=== PATIENT | male | born 1970 | race Caucasian/White ===

== ENCOUNTER → 2016-10-27 | Outpatient (REF) | payer OTHER ==
[2016-10-27 14:06] LABS: ALBUMIN 4.4 GM/DL (3.2-5.2); ALBUMIN/GLOBULIN RATIO 1.63 (1.00-1.93); ALKALINE PHOSPHATASE 53 U/L (45-117); ALT/SGPT 32 U/L (12-78); ANION GAP 8 MEQ/L (8-16); AST/SGOT 15 U/L (15-37); BILIRUBIN,TOTAL 0.6 MG/DL (0.2-1.0); BLOOD UREA NITROGEN 12 MG/DL (7-18); CALCIUM LEVEL 9.5 MG/DL (8.5-10.1); CARBON DIOXIDE LEVEL 27 MEQ/L (21-32); CHLORIDE LEVEL 107 MEQ/L (98-107); CHOLESTEROL LEVEL 207 MG/DL (<200); CREATININE FOR GFR 0.95 MG/DL (0.70-1.30); GLOMERULAR FILTRATION RATE > 60.0 (>60); GLUCOSE, FASTING 97 MG/DL (70-105); POTASSIUM SERUM 4.1 MEQ/L (3.5-5.1); SODIUM LEVEL 142 MEQ/L (136-145); TOTAL PROTEIN 7.1 GM/DL (6.4-8.2); TRIGLYCERIDES LEVEL 172 MG/DL (<150)
== END ==
LOC: M LAB REF 12:40
PROVIDERS: ATTEND Family Medicine Addiction Medicine
DX: E78.5 Hyperlipidemia, unspecified (principal)

== ENCOUNTER 2019-12-27 04:14 | Emergency (ER) | payer OTHER ==
[~2019-12-27] VITALS: Ht 167.6 cm; Wt 72.4 kg
[2019-12-27] MEDS ORDERED: CLAR10CA3 PO (04:26)
[2019-12-27] MEDS ORDERED: GI COCKTAIL 50ML BTL(HYOSCYAMINE/MAALOX/LIDOCAINE VISCOUS)(1:3:1) PO ONE (06:30)
[2019-12-27 06:56] LABS: BASO % 0.5 % (0.0-1.0); EOS % 0.2 % (0.0-3.0); HEMATOCRIT 43.2 % (42.0-52.0); HEMOGLOBIN 15.4 g/dl (13.5-17.5); LYMPH % 12.6 % (24.0-44.0); MEAN CORPUSCULAR HEMOGLOBIN 33.6 pg (27.0-33.0); MEAN CORPUSCULAR HGB CONC 35.6 g/dl (32.0-36.5); MEAN CORPUSCULAR VOLUME 94.1 fl (80.0-96.0); MONO # 1.3 10^3/uL (0.0-0.8); MONO % 16.3 % (0.0-5.0); NEUTROPHILS # 5.7 10^3/uL (1.5-8.5); NEUTROPHILS % 69.9 % (36.0-66.0); PLATELET COUNT, AUTOMATED 195 10^3/uL (150-450); RED BLOOD COUNT 4.59 10^6/uL (4.30-6.10); WHITE BLOOD COUNT 8.2 10^3/uL (4.0-10.0)
[2019-12-27 07:29] LABS: ALBUMIN 3.8 GM/DL (3.2-5.2); BILIRUBIN,DIRECT 0.3 MG/DL (0.0-0.2); BILIRUBIN,TOTAL 1.1 MG/DL (0.2-1.0); C REACTIVE PROTEIN QUANTITATIV 8.18 MG/DL (0.00-0.30); CALCIUM LEVEL 9.5 MG/DL (8.5-10.1); CREATININE FOR GFR 1.48 MG/DL (0.70-1.30); GLOMERULAR FILTRATION RATE 53.3 (>56); POTASSIUM SERUM 2.7 MEQ/L (3.5-5.1); TOTAL PROTEIN 7.6 GM/DL (6.4-8.2)
[2019-12-27] MEDS ORDERED: CARA1TAB6 PO (07:30)
[2019-12-27] MEDS ORDERED: ONDA4TAB6 PO (07:30)
[2019-12-27] MEDS ORDERED: PROT1TAB2 PO (07:30)
[2019-12-27 07:31] LABS: ERYTHROCYTE SEDIMENTATION RATE 51 mm/hr (0-20)
[2019-12-27] MEDS ORDERED: PANTOPRAZOLE 40MG VIAL (C9113 PER 1) IV ONE (07:45)
[2019-12-27] MEDS ORDERED: POTASSIUM CHLORIDE 10 MEQ SR TABLET PO ONE (07:45)
[2019-12-27] MEDS ORDERED: KCL 10MEQ/100ML SWI (KRUN) 10 MEQ in IV 1 EA IV ONE (07:45)
[2019-12-27] MEDS ORDERED: NS 1,000 ML IV ONE (07:45)
[2019-12-27 09:30] VITALS: BP 160/93
[2019-12-27] MEDS ORDERED: POTA1TAB14 PO (09:31)
--- NOTE | 2019-12-27 19:00 | ECGEPIP ---
[facility] - ED Test Date: 2019-12-27 Pat Name: DAWSON ROGERS Department: Room: - Gender: Male Care Services Manager: SAMANTAMANPREET : 1970 Requested By: ACE CRUZ PA-C. Order Number: [id number] Reading MD: Sissy Beverly Measurements Intervals [place] Rate: 88 P: 43 [place]: 151 QRS: 57 QRSD: 102 T: 43 QT: 388 QTc: 471 Interpretive Statements SINUS RHYTHM NONSPECIFIC T-WAVE ABNORMALITY PROLONGED QTC NO PRIOR Electronically Signed on 12-27-2019 18:59:51 EST by Sissy Beverly
== END 2019-12-27 10:19 | disposition home or self-care (01) ==
LOC: M ED 04:14
DX: K27.9 Peptic ulcer, site unspecified, unspecified as acute or chronic, without hemorrhage or perforation (principal); E86.0 Dehydration; E87.6 Hypokalemia; J45.909 Unspecified asthma, uncomplicated
CPT/HCPCS: 80048; 80076; 83690; 85025; 85652; 86140; 87880; 93005; 93041; 96361; 96365; 96375; 99285; C9113

== ENCOUNTER → 2020-01-31 | Outpatient (REF) | payer OTHER ==
[~2020-01-31] MED LIST: CARA1TAB6 PO; CLAR10CA3 PO; ONDA4TAB6 PO; POTA1TAB14 PO; PROT1TAB2 PO
[2020-01-31 17:47] LABS: BASO % 0.7 % (0.0-1.0); EOS # 0.1 10^3/uL (0.0-0.5); EOS % 1.8 % (0.0-3.0); HEMATOCRIT 37.3 % (42.0-52.0); LYMPH # 1.2 10^3/uL (1.5-5.0); LYMPH % 21.4 % (24.0-44.0); MEAN CORPUSCULAR HEMOGLOBIN 33.2 pg (27.0-33.0); MEAN CORPUSCULAR HGB CONC 34.9 g/dl (32.0-36.5); MEAN CORPUSCULAR VOLUME 95.2 fl (80.0-96.0); MONO # 0.6 10^3/uL (0.0-0.8); MONO % 11.5 % (0.0-5.0); NEUTROPHILS # 3.5 10^3/uL (1.5-8.5); NEUTROPHILS % 64.2 % (36.0-66.0); PLATELET COUNT, AUTOMATED 135 10^3/uL (150-450); RED BLOOD COUNT 3.92 10^6/uL (4.30-6.10); WHITE BLOOD COUNT 5.5 10^3/uL (4.0-10.0)
[2020-01-31 18:06] LABS: ALBUMIN 4.4 GM/DL (3.2-5.2); ALT/SGPT 38 U/L (12-78); BILIRUBIN,TOTAL 0.9 MG/DL (0.2-1.0); BLOOD UREA NITROGEN 12 MG/DL (7-18); CALCIUM LEVEL 8.7 MG/DL (8.5-10.1); CARBON DIOXIDE LEVEL 26 MEQ/L (21-32); CHLORIDE LEVEL 101 MEQ/L (98-107); CHOLESTEROL LEVEL 243 MG/DL (<200); CHOLESTEROL RISK RATIO 6.394 (<5); CREATININE FOR GFR 0.87 MG/DL (0.70-1.30); GLOMERULAR FILTRATION RATE > 60.0 (>56); GLUCOSE, FASTING 107 MG/DL (70-100); HDL CHOLESTEROL 38 MG/DL (>40); LDL CHOLESTEROL 174 MG/DL (<100); NON-HDL-C 205 MG/DL; POTASSIUM SERUM 3.1 MEQ/L (3.5-5.1); SODIUM LEVEL 137 MEQ/L (136-145); TOTAL PROTEIN 7.3 GM/DL (6.4-8.2); TRIGLYCERIDES LEVEL 157 MG/DL (<150)
== END ==
LOC: M LAB REF 16:27
PROVIDERS: ATTEND Physician Assistant
DX: F51.04 Psychophysiologic insomnia (principal); Z13.228 Encounter for screening for other metabolic disorders; Z13.220 Encounter for screening for lipoid disorders

== ENCOUNTER 2020-03-04 12:25 | Inpatient (IN) | payer OTHER ==
[~2020-03-04] VITALS: Ht 167.6 cm; Wt 76.8 kg
--- OUTSIDE RECORDS SUMMARY | 2020-03-04 12:31 | CCD ---
Author Author [facility] Organization [facility] Address Unknown Phone Unavailable Care Team Providers Care Microstrategy Developer Name Role Phone [facility], JLAM Unavailable Unavailable Scordo, M Rain PA Unavailable Unavailable Scordo, M Rain PA Unavailable Unavailable Scordo, M Rain PA Unavailable Unavailable Scordo, M Rain PA Unavailable Unavailable Scordo, M Rain PA Unavailable Unavailable Scordo, M Rain PA Unavailable Unavailable Scordo, M Rain PA Unavailable Unavailable Scordo, M Rain PA Unavailable Unavailable Scordo, M Rain PA Unavailable Unavailable Scordo, M Rain PA Unavailable Unavailable Scordo, M Rain PA Unavailable Unavailable Scordo, M Rain PA Unavailable Unavailable Scordo, M Rain PA Unavailable Unavailable Scordo, M Rain PA Unavailable Unavailable Scordo, M Rain PA Unavailable Unavailable Scordo, M Rain PA Unavailable Unavailable Scordo, M Rain PA Unavailable Unavailable Scordo, M Rain PA Unavailable Unavailable Scordo, M Rain PA Unavailable Unavailable Scordo, M Rain PA Unavailable Unavailable Scordo, M Rain PA Unavailable Unavailable Scordo, M Rain PA Unavailable Unavailable Scordo, M Rain PA Unavailable Unavailable Scordo, M Rain PA Unavailable Unavailable Scordo, M Rain PA Unavailable Unavailable Scordo, M Rain PA Unavailable Unavailable Scordo, M Rain PA Unavailable Unavailable Scordo, M Rian PA Unavailable Unavailable Scordo, M Rain PA Unavailable Unavailable Scordo, M Rain PA Unavailable Unavailable Scordo, M Rain PA Unavailable Unavailable Scordo, M Rain PA Unavailable Unavailable Scordo, M Rain PA Unavailable Unavailable Scordo, M Rain PA Unavailable Unavailable Scordo, M Rain PA Unavailable Unavailable Scordo, M Rain PA Unavailable Unavailable Scordo, M Rain PA Unavailable Unavailable Scordo, M Rain PA Unavailable Unavailable Scordo, M Rain PA Unavailable Unavailable Scordo, M Rain PA Unavailable Unavailable Dille, E Rema DDS Unavailable Unavailable Dille, E Rema DDS Unavailable Unavailable Dille, E Rema DDS Unavailable Unavailable Dille, E Rema DDS Unavailable Unavailable Re-disclosure Warning The records that you are about to access may contain information from federally-assisted alcohol or drug abuse programs. If such information is present, then the following federally mandated warning applies: This information has been disclosed to you from records protected by federal confidentiality rules (42 CFR part 2). The federal rules prohibit you from making any further disclosure of this information unless further disclosure is expressly permitted by the written consent of the person to whom it pertains or as otherwise permitted by 42 CFR part 2. A general authorization for the release of medical or other information is NOT sufficient for this purpose. The Federal rules restrict any use of the information to criminally investigate or prosecute any alcohol or drug abuse patient.The records that you are about to access may contain highly sensitive health information, the redisclosure of which is protected by Article 27-F of the [facility] Public Health law. If you continue you may have access to information: Regarding HIV / AIDS; Provided by facilities licensed or operated by the [facility] Office of Mental Health; or Provided by the [facility] Office for People With Developmental Disabilities. If such information is present, then the following [facility] mandated warning applies: This information has been disclosed to you from confidential records which are protected by state law. State law prohibits you from making any further disclosure of this information without the specific written consent of the person to whom it pertains, or as otherwise permitted by law. Any unauthorized further disclosure in violation of state law may result in a fine or penitentiary sentence or both. A general authorization for the release of medical or other information is NOT sufficient authorization for further disc losure. Family History Family Member Name Family Member Gender Family Member Status Date o f Status Description Data Source(s) Unknown Unknown Problem MED[facility] ([facility]) Encounters Encounter Providers Location Date Indications Data Source(s ) Rain Calero PA-C: [address] [place] [phone], Ph. Attender: Rain [facility] - [facility] 01[facility]30/2020 12:00:00 AM EST ANA ([facility]) [facility]/07/2019 12:02:20 AM EDT [facility] 11/06/2019 03:05:00 PM EDT [facility] 11/06/2019 02:55:01 PM EDT [facility] 11/06/2019 02:06:01 PM EDT [facility] 11/06/2019 02:05:00 PM EDT [facility] 10/15/2019 01:46:00 PM EDT [facility] 10/15/2019 01:33:00 PM EDT [facility] 10/15/2019 01:28:01 PM EDT [facility] Out[facility] 10/15/2019 10:55:01 AM EDT [facility] Out[facility] 10/15/2019 09:20:00 AM EDT [facility] Outpatient Att[facility] 10/15/2019 08:41:00 AM EDT [facility] Outpatient [facility] 10/15/2019 08:01:01 AM EDT [facility] Outpatient [facility]: [facility] 10/15/2019 07:43:00 AM EDT [facility] Outpatient Attender: TRESSA HOBBS FP 10/10/2019 10:45:01 AM EDT [facility] 08/16/2019 12:02:07 AM EDT [facility] Outpatient Attender: TRESSA HOBBS [facility] 08/15/2019 12:40:00 PM EDT [facility] Outpatient Attender: TRESSA HOBBS FP 08/15/2019 12:39:00 PM EDT [facility] Outpatient Attender: Rema Haywood DDS [facility] 07/31/2019 10:01:01 A M EDT [facility] Outpatient Attender: Rema Haywood DDS [facility] 07/30/2019 02:59:00 P M EDT [facility] Outpatient Attender: Rema Haywood DDS [facility] 07/24/2019 07:41:54 P M EDT [facility] Outpatient Attender: Rema Haywood DDS [facility] Prov[facility] Payer name Policy type / Coverage type Policy ID Covered republican ID Covered republican's relationship to nassar Policy Nassar Plan Information [facility] [id number] SP [id number] Sliding Fee Scale O [id number] S [id number] [facility] P [id number] S [id number] Medicaid S [id number] S [id number] [facility] P [id number] S [id number] [facility] UNAVAILABLE S UNAVAILA BLE [facility] P [id number] S [id number] [facility] Health Maintenance Organization (HMO) [id number] Self [id number] [facility] S [id number] S [id number] [facility] P [id number] S [id number] Medicaid Dental S [id number] S [id number] [facility] P [id number] S [id number] Medicaid S [id number] S [id number] [facility] P [id number] S [id number] MEDICAID [id number] SP [id number] [facility] I [id number] Self [id number] MEDICAID M [id number] Self [id number] Medicaid P UNAVAILABLE S UNAVAILA BLE Problems, Conditions, and Diagnoses Code Display Name Description Problem Type Effective Dates Data Source(s) 18986974 Crohn's disease Crohn's Disease Problem 11/29/2019 04:1 3:38 PM EDT ANA ([facility]) [id number] Depressive disorder Depressive Disorder Problem 1 04:13:38 PM EDT ANA ([facility]) [id number] Asthma Asthma Problem 11/29/2019 04:13:37 PM ED T ANA ([facility]) [id number] Tobacco use and exposure - finding Tobacco Use a nd Exposure - Finding Problem 10/26/2016 12:00:00 AM EDT - 01/30/2020 12:00:00 AM ES Didi PEREZ ([facility]) [id number] Procedure by method Procedure by Method Problem 0 10/26/2016 12:00:00 AM EDT - 01/30/2020 12:00:00 AM EST ANA ([facility]) Results ID Date Data Source [id number] 11/06/2019 02:09:07 PM EDT [facility] Current Problems: Chews tobacco (ICD10-Z 72.0)Encounter for general adult medical examination with abnormal findings (ICD-V70.0) (IAY80-Y02.01)DENTAL CARIES EXTENDING INTO PULP (ICD-521.03) (HTA85-Q31.63)Machias teeth impaction (ICD- 520.6) (TSE77-Y02.1)Hyperlipidemia (ICD-272.4) (OUO04-O55.5)Vitamin D deficiency (ICD-268.9) (SPY79-A31.9)Ventral hernia without mention of obstruction or gangrene (ICD-553.2)Allergic rhinitis (ICD-477.9) (QKU63-E98.9)INGUINAL HERNIA, LEFT (ICD-550.90) (AYM62-N71.90)HYPERTENSION (ICD-401.9) (IMR54-L27)FRACTURE, CLAVICLE, RIGHT (ICD-810.00) (NYW83-O73.001)ALCOHOL ABUSE (ICD-305.00) (ICD10- F10.10)CROHN'S DISEASE (ICD-555.9) (BJD74-Z00.90)FAMILY HISTORY OF SEVERE ALLERGIES (ICD-V19.6) HIGH CHOLESTEROL (ICD-V18.19) (TZJ62-V34.49)FAMILY HISTORY OF ASTHMA (ICD-V17.5) (TYR57-W91.5)FH OF ANESTHETIC COMPLICATIONS (ICD- V19.8)FAMILY HISTORY OF ALCOHOLISM (ICD-V61.41) (VTO18-S11.72)DEPRESSION (ICD- 311) (WXS90-F10.9)ASTHMA (ICD-493.90) (KPS97-J90.909)Current Medications: [facility] NI COTINE 2 MG MOUTH/THROAT LOZENGE (NICOTINE POLACRILEX) Use 1-2 every 3-4 hours as needed. MDD 15 lozenges.; Route: MOUTH/THROATEPIPEN 2-TAMEKA 0.3 MG/0.3ML INJECTION SOLUTION AUTO-INJECTOR (EPINEPHRINE) inj as directed for beestingsVENTOLIN HFA 108 (90 Base) MCG/ACT INHALATION AEROSOL SOLUTION (ALBUTEROL SULFATE) 2 puffs qid prn for short of breathCurrent Allergies: * ANESTHESIA (Critical)* BEE STINGS (Critical)* LATEX (Severe)LISINOPRIL (LISINOPRIL) (Mild) Dental Chart: Procedures:Type - CDT Code - Description B - (D2150) Amalgam, 2 surfaces, primary or permanent on Tooth # 12 on Tooth Surface OB (Performed by Rema Haywood DDS) Chart Alert:No hx per [facility] online records. 09/21/2016 RR Chart Notes:molly (Nov 06 2019 3:01PM): [facility] (-)per pt states that tested positive for COVID-19 back June of 2019. [email or web address] Additional PPE requirements due to COVID-19 in the dental setting, N95, surgical mask, hair covering, gown CC: none. Hurricaine Watermelon Topical, UL infiltration 1 carp Lidocaine HCL 2% with 1:100,000 epi. Operative: #12-OB final step AmalgaBond and Amalgam. Excavated with High Speed, Slow Speed and Spoon. Occlusion checked and polished. No complications. Advised pt. if adventism fails again, composite can be attempted or as previously stated, a crown to be done on #12. POI given and discussed with pt. Assisted by:AMPt was cooperative. NV: p/e.Per pt. requests adventism on #32 and #17. Advised pt. that would discuss with provider who tx planned originally first.Rema Haywood DDS by molly (11/06/2019 3:01 PM): Tooth Notes and Watches:- Tooth 12 Note: Rema Haywood DDS by tiffany (10/15/2019 9:14 AM): Lidocaine is to be used. - Tooth 21 Watch: MesialBria Bueno by anne marie (06/02/2018 11:10 AM): - Tooth 31 Watch: BuccalBria Bueno by anne marie (06/02/2018 11:10 AM): Assessment & Plan Medications:[facility]S NICOTINE 2 MG MOUTH/THROAT LOZENGEEPIPEN 2-TAMEKA 0.3 MG/0.3ML INJECTION SOLUTION AUTO-INJECTORVENTOLIN HFA 108 (90 Base) MCG/ACT INHALATION AEROSOL SOLUTIONAllergies:* ANESTHESIA (Critical)* BEE STINGS (Critical)* LATEX (Severe)LISINOPRIL (LISINOPRIL) (Mild) Name Value Range Interpretation Code Description Data Jenn rce(s) Supporting Document(s) ID Date Data Source [id number] 10/15/2019 08:45:32 AM EDT [facility] Current Problems: Chews tobacco (ICD10-Z 72.0)Encounter for general adult medical examination with abnormal findings (ICD-V70.0) (HQH92-Q04.01)DENTAL CARIES EXTENDING INTO PULP (ICD-521.03) (QUV04-G31.63)Machias teeth impaction (ICD- 520.6) (EKZ89-N91.1)Hyperlipidemia (ICD-272.4) (OCN08-H21.5)Vitamin D deficiency (ICD-268.9) (GRX78-F13.9)Ventral hernia without mention of obstruction or gangrene (ICD-553.2)Allergic rhinitis (ICD-477.9) (CUR30-P52.9)INGUINAL HERNIA, LEFT (ICD-550.90) (EEK99-O44.90)HYPERTENSION (ICD-401.9) (WLS84-C58)FRACTURE, CLAVICLE, RIGHT (ICD-810.00) (OMS82-M35.001)ALCOHOL ABUSE (ICD-305.00) (ICD10- F10.10)CROHN'S DISEASE (ICD-555.9) (VEQ39-H89.90)FAMILY HISTORY OF SEVERE ALLERGIES (ICD-V19.6)FH HIGH CHOLESTEROL (ICD-V18.19) (ZLK38-F20.49)FAMILY HISTORY OF ASTHMA (ICD-V17.5) (GMF46-B83.5)FH OF ANESTHETIC COMPLICATIONS (ICD- V19.8)FAMILY HISTORY OF ALCOHOLISM (ICD-V61.41) (YHQ38-W32.72)DEPRESSION (ICD- 311) (JSF93-D84.9)ASTHMA (ICD-493.90) (MEE74-U06.909)Problem list reviewed nelda shaffer this update.Current Medications: CVS NICOTINE 2 MG MOUTH/THROAT LOZENGE (NICOTINE POLACRILEX) Use 1-2 every 3-4 hours as needed. MDD 15 lozenges.; Route: MOUTH/THROATEPIPEN 2-TAMEKA 0.3 MG/0.3ML INJECTION SOLUTION AUTO-INJECTOR (EPINEPHRINE) inj as directed for beestingsVENTOLIN HFA 108 (90 Base) MCG/ACT INHALATION AEROSOL SOLUTION (ALBUTEROL SULFATE) 2 puffs qid prn for short of breathMedication list reviewed during this update.Current Allergies: * ANESTHESIA (Critical)* BEE STINGS (Critical)* LATEX (Severe)LISINOPRIL (LISINOPRIL) (Mild)Allergy list reviewed during this update. Dental Chart: Procedures:Type - CDT Code - Description B - (D0250) Extraoral, 2D projection radiographic images created using a stationary radiation source, and detector (Performed by Rema Haywood DDS) B - (D0140) Limited oral evaluation - problem focused on Tooth # 12 (Performed by Rema Haywood DDS) Treatments:Type - CDT Code - Description T - (D2150) Amalgam, 2 surfaces, primary or permanent on Tooth # 12 on Tooth Surface OB (Performed by Rema Haywood DDS) Chart Alert:No hx per [facility] online records. 09/21/2016 RR Chart Notes:molly (Oct 15 2019 10:54AM): Additional PPE requirements due to COVID-19 in the dental setting, N95, surgical mask, hair covering, gown and shield. .S: CC:"I had a really weird cavity on the inside of my tooth and all the sudden my tooth fell apart, rubs on the inside of my cheek"O: RMHx Latex and anesthesia allergies. HPI: couple weeks PL: 2 BP: 166/111. To visit his primary provider and have BP checked again. PA taken. # 12 has huge amlgam and chipped OB. A: DDS recommends [facility] for the best option. , DX:. chipped amalgam. P: Filling DDS informed pt filling may not stay. Pt. wants to try filling since he said his insurance will not pay for crown. Informed Pt about new pain management policy of the clinic regarding about narcotic,told pt to alternate Ibuprophen 600- 800mg and tylenol 500mg every 4 to 6 hrs for pain when needed. Assisted By: KYRA NV: Cece email for pt Rema Morales DDS by molly (10/15/2019 10:54 AM): Tooth Notes and Watches:- Tooth 12 Note: Rema Haywood DDS by tiffany (10/15/2019 9:14 AM): Lidocaine is to be used. - Tooth 21 Watch: MesialBria Bueno by anne marie (06/02/2018 11:10 AM): - Tooth 31 Watch: BuccalBria Bueno by anne marie (06/02/2018 11:10 AM): Assessment & Plan Medications:CVS NICOTINE 2 MG MOUTH/THROAT LOZENGEEPIPEN 2-TAMEKA 0.3 MG/0.3ML INJECTION SOLUTION AUTO- INJECTORVENTOLIN HFA 108 (90 Base) MCG/ACT INHALATION AEROSOL SOLUTIONAllergies:* ANESTHESIA (Critical)* BEE STINGS (Critical)* LATEX (Severe )LISINOPRIL (LISINOPRIL) (Mild) Name Value Range Interpretation Code Description Data Jenn rce(s) Supporting Document(s) Procedure Vital Signs ID Date Data Source UNK Name Value Range Interpretation Code Description Data Source(s) Body weight 2742.4 [oz_av] 2742.4 [oz_av] ATHJAY A ([facility]) Systolic blood pressure 166 mm[Hg] 166 mm[Hg] A THENA ([facility]) Body mass index (BMI) [Ratio] 27.2 kg/m2 27.2 k g/m2 ANA ([facility]) Body height 66.5 [in_i] 66.5 [in_i] ANA ([facility]) Diastolic blood pressure 115 mm[Hg] 115 mm[Hg] ANA ([facility])
--- OUTSIDE RECORDS SUMMARY | 2020-03-04 12:31 | CCD ---
Author Organization Unknown Address [address] [place] [address] Phone [phone] Care Team Providers Care Civil Geotechnical Engineer Name Role Phone Rain Calero Unavailable Unavailable Allergies Code Code System Name Reaction Severity Status Onset [id number] RxNorm Latex Active 08/16/2013 81147 RxNorm Lisinopril Active 10/26/2016 Bee Venom Protein (Honey Bee) Other Severe Active Notes: ANESTHESIA - Reaction: malignant hyperthermia Medications Name Status Start Date Stop Date Claritin 10 mg tablet Take 1 tablet every day by oral route. Active Not available hydroxyzine HCl 50 mg tablet 1 tablet once daily 30 mins before bedtime for sleep Active Not available ondansetron 4 mg disintegrating tablet DISSOLVE 1 TABLET IN MOUTH EVERY 6 TO 8 HOURS NEEDED FOR NAUSEA AND VOMITING Active Not available pantoprazole 40 mg tablet,delayed releas e TAKE 1 TABLET BY MOUTH ONCE DAILY Active Not a vailable potassium chloride ER 20 mEq tablet,extended release(part/cryst) Active Not available sucralfate 1 gram tablet TAKE 1 TABLET BY MOUTH 4 TIMES DAILY 1 HOUR BEFORE MEALS AND AT BEDTIME ON AN EMPTY STOMACH MAY DISSOLVE TABLET IN 5 10ML WATER. Active Not available Problems Name Status Onset Date Source Alcohol Abuse Active 08/16/2013 History Fracture of Clavicle Active 08/16/2013 History Hypertensive Disorder Active 11/14/2013 History Inguinal Hernia Active 11/14/2013 History Allergic Rhinitis Active 12/17/2013 History Vitamin D Deficiency Active 12/09/2014 History Hyperlipidemia Active 01/20/2015 History Impacted Tooth Active 09/27/2016 History Dental Caries on Smooth Surface Penetrating into Pulp Active 10/06/2016 History Procedure by Method Unknown 10/26/2016 History Tobacco Use and Exposure - Finding Unknown 10/26/2016 History Depressive Disorder Active History Asthma Active History Crohn's Disease Active History Procedures Notes: Fx Clavicle 04/2013, Hernia both s ides in s, Hernia-2013 Results Lab Results None recorded. Past Encounters 01/30/2020 Chronic Insomnia; Endocrine/metabolic Screening; Hyperlipidemia Screening; Gastric Ulcer; Mental Health Screening Assessment Rain Calero PA-C: [address] [place] [phone], Ph. Social History Tobacco Smoking Status Never Smoker Vaccine List Vaccine Type Tdap 10/26/20160.5 mL Plan of Care Reminders Provider Appointments None recorded. Lab None recorded. Referral None recorded. Procedures None recorded. Surgeries None recorded. Imaging None recorded. Vitals Height Weight BMI Blood Pressure 66.5 in 171 lbs 6.4 oz 27.2 kg/m2 166/115 mm[H g]
[2020-03-04] MEDS ORDERED: NS 2,320 ML in IV 1 EA IV ONE (13:00)
[2020-03-04 13:03] LABS: BASO # 0.1 10^3/uL (0.0-0.2); BASO % 0.7 % (0.0-1.0); EOS % 0.3 % (0.0-3.0); HEMATOCRIT 39.7 % (42.0-52.0); HEMOGLOBIN 13.6 g/dl (13.5-17.5); LYMPH # 2.4 10^3/uL (1.5-5.0); LYMPH % 25.4 % (24.0-44.0); MEAN CORPUSCULAR HEMOGLOBIN 32.8 pg (27.0-33.0); MEAN CORPUSCULAR HGB CONC 34.3 g/dl (32.0-36.5); MEAN CORPUSCULAR VOLUME 95.7 fl (80.0-96.0); MONO # 0.8 10^3/uL (0.0-0.8); MONO % 8.9 % (0.0-5.0); NEUTROPHILS % 62.9 % (36.0-66.0); RED BLOOD COUNT 4.15 10^6/uL (4.30-6.10); WHITE BLOOD COUNT 9.5 10^3/uL (4.0-10.0)
[2020-03-04 13:29] LABS: CK-MB VALUE MASS 1.8 NG/ML (<3.6); CPK CREATINE PHOSPHOKINASE 604 U/L (39-308); TROPONIN I < 0.02 NG/ML (< 0.10)
[2020-03-04 13:39] LABS: PLATELET COUNT, AUTOMATED 79 10^3/uL (150-450)
[2020-03-04 13:48] LABS: ALBUMIN 4.4 GM/DL (3.2-5.2); BILIRUBIN,TOTAL 1.8 MG/DL (0.2-1.0); CALCIUM LEVEL 9.2 MG/DL (8.5-10.1); CREATININE FOR GFR 1.89 MG/DL (0.70-1.30); GLOMERULAR FILTRATION RATE 40.2 (>56); POTASSIUM SERUM 2.4 MEQ/L (3.5-5.1); THYROID STIMULATING HORMONE 2.71 uIU/ML (0.358-3.740); TOTAL PROTEIN 7.6 GM/DL (6.4-8.2)
--- NOTE | 2020-03-04 13:51 | REP ---
INDICATION: cough, sob. COMPARISON: None. TECHNIQUE: SINGLE PORTABLE AP VIEW OF THE CHEST WAS PERFORMED. FINDINGS: THERE IS NO ACUTE INFILTRATE OR PULMONARY EDEMA. LUNGS ARE CLEAR. HEART IS NOT SIGNIFICANTLY ENLARGED. MEDIASTINAL SILHOUETTE IS UNREMARKABLE. THE VISUALIZED OSSEOUS STRUCTURES ARE INTACT.Two small screws are seen in the distal right clavicle. There is mild elevation of the right hemidiaphragm. IMPRESSION: NO ACUTE PULMONARY DISEASE. <Electronically signed by Deven Peters > 03/04/20 1039
[2020-03-04] MEDS ORDERED: KCL 10MEQ/100ML SWI (KRUN) 10 MEQ in IV 1 EA IV ONE (14:15)
[2020-03-04] MEDS ORDERED: cefTRIAXone SOD 2 GM in D5W MINI-BAG PLUS 50 ML IV ONE (14:15)
--- NOTE | 2020-03-04 15:09 | REP ---
INDICATION: fever, lactic acidosis. COMPARISON: Radiograph today. TECHNIQUE: CT chest performed without the use of intravenous contrast. Sagittal and coronal reconstruction images are performed. FINDINGS: Lungs: Clear, no infiltrate or nodule. Mediastinum: No gross adenopathy. Betina: No gross adenopathy. Axilla: No gross adenopathy. Pleura: No effusion. Heart: Not enlarged. Thoracic aorta: No aneurysm. Upper abdominal structures: Grossly unremarkable. IMPRESSION: Unremarkable noncontrast CT chest. <Electronically signed by Deven Peters > 03/04/20 [id number]
--- NOTE | 2020-03-04 15:17 | REP ---
INDICATION: fever, lactic acidosis COMPARISON: None. TECHNIQUE: CT Scan of the abdomen and pelvis was performed without intravenous contrast. Sagittal and coronal reconstruction images performed. FINDINGS: Lung bases: Unremarkable. Liver: There is diffuse low attenuation throughout the liver. The findings may represent significant fatty infiltration or hepatitis. The liver does not appear to be enlarged. Gallbladder: Dense bile is seen in the gallbladder. Spleen: Grossly unremarkable.. Adrenals: Normal. Pancreas: Grossly unremarkable.. Kidneys: No hydronephrosis or nephrolithiasis. Ureters demonstrate no dilatation or calculus. Small and large bowel: Grossly unremarkable.. Free fluid: None. Abdominal aorta: No aneurysm. Adenopathy: None. Appendix: Not inflamed. Osseous structures: Unremarkable. Pelvis: No mass. No bladder calculus seen. There is a small left inguinal hernia containing fat. IMPRESSION: Diffuse low attenuation throughout the liver. This may indicate significant fatty infiltration or hepatitis. Dense bile is seen in the gallbladder. Small left inguinal hernia contains fat. <Electronically signed by Deven Peters > 03/04/20 [id number]
[2020-03-04] MEDS ORDERED: GLUCAGON INJ 1MG VIAL SC PRN (16:00)
[2020-03-04] MEDS ORDERED: GLUCOSE 4GM CHEW TABLET PO PRN (16:00)
[2020-03-04] MEDS ORDERED: DEXTROSE 50% 50 ML SYRINGE IV PRN (16:00)
[2020-03-04] MEDS: KCL 40MEQ in NS 1000ML 1,000 ML IV SCH ×2 (16:07→23:23)
[2020-03-04] MEDS ORDERED: CLAR10TA7 PO (16:14)
[2020-03-04] MEDS ORDERED: PANT40TA29 PO (16:14)
[2020-03-04] MEDS ORDERED: VITMTA PO (16:14)
[2020-03-04] MEDS ORDERED: CALC600T61 PO (16:14)
[2020-03-04] MEDS ORDERED: ONDA4TAB6 PO (16:14)
[2020-03-04] MEDS ORDERED: HYDR50TA70 PO (16:14)
[2020-03-04] MEDS ORDERED: HM P99TA PO (16:14)
[2020-03-04] MEDS ORDERED: SUCR1TAB56 PO (16:14)
--- NOTE | 2020-03-04 16:27 | REP ---
INDICATION: pain. COMPARISON: 12/19/2013. TECHNIQUE: Real-time sonographic evaluation of right upper quadrant performed. FINDINGS: The gallbladder demonstrates intraluminal sludge, but no calculi, wall thickening or pericholecystic fluid. There is no intrahepatic or extrahepatic biliary dilatation, common bile duct measures 4 mm in maximum diameter. The liver demonstrates diffuse increased heterogeneous echotexture compatible with diffuse fibrofatty infiltration. No gross mass is seen. Pancreas cannot be seen due to overlying bowel gas. The right kidney demonstrates no hydronephrosis, with a normal size of 11.6 cm in length. No free fluid is seen. IMPRESSION: Gallbladder sludge but no stones, wall thickening, pericholecystic fluid or evidence of biliary dilatation. Diffuse fibrofatty infiltration of the liver. <Electronically signed by Deven Peters > 03/04/20 1342
[2020-03-04 17:20] LABS: D-DIMER QUANT 2554.01 ng/ml (<500)
[2020-03-04 17:43] LABS: BLOOD UREA NITROGEN 13 MG/DL (7-18); CALCIUM LEVEL 8.4 MG/DL (8.5-10.1); CARBON DIOXIDE LEVEL 26 MEQ/L (21-32); CHLORIDE LEVEL 98 MEQ/L (98-107); CREATININE FOR GFR 1.46 MG/DL (0.70-1.30); FERRITIN 3350 NG/ML (26-388); GLOMERULAR FILTRATION RATE 54.2 (>56); GLUCOSE, FASTING 124 MG/DL (70-100); LDH LACTATE DEHYDROGENASE 418 U/L (87-241); POTASSIUM SERUM 2.4 MEQ/L (3.5-5.1); SODIUM LEVEL 132 MEQ/L (136-145); TROPONIN I < 0.02 NG/ML (< 0.10)
[2020-03-04] MEDS ORDERED: ONDANSETRON 4MG/2ML VIAL IV PRN (18:00)
[2020-03-04] MEDS ORDERED: ACETAMINOPHEN 500 MG TAB PO ONE (18:00)
[2020-03-04] MEDS ORDERED: FIORICET TAB PO ONE (19:15)
--- NOTE | 2020-03-04 19:34 | HPEPDOC ---
[facility] Medical History & Physical Date of Admission Mar 04, 2020 Date of Service: Mar 04, 2020 History and Physical CHIEF COMPLAINT: intractable nausea, vomiting, diarrhea HISTORY OF PRESENT ILLNESS: 49 y/o male w pmh significant for peptic ulcer disease on chronic protonix and carafate, asthma, htn, hernia repair x 3, malignant hyperthermia postop presents to the ED with generalized weakness, dizziness, crawling into the bathroom with his roommate assisitng him, due to severe dehydration from 3-5 nonprojectile nonbilious vomiting for the past few days, diarrhea 5x/day loose watery voluminous nonbloody nonmucusy with epigastric abdominal discomfort and fever 103 today. Pt says his symptoms nausea and vomiting has been going on since April last year 2-3days/week but abates w/o intervention, w/o weight loss, dy sphagia, hematemesis, or chest pain. He denies drinking well water, any recent travel, recent antibiotic use, exposure to covid or anyone with cdiff, or sorbitol use. He was referred to GI Dr. Vicente this month. He c/o having hallucinations thinking that his sister that he doesn't want to talk to was at the door knocking. He tried to stand up 2-3 times, but collapsed on the couch due to weakness and tremors. He c/o palpitations and started having sob with wheezing with generalized headache today.COVID -19 was negative in the ER. CT abd/pelvis: gallbladder sludge w/o biliary dilatation despite elevated bilirubin and lipase. He was found to have severe hypokalemia and acute renal failure. Hospitalist was asked to admit for acute kidney injury, hypokalemia, intractable n/v/diarrhea. PAST MEDICAL /SURGICAL HISTORY: peptic ulcer disease on chronic protonix and carafate, asthma, htn, hernia repair x 3, malignant hyperthermia postop SOCIAL HISTORY: lives with a roommate, denies ETOH /drug abuse, unemployed. 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 drank ETOH heavily when and daughter were killed by a drunk logging truck driver. FAMILY HISTORY: Father: ETOH liver cirrhosis Mother: crohns sister: breast cancer ALLERGIES: Please see below. REVIEW OF SYSTEMS: 12pt ROS negative aside from +findings on HPI HOME MEDICATIONS: Please see below. PHYSICAL EXAMINATION: VITAL SIGNS: see below GENERAL APPEARANCE: aaox 3 answering questions appropriately no distress no pallor or icterus HEENT: dry mm no cervical LAD, thyromegaly or JVD CARDIOVASCULAR: S1S2 sinus tachycardia LUNGS: diminished no rales ABDOMEN: +slight epigastric tenderness no rebound guarding soft +bs x 4quadrants tympanitic no fluid wave EXTREMITIES:-c/c/e LABORATORY DATA: See below. IMAGING: see below 03/04/20 CTABD/PELVIS CT Scan of the abdomen and pelvis was performed without intravenous contrast. Sagittal and coronal reconstruction images performed. FINDINGS: Lung bases: Unremarkable. Liver: There is diffuse low attenuation throughout the liver. The findings may represent significant fatty infiltration or hepatitis. The liver does not appear to be enlarged. Gallbladder: Dense bile is seen in the gallbladder. Spleen: Grossly unremarkable.. Adrenals: Normal. Pancreas: Grossly unremarkable.. Kidneys: No hydronephrosis or nephrolithiasis. Ureters demonstrate no dilatation or calculus. Small and large bowel: Grossly unremarkable.. Free fluid: None. Abdominal aorta: No aneurysm. Adenopathy: None. Appendix: Not inflamed. Osseous structures: Unremarkable. Pelvis: No mass. No bladder calculus seen. There is a small left inguinal hernia containing fat IMPRESSION: Diffuse low attenuation throughout the liver. This may indicate significant fatty infiltration or hepatitis. Dense bile is seen in the gallbladder. Small left inguinal hernia contains fat. <Electronically signed by Deven Peters > 03/04/20 1513 03/04/20 GALLBLADDER ULTRASOUND Real-time sonographic evaluation of right upper quadrant performed. FINDINGS: The gallbladder demonstrates intraluminal sludge, but no calculi, wall t hickening or pericholecystic fluid. There is no intrahepatic or extrahepatic biliary dilatation, common bile duct measures 4 mm in maximum diameter. The liver demonstrates diffuse increased heterogeneous echotexture compatible with diffuse fibrofatty infiltration. No gross mass is seen. Pancreas cannot be seen due to overlying bowel gas. The right kidney demonstrates no hydronephrosis, with a normal size of 11.6 cm in length. No free fluid is seen. IMPRESSION: Gallbladder sludge but no stones, wall thickening, pericholecystic fluid or evidence of biliary dilatation. Diffuse fibrofatty infiltration of the liver. <Electronically signed by Deven Peters > 03/04/20 1624 03/04/[address] chest performed without the use of intravenous contrast. Sagittal and coronal reconstruction images are performed. FINDINGS: Lungs: Clear, no infiltrate or nodule. Mediastinum: No gross adenopathy. Betina: No gross adenopathy. Axilla: No gross adenopathy. Pleura: No effusion. Heart: Not enlarged. Thoracic aorta: No aneurysm. Upper abdominal structures: Grossly unremarkable. IMPRESSION: Unremarkable noncontrast CT chest. <Electronically signed by Deven Peters > 03/04/20 4715 MICROBIOLOGY: Please see below. ASSESSMENT/PLAN: 49 y/o male w pmh significant for peptic ulcer disease on chronic protonix and carafate, asthma, htn, hernia repair x 3, malignant hyperthermia postop presents to the ED with generalized weakness, dizziness, crawling into the bathroom with his roommate assisting him, due to severe dehydration from 3-5 nonprojectile nonbilious vomiting for the past few days, diarrhea 5x/day loose watery voluminous nonbloody nonmucusy with epigastric abdominal discomfort and fever 103 today. Pt says his symptoms nausea and vomiting has been going on since April last year 2-3days/week but abates w/o intervention, w/o weight loss, dysphagia, hematemesis, or chest pain. He denies drinking well water, any recent travel, or sorbitol use. He was referred to GI Dr. Vicente this month. He c/o having hallucinations thinking that his sister that he doesn't want to talk to was at the door knocking. He tried to stand up 2-3 times, but collapsed on the couch due to weakness and tremors. He c/o palpitations and started having sob with wheezing with generalized headache today.COVID -19 was negative in the ER. CT abd/pelvis: gallbladder sludge w/o biliary dilatation despite elevated bilirubin and lipase. He was found to have severe hypokalemia and acute renal failure. Hospitalist was asked to admit for acute kidney injury, hypokalemia, intractable n/v/diarrhea. Fever of unknown origin -most likely viral infection due to c/o headache, diarrhea, n/v. -blood and urine cx ordered -ct chest/abd/pelvis unremarkable aside from gallbladder sludging -given empiric iv ceftriaxone in er. -on empiric iv cipro and flagyl which will be discontinued if negative ua and gi panel. -negative COVID-19 -check serial inflammatory markers and recheck covid-19 in 2 days Acute kidney injury -due to gi loss from vomiting and diarrhea -dizziness most likely from orthostasis. -on ivfluids -serial bmp -renally dosed meds -avoided nephrotoxins -strict i/o -if decreased urine output, bladderscan q6hrs to check pvr. Diarrhea -gi panel -covid 19 negative -if negative gi panel for ciff, lomotil prn Intractable n/v/diarrhea/epigatric pain/PUD -r/o gastrinoma, vipoma -check GI panel and tsh -ct abd: unremarkable aside from gall bladder sludging -liquid diet fo rnow -npo for ugiseries in am -ppi and carafate Abnormal LFT's -no biliary dilation to suspect obstruction from gall bladder sludging -check hepatitis serology, jade, antimitochondrial ab, ceruloplasmin, ferritin -denies etoh abuse now -covid -19 negative but will continue w serial inflammatory markers -if worsening bilirubin, may need mrcp Hypokalemia -due to diarrhea and vomiting -supplemented with serial mg and k monitoring asthma -prn proventil Vital Signs Vital Signs Date Time Temp Pulse Resp B/P (MAP) Pulse Ox O2 Delivery O2 Flow Rate FiO2 03/04/20 18:45 92 18 126/82 (97) 96 03/04/20 12:43 Room Air 03/04/20 12:36 97.6 Laboratory Data Labs 24H Laboratory Tests 2 03/04/20 12:47: Total Creatine Kinase 604H, Creatine Kinase MB 1.8, Creatine Kinase MB Relative Index 0.30, Troponin I < 0.02 03/04/20 12:48: Immature Granulocyte % (Auto) 1.8, Neutrophils (%) (Auto) 62.9, Lymphocytes (%) (Auto) 25.4, Monocytes (%) (Auto) 8.9H, Eosinophils (%) (Auto) 0.3, Basophils (%) (Auto) 0.7, Neutrophils # (Auto) 6.0, Lymphocytes # (Auto) 2.4, Monocytes # (Auto) 0.8, Eosinophils # (Auto) 0.0, Basophils # (Auto) 0.1, Nucleated Red Blood Cells % (auto) 0.3H, Immature Platelet Fraction 12.0H, Anion Gap 28H, Glomerular Filtration Rate 40.2L, Lactic Acid Level 22.4*H, Calcium Level 9.2, Total Bilirubin 1.8H, Direct Bilirubin 1.0H, Aspartate Amino Transf (AST/SGOT) 190H, Alanine Aminotransferase (ALT/SGPT) 65, Alkaline Phosphatase 70, Total Protein 7.6, Albumin 4.4, Albumin/Globulin Ratio 1.4, Lipase 869H, Thyroid Stimulating Hormone (TSH) 2.710 03/04/20 14:29: Lactic Acid Level 4.8*H 03/04/20 16:38: Troponin I < 0.02, Anion Gap 8, Glomerular Filtration Rate 54.2L, Calcium Level 8.4L, Erythrocyte Sedimentation Rate 6, Fibrinogen 287, D-Dimer, Quantitative 2554.01H, Magnesium Level 2.5H, Ferritin 3350H, Lactate Dehydrogenase 418H, C- Reactive Protein, Quantitative 0.30, Procalcitonin 3.94 03/04/20 17:49: Lactic Acid Followup at 4 Hours 3.6*H CBC/BMP Laboratory Tests 03/04/20 12:48 03/04/20 16:38 Microbiology Microbiology 03/04/20 Gastrointestinal Tract Panel (PCR), Received Pending 03/04/20 Gram Stain - Final, Resulted 03/04/20 Sputum Culture, Resulted Pending 03/04/20 Respiratory Virus Panel (PCR) (STAN) - Final, Complete 03/04/20 Blood Culture, Received Pending 03/04/20 Blood Culture, Received Pending Home Medications Scheduled Calcium Carbonate (Calcium) 600 Mg Tablet, 600 MG PO BID Loratadine (Claritin) 10 Mg Tablet, 10 MG PO DAILY Multivitamins (Thera M Plus Tablet) 1 Each Tablet, 1 TAB PO DAILY Pantoprazole Sodium (Pantoprazole Sodium) 40 Mg Tablet.dr, 40 MG PO DAILY Potassium Gluconate (Potassium) 99 Mg Tablet, 595 MG PO BID Sucralfate (Sucralfate) 1 Gm Tablet, 1 GM PO ACHS Scheduled PRN Hydroxyzine HCl (Hydroxyzine HCl) 50 Mg Tablet, 50 MG PO QHS PRN for SLEEP Ondansetron (Ondansetron Odt) 4 Mg Tab.rapdis, 4 MG PO QID PRN for NAUSEA OR VOMITING Allergies Coded Allergies: latex (Verified Allergy, Mild, 03/04/20) desflurane (Verified Adverse Reaction, Severe, GENERAL ANESTHESIA- MALIGNANT HYPERTHERMIA, 03/04/20) A-FIB/CHADSVASC A-FIB History Current/History of A-Fib/PAF?: No Current PO Anticoag Therapy: No Age/Risk Factor Scoring CHADSVASC: CHADSVASC Response (Comments) Value Age Risk Factor Age < 65 years old 0 Gender Risk Factor Male 0 Hx of CHF No 0 Hx of HTN No 0 Hx of Stroke/TIA/or VTE No 0 Hx of Diabetes No 0 Hx of Vascular Disease No 0 Total 0 Treatment Treatment ordered: NONE EVELYN ZAVALETA MD Mar 04, 2020 19:34
[2020-03-04] MEDS ORDERED: ALBUTEROL 90 MCG/ACT 8GM HFA INHALER INH PRN (19:45)
[2020-03-04] MEDS ORDERED: ENOXAPARIN 30MG/0.3ML SYRINGE (J1650 PER 10MG) SC ONE (19:45)
[2020-03-04 20:50] VITALS: BP 133/86
[2020-03-04] MEDS ORDERED: CIPROFLOXACIN 200 MG in IV 1 EA IV SCH (21:00)
[2020-03-04] MEDS ORDERED: POTASSIUM CHLORIDE 10 MEQ SR TABLET PO SCH (21:00)
[2020-03-04] MEDS: metroNIDAZOLE 500 MG in IV 1 EA IV SCH (22:40)
[2020-03-04] MEDS: SUCRALFATE 1 GM TAB PO SCH (22:41)
[2020-03-04 22:57] LABS: CALCIUM LEVEL 8.2 MG/DL (8.5-10.1); CREATININE FOR GFR 1.53 MG/DL (0.70-1.30); GLOMERULAR FILTRATION RATE 51.3 (>56); POTASSIUM SERUM 2.4 MEQ/L (3.5-5.1)
[2020-03-05] MEDS: CIPROFLOXACIN 200 MG in IV 1 EA IV SCH ×2 (00:30→15:35)
[2020-03-05] MEDS: ALBUTEROL 90 MCG/ACT 8GM HFA INHALER INH SCH ×5 (02:00→20:16)
[2020-03-05] MEDS: metroNIDAZOLE 500 MG in IV 1 EA IV SCH ×3 (04:46→20:08)
[2020-03-05 05:37] LABS: HEMATOCRIT 33.2 % (42.0-52.0); HEMOGLOBIN 11.8 g/dl (13.5-17.5); MEAN CORPUSCULAR HEMOGLOBIN 33.5 pg (27.0-33.0); MEAN CORPUSCULAR HGB CONC 35.5 g/dl (32.0-36.5); MEAN CORPUSCULAR VOLUME 94.3 fl (80.0-96.0); RED BLOOD COUNT 3.52 10^6/uL (4.30-6.10); WHITE BLOOD COUNT 8.4 10^3/uL (4.0-10.0)
[2020-03-05 05:41] LABS: PLATELET COUNT, AUTOMATED 53 10^3/uL (150-450)
--- NOTE | 2020-03-05 05:48 | ECGEPIP ---
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
[2020-03-05 06:00] VITALS: BP 138/77
[2020-03-05 06:10] LABS: D-DIMER QUANT 2035.07 ng/ml (<500)
[2020-03-05 06:21] LABS: ALBUMIN 4.1 GM/DL (3.2-5.2); ALT/SGPT 76 U/L (12-78); BILIRUBIN,TOTAL 1.1 MG/DL (0.2-1.0); BLOOD UREA NITROGEN 11 MG/DL (7-18); C REACTIVE PROTEIN QUANTITATIV 1.88 MG/DL (0.00-0.30); CALCIUM LEVEL 8.3 MG/DL (8.5-10.1); CARBON DIOXIDE LEVEL 22 MEQ/L (21-32); CHLORIDE LEVEL 107 MEQ/L (98-107); CK-MB VALUE MASS 11.5 NG/ML (<3.6); CPK CREATINE PHOSPHOKINASE 3084 U/L (39-308); CREATININE FOR GFR 1.36 MG/DL (0.70-1.30); FREE THYROXINE INDEX 3.5 % (1.4-3.8); GLOMERULAR FILTRATION RATE 58.8 (>56); GLUCOSE, FASTING 90 MG/DL (70-100); LDH LACTATE DEHYDROGENASE 445 U/L (87-241); LIPASE 862 U/L (73-393); MAGNESIUM LEVEL 2.1 MG/DL (1.8-2.4); MB/CK RELATIVE INDEX 0.37 (< OR =4); SODIUM LEVEL 141 MEQ/L (136-145); T UPTAKE 34 % (33-40); THYROXINE (T4) 10.3 UG/DL (4.5-12.0); TOTAL PROTEIN 6.9 GM/DL (6.4-8.2); TROPONIN I < 0.02 NG/ML (< 0.10)
--- NOTE | 2020-03-05 07:10 | REPVR ---
PROCEDURE INFORMATION: Exam: US Retroperitoneal Limited, Kidneys Exam date and time: 03/05/2020 6:20 AM Age: 49 years old Clinical indication: Abnormal findings; Abnormal lab test; Abnormal kidney function lab tests; Additional info: Renal failure TECHNIQUE: Imaging protocol: Real-time ultrasound of the retroperitoneum with image documentation. Examination was focused on the kidneys. COMPARISON: GALLBLADDER US 03/04/2020 4:07 PM FINDINGS: Right kidney: No stones. No hydronephrosis. Left kidney: No stones. No hydronephrosis. IMPRESSION: No acute findings. Electronically signed by: Clifford Beatty On 03/05/2020 07:09:58 AM
[2020-03-05] MEDS: SUCRALFATE 1 GM TAB PO SCH ×4 (07:30→20:08)
[2020-03-05] MEDS: KCL 10MEQ IN D5/0.45NS 1000ML 1,000 ML IV SCH ×3 (07:47→17:03)
[2020-03-05] MEDS ORDERED: ENOXAPARIN 30MG/0.3ML SYRINGE (J1650 PER 10MG) SC SCH (09:00)
[2020-03-05] MEDS ORDERED: POTASSIUM CHLORIDE 10 MEQ SR TABLET PO SCH (09:00)
[2020-03-05 09:02] LABS: FERRITIN 2842 NG/ML (26-388)
[2020-03-05] MEDS ORDERED: E-Z-HD 98% w/w 340GM SUSP BTL As Ordered ONE (09:39)
[2020-03-05] MEDS ORDERED: E-Z-PAQUE 96% w/w SUSP 176GM BTL As Ordered ONE (09:39)
[2020-03-05] MEDS ORDERED: E-Z-GAS II EFFERVESCENT PACKET (SODIUM BICARB./CITRIC ACID/SIMETHICONE) As Ordered ONE (09:39)
[2020-03-05] MEDS ORDERED: VITAMIN A & D OINTMENT 60GM TOP PRN (10:15)
[2020-03-05 10:30] LABS: ERYTHROCYTE SEDIMENTATION RATE 8 mm/hr (0-20)
--- NOTE | 2020-03-05 10:33 | REP ---
INDICATION: intractable vomiting COMPARISON: None. TECHNIQUE: Supine view of the abdomen and pelvis. FINDINGS: Bowel gas pattern is nonspecific and without obstruction or perforation. No organomegaly. No abnormal calcifications. Skeletal structures intact. IMPRESSION: Normal abdominal radiograph. <Electronically signed by Vasu Kaur > 03/05/20 1021
--- NOTE | 2020-03-05 11:55 | IPNPDOC ---
Date Seen The patient was seen on 03/05/20. Progress Note SUBJECTIVE: afebrile overnight. COVID-19 NEGATIVE 03/04/20, AND 03/05/20. c/o 3 episodes of loose diarrhea watery voluminous w/o dizziness, lightheadedness, n/v, but with epigastric discomfort unchanged from yesterday. "I feel better, but I'm still having diarrhea." denies loss of taste or smell. still on contact/droplet isolation due to elevated inflammatory markers suspicious for covid. on iv cipro flagyl empirically due to elevated procalcitonin and mostly abdominal complaints. GI panel negative. c/o rectal discomfort from skin irritation from persistent diarrhea. Cdiff NEGATIVE. OBJECTIVE PHYSICAL EXAMINATION: VITAL SIGNS: see below GENERAL APPEARANCE: Appears his stated age aaox 1 answering questions appropriately no distress no pallor or icterus HEENT: dry mm no cervical LAD, thyromegaly or JVD CARDIOVASCULAR: S1S2 sinus LUNGS: diminished no rales ABDOMEN: +slight epigastric tenderness no rebound guarding soft +bs x 4quadrants EXTREMITIES:-c/c/e LABORATORY DATA: See below. IMAGING: see below 03/04/20 CTABD/PELVIS CT Scan of the abdomen and pelvis was performed without intravenous contrast. Sagittal and coronal reconstruction images performed. FINDINGS: Lung bases: Unremarkable. Liver: There is diffuse low attenuation throughout the liver. The findings may represent significant fatty infiltration or hepatitis. The liver does not appear to be enlarged. Gallbladder: Dense bile is seen in the gallbladder. Spleen: Grossly unremarkable.. Adrenals: Normal. Pancreas: Grossly unremarkable.. Kidneys: No hydronephrosis or nephrolithiasis. Ureters demonstrate no dilatation or calculus. Small and large bowel: Grossly unremarkable.. Free fluid: None. Abdominal aorta: No aneurysm. Adenopathy: None. Appendix: Not inflamed. Osseous structures: Unremarkable. Pelvis: No mass. No bladder calculus seen. There is a small left inguinal hernia containing fat IMPRESSION: Diffuse low attenuation throughout the liver. This may indicate significant fatty infiltration or hepatitis. Dense bile is seen in the gallbladder. Small left inguinal hernia contains fat. <Electronically signed by Deven Peters > 03/04/20 1513 03/04/20 GALLBLADDER ULTRASOUND Real-time sonographic evaluation of right upper quadrant performed. FINDINGS: The gallbladder demonstrates intraluminal sludge, but no calculi, wall thickening or pericholecystic fluid. There is no intrahepatic or extrahepatic biliary dilatation, common bile duct measures 4 mm in maximum diameter. The liver demonstrates diffuse increased heterogeneous echotexture compatible with diffuse fibrofatty infiltration. No gross mass is seen. Pancreas cannot be seen due to overlying bowel gas. The right kidney demonstrates no hydronephrosis, with a normal size of 11.6 cm in length. No free fluid is seen. IMPRESSION: Gallbladder sludge but no stones, wall thickening, pericholecystic fluid or evidence of biliary dilatation. Diffuse fibrofatty infiltration of the liver. <Electronically signed by Deven Peters > 03/04/20 1624 03/04/[address] chest performed without the use of intravenous contrast. Sagittal and coronal reconstruction images are performed. FINDINGS: Lungs: Clear, no infiltrate or nodule. Mediastinum: No gross adenopathy. Betina: No gross adenopathy. Axilla: No gross adenopathy. Pleura: No effusion. Heart: Not enlarged. Thoracic aorta: No aneurysm. Upper abdominal structures: Grossly unremarkable. IMPRESSION: Unremarkable noncontrast CT chest. <Electronically signed by Deven Peters > 03/04/20 1505 MICROBIOLOGY: Please see below. ASSESSMENT/PLAN: 49 y/o male w pmh significant for peptic ulcer disease on chronic protonix and carafate, asthma, htn, hernia repair x 3, malignant hyperthermia postop presents to the ED with generalized weakness, dizziness, crawling into the bathroom with his roommate assisting him, due to severe dehydration from 3-5 nonprojectile nonbilious vomiting for the past few days, diarrhea 5x/day loose watery voluminous nonbloody nonmucusy with epigastric abdominal discomfort and fever 103 today. Pt says his symptoms nausea and vomiting has been going on since April last year 2-3days/week but abates w/o intervention, w/o weight loss, dysphagia, hematemesis, or chest pain. He denies drinking well water, any recent travel, or sorbitol use. He was referred to GI Dr. Vicente this month. He c/o having hallucinations thinking that his sister that he doesn't want to talk to was at the door knocking. He tried to stand up 2-3 times, but collapsed on the couch due to weakness and tremors. He c/o palpitations and started having sob with wheezing with generalized headache today.COVID -19 was negative in the ER. CT abd/pelvis: gallbladder sludge w/o biliary dilatation despite elevated bilirubin and lipase. He was found to have severe hypokalemia and acute renal failure. Hospitalist was asked to admit for acute kidney injury, hypokalemia, intractable n/v/diarrhea. Fever of unknown origin -most likely viral infection due to c/o headache, diarrhea, n/v. -blood cx neg pending final result -ua neg -ct chest/abd/pelvis unremarkable aside from gallbladder sludging -given empiric iv ceftriaxone in e 03/04/20 -on empiric iv cipro and flagyl started 03/04/20 due to elevated procalcitonin -negative COVID-19 x 2 (03/04/20 & 03/05/20) -serial inflammatory markers still elevated concerning for covid-19. Acute kidney injury -due to gi loss from vomiting and diarrhea -dizziness most likely from orthostasis. -s/p ivfluids -serial bmp show improved renal function -renally dosed meds -avoided nephrotoxins -strict i/o -if decreased urine output, bladderscan q6hrs to check pvr. Diarrhea -gi panel negative -covid 19 negative x 2 (03/04/20 and 03/05/20) -negative cdiff -lomotil qid -normal thyroid function tests -ct abd: unremarkable aside from gall bladder sludging Intractable n/v/diarrhea/epigatric pain/PUD -r/o gastrinoma, vipoma -GI panel negative -ct abd: unremarkable aside from gall bladder sludging -reglan qachs -ppi and carafate -unable to obtain ugiseries due to suspicion for covid-19 despite 2 negative testing -GI Dr. Vicente consulted if available 03/05/20. Abnormal LFT's -most likely due to h/o etoh abuse -admits recent acetaminophen use, but ast/alt not in the 1000's to suspect drug induced hepatitis -no biliary dilation to suspect obstruction from gall bladder sludging -awaiting hepatitis serology, jade, antimitochondrial ab, ceruloplasmin -elevated ferritin-inflammatory marker -denies etoh abuse now -covid -19 negative but will continue w serial inflammatory markers -decreasing bili to 1.1 03/05/20 from 1.8 on admission 03/14/20 Hypokalemia,resolved -due to diarrhea and vomiting -supplemented with serial mg and k monitoring hypocalcemia -due to gi loss -supplemented 03/05/20 w calcium gluconate 1amp iv. asthma -prn proventil disposition: awaiting downward trend of inflammatory markers, resolution of diarrhea, and stabilization of electrolyte abnormalities. 1-2 days. VS, I&O, 24H, Fishbone Vital Signs/I&O Vital Signs Date Time Temp Pulse Resp B/P (MAP) Pulse Ox O2 Delivery O2 Flow Rate FiO2 03/05/20 06:00 98.4 86 20 138/77 (97) 96 03/04/20 20:50 Room Air I&O- Last 24 Hours up to 6 AM 03/05/20 06:00 Intake Total 5570 ml Output Total 500 ml Balance 5070 ml Laboratory Data 24H LABS Laboratory Tests 2 03/04/20 12:47: Total Creatine Kinase 604H, Creatine Kinase MB 1.8, Creatine Kinase MB Relative Index 0.30, Troponin I < 0.02 03/04/20 12:48: Immature Granulocyte % (Auto) 1.8, Neutrophils (%) (Auto) 62.9, Lymphocytes (%) (Auto) 25.4, Monocytes (%) (Auto) 8.9H, Eosinophils (%) (Auto) 0.3, Basophils (%) (Auto) 0.7, Neutrophils # (Auto) 6.0, Lymphocytes # (Auto) 2.4, Monocytes # (Auto) 0.8, Eosinophils # (Auto) 0.0, Basophils # (Auto) 0.1, Nucleated Red Blood Cells % (auto) 0.3H, Immature Platelet Fraction 12.0H, Anion Gap 28H, Glomerular Filtration Rate 40.2L, Lactic Acid Level 22.4*H, Calcium Level 9.2, Total Bilirubin 1.8H, Direct Bilirubin 1.0H, Aspartate Amino Transf (AST/SGOT) 190H, Alanine Aminotransferase (ALT/SGPT) 65, Alkaline Phosphatase 70, Total Protein 7.6, Albumin 4.4, Albumin/Globulin Ratio 1.4, Lipase 869H, Thyroid Stimulating Hormone (TSH) 2.710 03/04/20 14:29: Lactic Acid Level 4.8*H 03/04/20 16:38: Troponin I < 0.02, Anion Gap 8, Glomerular Filtration Rate 54.2L, Calcium Level 8.4L, Erythrocyte Sedimentation Rate 6, Fibrinogen 287, D-Dimer, Quantitative 2554.01H, Magnesium Level 2.5H, Ferritin 3350H, Lactate Dehydrogenase 418H, C-Reactive Protein, Quantitative 0.30, Procalcitonin 3.94 03/04/20 17:49: Lactic Acid Followup at 4 Hours 3.6*H 03/04/20 22:16: Anion Gap 7L, Glomerular Filtration Rate 51.3L, Calcium Level 8.2L 03/05/20 04:53: Urine Color YELLOW, Urine Appearance CLEAR, Urine pH 6.0, Urine Specific [place] 1.004, Urine Protein NEGATIVE, Urine Glucose (UA) NEGATIVE, Urine Ketones NEGATIVE, Urine Blood NEGATIVE, Urine Nitrite NEGATIVE, Urine Bilirubin NEGATIVE , Urine Urobilinogen 0.2, Urine Leukocyte Esterase NEGATIVE, Urine WBC (Auto) 1, Urine RBC (Auto) 1, Urine Hyaline Casts (Auto) 0, Urine Bacteria (Auto) NEGATIVE, Urine Squamous Epithelial Cells 0, Urine Sperm (Auto) 03/05/20 05:26: Anion Gap 12, Glomerular Filtration Rate 58.8, Calcium Level 8.3L, Nucleated Red Blood Cells % (auto) 0.0, Differential Slide Review Report, Peripheral Blood Smear Path Consult PERIPHERAL SMEAR, Erythrocyte Sedimentation Rate 8, Fibrinogen 338, D-Dimer, Quantitative 2035.07H, Lactic Acid Level 1.5, Whole Blood Ionized Calcium 4.3L, Magnesium Level 2.1, Ferritin 2842H, Total Bilirubin 1.1H, Aspartate Amino Transf (AST/SGOT) 207H, Alanine Aminotransferase (ALT/SGPT) 76, Alkaline Phosphatase 62, Lactate Dehydrogenase 445H, Total Creatine Kinase 3084#H, Creatine Kinase MB 11.5H, Creatine Kinase MB Relative Index 0.37, Troponin I < 0.02, C-Reactive Protein, Quantitative 1.88H, Total Protein 6.9, Albumin 4.1, Albumin/Globulin Ratio 1.5, Lipase 862H, Thyroid Stimulating Hormone (TSH) 2.360, Free Thyroxine Index 3.5, Thyroxine (T4) 10.3, Triiodothyronine (T3) Uptake 34 03/05/20 10:28: Coronavirus (COVID-19)(PCR) NEGATIVE 03/05/20 10:46: Urine Myoglobin NEGATIVE CBC/BMP Laboratory Tests 03/04/20 12:48 03/04/20 16:38 03/04/20 22:16 03/05/20 05:26 Microbiology Microbiology 03/04/20 Gastrointestinal Tract Panel (PCR) - Final, Complete 03/04/20 Gram Stain - Final, Resulted 03/04/20 Sputum Culture, Resulted Pending 03/04/20 Respiratory Virus Panel (PCR) (STAN) - Final, Complete 03/04/20 Blood Culture, Received Pending 03/04/20 Blood Culture, Received Pending EVELYN ZAVALETA MD Mar 05, 2020 11:54
[2020-03-05] MEDS ORDERED: CALCIUM GLUCONATE 1,000 MG in D5W MINI-BAG PLUS 100 ML IV ONE (12:00)
[2020-03-05 12:19] LABS: FOLATE 15.8 NG/ML (>5.4); HEPATITIS A ANTIBODY IGM NEGATIVE (NEGATIVE); HEPATITIS B CORE ANTIBODY IGM NEGATIVE (NEGATIVE); HEPATITIS B SURFACE ANTIGEN NEGATIVE (NEGATIVE); HEPATITIS C VIRUS ABY INDEX < 0.0 INDEX (<0.8); VITAMIN B12 LEVEL 687 PG/ML (247-911)
[2020-03-05] MEDS: LOMOTIL 2.5MG/0.025MG TABLET PO SCH ×2 (12:33→17:03)
[2020-03-05] MEDS: LORATADINE 10 MG TAB PO SCH (12:34)
[2020-03-05] MEDS: METOCLOPRAMIDE INJ 10MG/2ML VIAL (J2765 PER 1) IV SCH ×3 (12:35→20:08)
[2020-03-05] MEDS: MULTIVITAMINS/MINERALS THERAP 1 TAB PO SCH (13:41)
[2020-03-05] MEDS: PANTOPRAZOLE 40MG TAB (PROTONIX) PO SCH (13:41)
[2020-03-05 14:00] VITALS: BP 154/94
[2020-03-05 17:28] LABS: INR 1.03; PLATELET COUNT, AUTOMATED 55 10^3/uL (150-450); PROTHROMBIN TIME 13.8 SECONDS (12.5-14.3)
[2020-03-05 17:29] LABS: PARTIAL THROMBOPLASTIN TIME 27.5 SECONDS (24.2-38.5)
[2020-03-05 17:32] LABS: D-DIMER QUANT 1297.65 ng/ml (<500)
[2020-03-05 17:48] LABS: ALT/SGPT 72 U/L (12-78); BILIRUBIN,TOTAL 0.7 MG/DL (0.2-1.0); BLOOD UREA NITROGEN 10 MG/DL (7-18); CARBON DIOXIDE LEVEL 25 MEQ/L (21-32); CHLORIDE LEVEL 106 MEQ/L (98-107); CREATININE FOR GFR 1.25 MG/DL (0.70-1.30); GLOMERULAR FILTRATION RATE > 60.0 (>56); GLUCOSE, FASTING 96 MG/DL (70-100); POTASSIUM SERUM 2.7 MEQ/L (3.5-5.1); SODIUM LEVEL 141 MEQ/L (136-145); TOTAL PROTEIN 6.7 GM/DL (6.4-8.2)
[2020-03-05 17:59] LABS: C REACTIVE PROTEIN QUANTITATIV 3.19 MG/DL (0.00-0.30); CK-MB VALUE MASS 6.5 NG/ML (<3.6); CPK CREATINE PHOSPHOKINASE 2832 U/L (39-308); FERRITIN 2110 NG/ML (26-388); LDH LACTATE DEHYDROGENASE 411 U/L (87-241); MB/CK RELATIVE INDEX 0.23 (< OR =4); TROPONIN I < 0.02 NG/ML (< 0.10)
[2020-03-05] MEDS ORDERED: KCL 40MEQ IN D5/0.45NS 1000ML 1,000 ML IV SCH (18:15)
[2020-03-05] MEDS: POTASSIUM CHLORIDE 10 MEQ SR TABLET PO SCH ×4 (18:56→21:41)
[2020-03-05 22:00] VITALS: BP 152/90
[2020-03-06] VITALS (9 sets, daily range): BP systolic 134–159; BP diastolic 82–100
[2020-03-06] MEDS: CIPROFLOXACIN 200 MG in IV 1 EA IV SCH ×2 (00:16→11:49)
[2020-03-06] MEDS: LOMOTIL 2.5MG/0.025MG TABLET PO SCH ×4 (00:17→17:53)
[2020-03-06 00:59] LABS: MAGNESIUM LEVEL 1.5 MG/DL (1.8-2.4); POTASSIUM SERUM 3.6 MEQ/L (3.5-5.1)
[2020-03-06] MEDS ORDERED: MAGNESIUM OXIDE 400MG TAB (MAG-OX) PO ONE (02:00)
[2020-03-06] MEDS: KCL 10MEQ/100ML SWI (KRUN) 10 MEQ in IV 1 EA IV SCH ×4 (02:52→15:42)
[2020-03-06] MEDS: MAG SULF 1GM/100ML (MAG RUN) 1 GM in IV 1 EA IV SCH ×3 (02:53→05:18)
[2020-03-06] MEDS: metroNIDAZOLE 500 MG in IV 1 EA IV SCH ×3 (05:19→20:26)
[2020-03-06] MEDS ORDERED: KCL 40MEQ IN D5/NS 1000ML 1,000 ML IV SCH (06:30)
[2020-03-06 06:51] LABS: HEMATOCRIT 30.8 % (42.0-52.0); HEMOGLOBIN 10.6 g/dl (13.5-17.5); MEAN CORPUSCULAR HEMOGLOBIN 32.8 pg (27.0-33.0); MEAN CORPUSCULAR HGB CONC 34.4 g/dl (32.0-36.5); MEAN CORPUSCULAR VOLUME 95.4 fl (80.0-96.0); RED BLOOD COUNT 3.23 10^6/uL (4.30-6.10); WHITE BLOOD COUNT 5.9 10^3/uL (4.0-10.0)
[2020-03-06 06:55] LABS: PLATELET COUNT, AUTOMATED 65 10^3/uL (150-450)
[2020-03-06 07:02] LABS: D-DIMER QUANT 1567.9 ng/ml (<500)
[2020-03-06 07:20] LABS: ERYTHROCYTE SEDIMENTATION RATE 14 mm/hr (0-20)
[2020-03-06] MEDS: METOCLOPRAMIDE INJ 10MG/2ML VIAL (J2765 PER 1) IV SCH ×4 (07:30→20:26)
[2020-03-06] MEDS: ALBUTEROL 90 MCG/ACT 8GM HFA INHALER INH SCH ×4 (07:30→20:00)
[2020-03-06] MEDS: SUCRALFATE 1 GM TAB PO SCH ×4 (07:30→20:26)
[2020-03-06 07:34] LABS: ALT/SGPT 73 U/L (12-78); BILIRUBIN,TOTAL 0.9 MG/DL (0.2-1.0); BLOOD UREA NITROGEN 7 MG/DL (7-18); C REACTIVE PROTEIN QUANTITATIV 2.63 MG/DL (0.00-0.30); CALCIUM LEVEL 8.3 MG/DL (8.5-10.1); CARBON DIOXIDE LEVEL 22 MEQ/L (21-32); CHLORIDE LEVEL 106 MEQ/L (98-107); CK-MB VALUE MASS 4.3 NG/ML (<3.6); CPK CREATINE PHOSPHOKINASE 2413 U/L (39-308); CREATININE FOR GFR 0.96 MG/DL (0.70-1.30); GLOMERULAR FILTRATION RATE > 60.0 (>56); GLUCOSE, FASTING 116 MG/DL (70-100); LDH LACTATE DEHYDROGENASE 411 U/L (87-241); LIPASE 391 U/L (73-393); MAGNESIUM LEVEL 2.4 MG/DL (1.8-2.4); MB/CK RELATIVE INDEX 0.18 (< OR =4); POTASSIUM SERUM 3.3 MEQ/L (3.5-5.1); SODIUM LEVEL 140 MEQ/L (136-145); TOTAL PROTEIN 6.4 GM/DL (6.4-8.2); TROPONIN I < 0.02 NG/ML (< 0.10)
[2020-03-06] MEDS: LORATADINE 10 MG TAB PO SCH (08:45)
[2020-03-06] MEDS: MULTIVITAMINS/MINERALS THERAP 1 TAB PO SCH (08:45)
[2020-03-06] MEDS: PANTOPRAZOLE 40MG TAB (PROTONIX) PO SCH (08:45)
[2020-03-06] MEDS ORDERED: E-Z-PAQUE 96% w/w SUSP 176GM BTL As Ordered ONE (10:17)
[2020-03-06] MEDS ORDERED: E-Z-GAS II EFFERVESCENT PACKET (SODIUM BICARB./CITRIC ACID/SIMETHICONE) As Ordered ONE (10:18)
[2020-03-06] MEDS ORDERED: E-Z-HD 98% w/w 340GM SUSP BTL As Ordered ONE (10:18)
--- NOTE | 2020-03-06 11:03 | REP ---
INDICATION: sob COMPARISON: 03/04/2020 TECHNIQUE: Portable AP view of the chest FINDINGS: The mediastinum and cardiac silhouette are stable and within normal limits for portable technique. The lung willis are clear without acute consolidation, effusion, or pneumothorax. Skeletal structures are intact. IMPRESSION: No acute cardiopulmonary process appreciated. <Electronically signed by Vasu Kaur > 03/06/20 [id number]
[2020-03-06 11:26] LABS: MAGNESIUM LEVEL 2.2 MG/DL (1.8-2.4); POTASSIUM SERUM 3.4 MEQ/L (3.5-5.1)
--- NOTE | 2020-03-06 11:48 | IPNPDOC ---
Date Seen The patient was seen on 03/06/20. Progress Note SUBJECTIVE: 7 diarrhea episodes yesterday with negative gi panel. negative coronavirus-19 x 2 denies fever/n/v/chills. still c/o epigastric discomfort. no brbpr, melena or black stools. c/o slight cough and sob. cxr: no acute cardiopulmonary process. OBJECTIVE PHYSICAL EXAMINATION: VITAL SIGNS: see below GENERAL APPEARANCE: no use of acc respiratory mm HEENT: dry mm no cervical LAD, thyromegaly or JVD CARDIOVASCULAR: S1S2 sinus LUNGS: diminished no rales ABDOMEN: +slight epigastric tenderness no rebound guarding soft +bs x 4quadrants EXTREMITIES:-c/c/e LABORATORY DATA: See below. IMAGING: see below 03/04/20 CTABD/PELVIS CT Scan of the abdomen and pelvis was performed without intravenous contrast. Sagittal and coronal reconstruction images performed. FINDINGS: Lung bases: Unremarkable. Liver: There is diffuse low attenuation throughout the liver. The findings may represent significant fatty infiltration or hepatitis. The liver does not appear to be enlarged. Gallbladder: Dense bile is seen in the gallbladder. Spleen: Grossly unremarkable.. Adrenals: Normal. Pancreas: Grossly unremarkable.. Kidneys: No hydronephrosis or nephrolithiasis. Ureters demonstrate no dila tation or calculus. Small and large bowel: Grossly unremarkable.. Free fluid: None. Abdominal aorta: No aneurysm. Adenopathy: None. Appendix: Not inflamed. Osseous structures: Unremarkable. Pelvis: No mass. No bladder calculus seen. There is a small left inguinal hernia containing fat IMPRESSION: Diffuse low attenuation throughout the liver. This may indicate significant fatty infiltration or hepatitis. Dense bile is seen in the gallbladder. Small left inguinal hernia contains fat. <Electronically signed by Deven Peters > 03/04/20 1513 03/04/20 GALLBLADDER ULTRASOUND Real-time sonographic evaluation of right upper quadrant performed. FINDINGS: The gallbladder demonstrates intraluminal sludge, but no calculi, wall thickening or pericholecystic fluid. There is no intrahepatic or extrahepatic biliary dilatation, common bile duct measures 4 mm in maximum diameter. The liver demonstrates diffuse increased heterogeneous echotexture compatible with diffuse fibrofatty infiltration. No gross mass is seen. Pancreas cannot be seen due to overlying bowel gas. The right kidney demonstrates no hydronephrosis, with a normal size of 11.6 cm in length. No free fluid is seen. IMPRESSION: Gallbladder sludge but no stones, wall thickening, pericholecystic fluid or evidence of biliary dilatation. Diffuse fibrofatty infiltration of the liver. <Electronically signed by Deven Peters > 03/04/20 4003 03/04/[address] chest performed without the use of intravenous contrast. Sagittal and coronal reconstruction images are performed. FINDINGS: Lungs: Clear, no infiltrate or nodule. Mediastinum: No gross adenopathy. Betina: No gross adenopathy. Axilla: No gross adenopathy. Pleura: No effusion. Heart: Not enlarged. Thoracic aorta: No aneurysm. Upper abdominal structures: Grossly unremarkable. IMPRESSION: Unremarkable noncontrast CT chest. <Electronically signed by Deven Peters > 03/04/20 1505 MICROBIOLOGY: Please see below. ASSESSMENT/PLAN: 49 y/o male w pmh significant for peptic ulcer disease on chronic protonix and carafate, asthma, htn, hernia repair x 3, malignant hyperthermia postop presents to the ED with generalized weakness, dizziness, crawling into the bathroom with his roommate assisting him, due to severe dehydration from 3-5 nonprojectile nonbilious vomiting for the past few days, diarrhea 5x/day loose watery voluminous nonbloody nonmucusy with epigastric abdominal discomfort and fever 103 today. Pt says his symptoms nausea and vomiting has been going on since April last year 2-3days/week but abates w/o intervention, w/o weight loss, dysphagia, hematemesis, or chest pain. He denies drinking well water, any recent travel, or sorbitol use. He was referred to GI Dr. Vicente this month. He c/o having hallucinations thinking that his sister that he doesn't want to talk to was at the door knocking. He tried to stand up 2-3 times, but collapsed on the couch due to weakness and tremors. He c/o palpitations and started having sob with wheezing with generalized headache today.COVID -19 was negative in the ER. CT abd/pelvis: gallbladder sludge w/o biliary dilatation despite elevated bilirubin and lipase. He was found to have severe hypokalemia and acute renal failure. Hospitalist was asked to admit for acute kidney injury, hypokalemia, intractable n/v/diarrhea. Fever of unknown origin Acute kidney injury, resolved Diarrhea Intractable n/v/diarrhea/epigatric pain/PUD Abnormal LFT's h/o ETOH liver disease h/o ETOH abuse Hypokalemia asthma PLAN: still on cipro and flagyl with resolution of fever. covid-19 NEGATIVE x 2. EGD to evaluate pt's intractable n/v. on ppi. npo. on ivfluids. ksupplemented intravenously until resumes oral diet. defer to GI for further recommendations. once resumes an oral diet and electrolytes stable x24hrs, ok to dc home. [facility]O Vital Signs Date Time Temp Pulse Resp B/P (MAP) Pulse Ox O2 Delivery O2 Flow Rate FiO2 03/06/20 06:00 98.0 95 19 149/82 (104) 96 Room Air I&O- Last 24 Hours up to 6 AM 03/06/20 06:00 Intake Total 4480 ml Output Total 300 ml Balance 4180 ml Laboratory Data 24H LABS Laboratory Tests 2 03/05/20 16:55: Ferritin 2110H, Lactate Dehydrogenase 411H, Total Creatine Kinase 2832H, Creatine Kinase MB 6.5H, Creatine Kinase MB Relative Index 0.23, Troponin I < 0.02, C-Reactive Protein, Quantitative 3.19H 03/05/20 16:56: Immature Platelet Fraction 5.6, Erythrocyte Sedimentation Rate 13, Prothrombin Time 13.8, Prothromb Time International Ratio 1.03, Activated Partial Thrombopl ast Time 27.5, Fibrinogen 328, D-Dimer, Quantitative 1297.65H, Anion Gap 10, Glomerular Filtration Rate > 60.0, Calcium Level 9.0, Total Bilirubin 0.7, Aspartate Amino Transf (AST/SGOT) 184H, Alanine Aminotransferase (ALT/SGPT) 72, Alkaline Phosphatase 63, Total Protein 6.7, Albumin 4.0, Albumin/Globulin Ratio 1.5 03/06/20 00:20: Whole Blood Ionized Calcium 4.5, Magnesium Level 1.5L 03/06/20 05:39: Lactate Dehydrogenase 411H, Total Creatine Kinase 2413H, Creatine Kinase MB 4.3H, Creatine Kinase MB Relative Index 0.18, Troponin I < 0.02, C-Reactive Prot ein, Quantitative 2.63H, Erythrocyte Sedimentation Rate 14, Fibrinogen 410, D- Dimer, Quantitative 1567.90H, Anion Gap 12, Glomerular Filtration Rate > 60.0, Calcium Level 8.3L, Total Bilirubin 0.9, Aspartate Amino Transf (AST/SGOT) 158H, Alanine Aminotransferase (ALT/SGPT) 73, Alkaline Phosphatase 59, Total Protein 6.4, Albumin 4.0, Albumin/Globulin Ratio 1.7, Magnesium Level 2.4, Nucleated Red Blood Cells % (auto) 0.0, Lipase 391 03/06/20 06:16: Whole Blood Ionized Calcium 4.5 03/06/20 10:54: Magnesium Level 2.2 CBC/BMP Laboratory Tests 03/05/20 16:56 03/06/20 00:20 03/06/20 05:39 03/06/20 10:54 Microbiology Microbiology 03/04/20 Gastrointestinal Tract Panel (PCR) - Final, Complete 03/04/20 Gram Stain - Final, Complete 03/04/20 Sputum Culture - Final, Complete 03/04/20 Respiratory Virus Panel (PCR) (STAN) - Final, Complete 03/04/20 Blood Culture - Preliminary, Resulted No growth after 24 hours . All specim... 03/04/20 Blood Culture - Preliminary, Resulted No growth after 24 hours . All specim... EVELYN ZAVALETA MD Mar 06, 2020 11:48
[2020-03-06 13:08] LABS: ANTINUCLEAR ANTIBODIES DIRECT Negative (Negative)
--- NOTE | 2020-03-06 14:07 | ROOR ---
Patient Name: Tani Villalta Procedure Date: 03/06/2020 1:32 PM Date of : 1970 Age: 49 Room: [facility] Gender: Male Note Status: Finalized Procedure: Upper GI endoscopy Indications: Persistent vomiting Providers: Jeremy Vicente MD Referring MD: 2. Inpatient 2. Inpatient, Wicho PINEDA MD Requesting Provider: Medicines: Monitored Anesthesia Care Complications: No immediate complications. Procedure: Pre-Anesthesia Assessment: - Prior to the procedure, a History and Physical was performed, and patient medications and allergies were reviewed. The patient is competent. The risks and benefits of the procedure and the sedation options and risks were discussed with the patient. All questions were answered and informed consent was obtained. Patient identification and proposed procedure were verified by the physician, the nurse and the anesthesiologist in the procedure room. Mental Status Examination: alert and oriented. Airway Examination: normal oropharyngeal airway and neck mobility. Respiratory Examination: clear to auscultation. CV Examination: normal. Prophylactic Antibiotics: The patient does not require prophylactic antibiotics. Prior Anticoagulants: The patient has taken no previous anticoagulant or antiplatelet agents. ASA Grade Assessment: III - A patient with severe systemic disease. After reviewing the risks and benefits, the patient was deemed in satisfactory condition to undergo the procedure. The anesthesia plan was to use monitored anesthesia care (MAC). Immediately prior to administration of medications, the patient was re-assessed for adequacy to receive sedatives. The heart rate, respiratory rate, oxygen saturations, blood pressure, adequacy of pulmonary ventilation, and response to care were monitored throughout the procedure. The physical status of the patient was re-assessed after the procedure. The Endoscope was introduced through the mouth, and advanced to the second part of duodenum. The upper GI endoscopy was accomplished without difficulty. The patient tolerated the procedure well. Findings: The examined esophagus was normal. Diffuse severe inflammation characterized by congestion (edema), erythema, friability and granularity was found in the gastric body and in the gastric antrum. Biopsies were taken with a cold forceps for histology. Biopsies were taken with a cold forceps for Helicobacter pylori testing. Verification of patient identification for the specimen was done by the physician and nurse using the patient's name, date and medical record number. Estimated blood loss was minimal. The duodenal bulb, second portion of the duodenum and third portion of the duodenum were normal. Biopsies for histology were taken with a cold forceps for evaluation of celiac disease. Impression: - Normal esophagus. - Gastritis. Biopsied. - Normal duodenal bulb, second portion of the duodenum and third portion of the duodenum. Biopsied. Recommendation: - Patient has a contact number available for emergencies. The signs and symptoms of potential delayed complications were discussed with the patient. Return to normal activities tomorrow. Written discharge instructions were provided to the patient. - High fiber diet. - Continue present medications. - Use Protonix (pantoprazole) 40 mg PO twice daily - to be taken in morning (1/2 hour before breakfast) and at bedtime ( atleast 3 hours after last meal) for 8 weeks. - Await pathology results. - If Biopsy shows H. pylori will need therapy with antibiotic course.. - Anti-acid reflux diet -- small meals, sit upright atleast 1 hour after meals, avoid fatty/ oily foods and avoid foods that cause reflux. - Return to primary care physician. Procedure Code(s): --- Professional --- 55259, Esophagogastroduodenoscopy, flexible, transoral; with biopsy, single or multiple Diagnosis Code(s): --- Professional --- K29.70, Gastritis, unspecified, without bleeding R11.15, Cyclical vomiting syndrome unrelated to migraine CPT copyright 2019 [employer]. All rights reserved. The codes documented in this report are preliminary and upon abrasive grinder review may be revised to meet current compliance requirements. Jeremy Vicente MD Jeremy Vicente MD 03/06/2020 2:07:10 PM Electronically signed by Jeremy Vicente MD Number of Addenda: 0 Note Initiated On: 03/06/2020 1:32 PM Estimated Blood Loss: Estimated blood loss was minimal.
--- NOTE | 2020-03-06 19:37 | CR.PDOC ---
General Date of Consultation: Mar 05, 2020 Referring Provider: EVELYN CROWELL MD Attending Physician: MARÍA ELENA WATKINS MD Consultation Primary physician/ hospitalist: -Dr. Crowell Reason for consult: -Recurrent/persistent nausea and vomiting. HPI: 49-year-old male patient with prior history of peptic ulcer disease ( by history), malignant hyperthermia, was admitted to [facility] for severe dehydration and acute renal failure. Patient reported having recurrent episodes of bilious vomiting and unable to tolerate oral diet, with intermittent episodes of loose watery stools for the past one year and prior to this admission, he had a fall where he reviewed his arm. Patient is unclear about the amount of alcohol use. He reports he quit alcohol for a while and recently after his mother's , he started drinking intermittently. But reports not drinking recently. At the time of examination, patient denies any abdominal pain. Pertinent negative GI symptoms: Patient denies fever, sick contacts, loss of appetite, early satiety or unintentional weight loss. No history of hematemesis, melena or hematochezia. Patient reports regular bowel movements. Review of Systems: GI: as stated above CVS: No chest pain, No palpitations, No leg swelling. 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 Hematology: No bruising, No gum bleeding, Musculoskeletal: No joint pain, ambulating well. Skin: Bruise on his arm from fall. : No hematuria, No burning sensation of the urine ENT: No ear discharge/ pain, No dysphagia. Eyes: No photophobia. Jaundice Home medications: reviewed. Antithrombotic agents: -None Medical h/o: As above. Surgical h/o: Prior abdominal hernia surgery. Social h/o: Alcohol: -As above, smoking: Denies, IVDA/ drugs:, Remote history of drug usage.. Family h/o of GI cancers - None Prior Endoscopies: None in [facility] Prior GI evaluations: -None in [facility] Exam: Vitals: reviewed General: Alert and oriented x 3, not in acute distress HEENT: NO pallor, no icterus. Normal oropharynx, NO cervical lymph nodes. Chest: symmetric with bilateral clear air entry, CVS: S1, S2 heard, normal, no murmurs . Abdomen: non-distended, no surgical scars, soft, non-tender, no palpable masses, normal bowel sounds heard. Rectal exam: Patient refused / Deferred at this time. Extremities: no pedal edema, pulses palpable. 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 Moves all extremities Skin: no rash. Labs: reviewed.. Imaging: reviewed. Impression: - Persistent nausea and vomiting with bouts of diarrhea in patient with possible alcohol use and prior h/o PUD -- DDx-- PUD vs gastric outlet obstruction vs H. pylori infection vs symptomatic biliary disease. - Mild abnormal liver panel with elevated AST - likely secondary to rhabdomyolysis. - Recurrent bouts of diarrhea, stool panel negative-- DDx- Malabsorptive diarrhea vs Inflammatory diarrhea. Recommendations: - Patient educated about the test results, possible differential diagnoses and All questions answered. - Monitor and correct electrolytes as needed. - Treatment for Rhabdomyolysis and TRACY as per [facility] team. - Will schedule for EGD as inpatient. - The procedure, indications, risks (bleeding, perforation, infection, hypotension, respiratory depression, allergy, need for endotracheal intubation, surgery, colostomy, cardiac arrest, even ), benefits, limitations (e.g., missing a lesion), and all other alternatives (including no intervention) were explained to the patient who understood and agreed for the procedure. - If recurrent diarrhea, please obtain fecal fat, elastase levels and fecal calprotectin levels. ( can be done outpatient if no active diarrhea). - As per discussion with patient he wanted to get the colonsocopy as outpatient after his nausea and vomiting improved. - Continue Pantoprazole 40 mg twice daily and sucralfate 4 tiems daily. - Follow operative note for further recommendations. Plan of care discussed with patient and primary team. Patient verbalized understanding and agreed with the plan. Vital Signs/I&O Vital Signs Date Time Temp Pulse Resp B/P (MAP) Pulse Ox O2 Delivery O2 Flow Rate FiO2 03/06/20 18:30 97.6 85 16 156/86 (109) 97 Room Air I&O- Last 24 Hours up to 6 AM 03/06/20 05:59 Intake Total 5280 ml Output Total 300 ml Balance 4980 ml Laboratory Data Labs 24H Laboratory Tests 2 03/06/20 00:20: Whole Blood Ionized Calcium 4.5, Magnesium Level 1.5L 03/06/20 05:39: Magnesium Level 2.4, Nucleated Red Blood Cells % (auto) 0.0, Erythrocyte Sedimentation Rate 14, Fibrinogen 410, D-Dimer, Quantitative 1567.90H, Anion Gap 12, Glomerular Filtration Rate > 60.0, Calcium Level 8.3L, Total Bilirubin 0.9, Aspartate Amino Transf (AST/SGOT) 158H, Alanine Aminotransferase (ALT/SGPT) 73, Alkaline Phosphatase 59, Lactate Dehydrogenase 411H, Total Creatine Kinase 241 3H, Creatine Kinase MB 4.3H, Creatine Kinase MB Relative Index 0.18, Troponin I < 0.02, C-Reactive Protein, Quantitative 2.63H, Total Protein 6.4, Albumin 4.0, Albumin/Globulin Ratio 1.7, Lipase 391 03/06/20 06:16: Whole Blood Ionized Calcium 4.5 03/06/20 10:54: Magnesium Level 2.2, Procalcitonin 3.48 CBC/BMP Laboratory Tests 03/06/20 00:20 03/06/20 05:39 03/06/20 10:54 Microbiology Microbiology 03/04/20 Gastrointestinal Tract Panel (PCR) - Final, Complete 03/04/20 Gram Stain - Final, Complete 03/04/20 Sputum Culture - Final, Complete 03/04/20 Respiratory Virus Panel (PCR) (STAN) - Final, Complete 03/04/20 Blood Culture - Preliminary, Resulted No Growth after 48 hours. All Specime... 03/04/20 Blood Culture - Preliminary, Resulted No Growth after 48 hours. All Specime... Allergies Coded Allergies: latex (Verified Allergy, Mild, 03/04/20) desflurane (Verified Adverse Reaction, Severe, GENERAL ANESTHESIA- MALIGNANT HYPERTHERMIA, 03/04/20) Home Medications Scheduled Calcium Carbonate (Calcium) 600 Mg Tablet, 600 MG PO BID, (Reported) Loratadine (Claritin) 10 Mg Tablet, 10 MG PO DAILY, (Reported) Multivitamins (Thera M Plus Tablet) 1 Each Tablet, 1 TAB PO DAILY, (Reported) Pantoprazole Sodium (Pantoprazole Sodium) 40 Mg Tablet.dr, 40 MG PO DAILY, (Reported) Potassium Gluconate (Potassium) 99 Mg Tablet, 595 MG PO BID, (Reported) Sucralfate (Sucralfate) 1 Gm Tablet, 1 GM PO ACHS, (Reported) Scheduled PRN Hydroxyzine HCl (Hydroxyzine HCl) 50 Mg Tablet, 50 MG PO QHS PRN for SLEEP, (Reported) Ondansetron (Ondansetron Odt) 4 Mg Tab.rapdis, 4 MG PO QID PRN for NAUSEA OR VOMITING, (Reported) MARÍA ELENA WATKINS MD Mar 06, 2020 19:37
[2020-03-07] MEDS: LOMOTIL 2.5MG/0.025MG TABLET PO SCH ×3 (00:11→11:28)
[2020-03-07] MEDS: CIPROFLOXACIN 200 MG in IV 1 EA IV SCH ×2 (00:11→12:00)
[2020-03-07 02:00] VITALS: BP 147/90
[2020-03-07] MEDS: metroNIDAZOLE 500 MG in IV 1 EA IV SCH ×2 (05:07→12:00)
[2020-03-07 05:58] LABS: HEMATOCRIT 30.9 % (42.0-52.0); HEMOGLOBIN 10.5 g/dl (13.5-17.5); MEAN CORPUSCULAR HEMOGLOBIN 33.1 pg (27.0-33.0); MEAN CORPUSCULAR VOLUME 97.5 fl (80.0-96.0); RED BLOOD COUNT 3.17 10^6/uL (4.30-6.10); WHITE BLOOD COUNT 4.8 10^3/uL (4.0-10.0)
[2020-03-07 06:00] VITALS: BP 151/92
[2020-03-07 06:05] LABS: PLATELET COUNT, AUTOMATED 85 10^3/uL (150-450)
[2020-03-07 06:11] LABS: D-DIMER QUANT 1764.48 ng/ml (<500)
[2020-03-07 06:29] LABS: ERYTHROCYTE SEDIMENTATION RATE 14 mm/hr (0-20)
[2020-03-07 06:49] LABS: ALBUMIN 3.6 GM/DL (3.2-5.2); ALT/SGPT 66 U/L (12-78); BILIRUBIN,TOTAL 0.9 MG/DL (0.2-1.0); BLOOD UREA NITROGEN 6 MG/DL (7-18); C REACTIVE PROTEIN QUANTITATIV 1.99 MG/DL (0.00-0.30); CALCIUM LEVEL 8.4 MG/DL (8.5-10.1); CARBON DIOXIDE LEVEL 27 MEQ/L (21-32); CHLORIDE LEVEL 107 MEQ/L (98-107); CK-MB VALUE MASS 1.3 NG/ML (<3.6); CPK CREATINE PHOSPHOKINASE 1530 U/L (39-308); CREATININE FOR GFR 0.88 MG/DL (0.70-1.30); GLOMERULAR FILTRATION RATE > 60.0 (>56); GLUCOSE, FASTING 102 MG/DL (70-100); LDH LACTATE DEHYDROGENASE 347 U/L (87-241); LIPASE 336 U/L (73-393); MAGNESIUM LEVEL 1.7 MG/DL (1.8-2.4); MB/CK RELATIVE INDEX 0.08 (< OR =4); POTASSIUM SERUM 3.4 MEQ/L (3.5-5.1); SODIUM LEVEL 140 MEQ/L (136-145); TOTAL PROTEIN 6.1 GM/DL (6.4-8.2); TROPONIN I < 0.02 NG/ML (< 0.10)
[2020-03-07] MEDS: ALBUTEROL 90 MCG/ACT 8GM HFA INHALER INH SCH ×3 (07:45→16:00)
[2020-03-07] MEDS: LORATADINE 10 MG TAB PO SCH (08:26)
[2020-03-07] MEDS: PANTOPRAZOLE 40MG TAB (PROTONIX) PO SCH (08:26)
[2020-03-07] MEDS: SUCRALFATE 1 GM TAB PO SCH ×2 (08:26→11:28)
[2020-03-07] MEDS: MULTIVITAMINS/MINERALS THERAP 1 TAB PO SCH (08:27)
[2020-03-07] MEDS ORDERED: PROTPAK PO (08:57)
[2020-03-07] MEDS ORDERED: CIPR-249 PO (08:57)
[2020-03-07] MEDS ORDERED: FLAG500T PO (08:57)
[2020-03-07] MEDS ORDERED: POTA1TAB14 PO (08:59)
[2020-03-07] MEDS: METOCLOPRAMIDE INJ 10MG/2ML VIAL (J2765 PER 1) IV SCH (09:01)
[2020-03-07] MEDS: POTASSIUM CHLORIDE 10 MEQ SR TABLET PO SCH ×3 (09:34→11:26)
[2020-03-07] MEDS: MAG SULF 1GM/100ML (MAG RUN) 1 GM in IV 1 EA IV SCH ×2 (09:34→11:26)
[2020-03-07 10:00] VITALS: BP 149/92
--- NOTE | 2020-03-07 11:23 | DS.PDOC ---
Discharge Summary General Date of Admission Mar 04, 2020 at 15:51 Date of Discharge 03/07/20 Discharge Summary DISCHARGE DIAGNOSES: Fever of unknown origin-covid negative x 2 Acute kidney injury, resolved Diarrhea Gastritis on EGD Abnormal LFT's h/o ETOH liver disease h/o ETOH abuse Hypokalemia rule out Primary hyperaldosteronism Hypomagnesemia Hypertension asthma DISCHARGE MEDICATIONS: SEE BELOW DISCHARGE INSTRUCTIONS: DR CROOKS 1WK, PCP WITHIN 5 DAYS, PCP TO REFER TO MANAGER PULMONARY FOR EVALUATION OF HYPOKALEMIA TO RULE OUT PRIMARY HYPERALDOSTERONISM. REPEAT SERUM POTASSIUM AND MAGNESIUM CHECK ON 03/13/20 FOR PCP TO ADDRESS. - High fiber diet. - Continue present medications. - Use Protonix (pantoprazole) 40 mg PO twice daily - to be taken in morning (1/2 hour before breakfast) and at bedtime ( atleast 3 hours after last meal) for 8 weeks. - Await pathology results. - If Biopsy shows H. pylori will need therapy with antibiotic course.. - Anti-acid reflux diet -- small meals, sit upright atleast 1 hour after meals, avoid fatty/ oily foods and avoid foods that cause reflux. - Return to primary care physician. 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 Pt says his symptoms nausea and vomiting has been going on since April last year 2-3days/week but abates w/o intervention, w/o weight loss, dysphagia, hematemesis, or chest pain. He denies drinking well water, any recent travel, or sorbitol use. He was referred to GI Dr. Crooks this month. He c/o having hallucinations thinking that his sister that he doesn't want to talk to was at the door knocking. He tried to stand up 2-3 times, but collapsed on the couch due to weakness and tremors. He c/o palpitations and started having sob with wheezing with generalized headache today.COVID -19 was negative in the ER. CT abd/pelvis: gallbladder sludge w/o biliary dilatation despite elevated bilirubin and lipase. He was found to have severe hypokalemia and acute renal failure. Hospitalist was asked to admit for acute kidney injury, hypokalemia, intractable n/v/diarrhea. Pt was given ivfluids, iv mg, iv kcl runs, and antiemetics and empiric cipro flagyl with resolution of fever. GI panel and covid -19 testing negative x 2. Pt was started on lomotil and had normal formed bm, and continued on carafate and bid protonix. ct chest negative for infiltrates. ct abd pelvis gallbladder sludging. EGD by Dr. crooks-gastritis with recommendations for high fiber diet, ppi bid, and outpt fu to discuss path results. DISCHARGE PHYSICAL EXAMINATION: VITAL SIGNS: see below GENERAL APPEARANCE: no use of acc respiratory mm HEENT: dry mm no cervical LAD, thyromegaly or JVD CARDIOVASCULAR: S1S2 sinus LUNGS: diminished no rales ABDOMEN: +slight epigastric tenderness no rebound guarding soft +bs x 4quadrants EXTREMITIES:-c/c/e DISCHARGE LABORATORY DATA: See below. IMAGING: see below 03/04/20 CTABD/PELVIS CT Scan of the abdomen and pelvis was performed without intravenous contrast. Sagittal and coronal reconstruction images performed. FINDINGS: Lung bases: Unremarkable. Liver: There is diffuse low attenuation throughout the liver. The findings may represent significant fatty infiltration or hepatitis. The liver does not appear to be enlarged. Gallbladder: Dense bile is seen in the gallbladder. Spleen: Grossly unremarkable.. Adrenals: Normal. Pancreas: Grossly unremarkable.. Kidneys: No hydronephrosis or nephrolithiasis. Ureters demonstrate no dilatation or calculus. Small and large bowel: Grossly unremarkable.. Free fluid: None. Abdominal aorta: No aneurysm. Adenopathy: None. Appendix: Not inflamed. Osseous structures: Unremarkable. Pelvis: No mass. No bladder calculus seen. There is a small left inguinal hernia containing fat IMPRESSION: Diffuse low attenuation throughout the liver. This may indicate significant fatty infiltration or hepatitis. Dense bile is seen in the gallbladder. Small left inguinal hernia contains fat. <Electronically signed by Deven Peters > 03/04/20 1513 03/04/20 GALLBLADDER ULTRASOUND Real-time sonographic evaluation of right upper quadrant performed. FINDINGS: The gallbladder demonstrates intraluminal sludge, but no calculi, wall thickening or pericholecystic fluid. There is no intrahepatic or extrahepatic biliary dilatation, common bile duct measures 4 mm in maximum diameter. The liver demonstrates diffuse increased heterogeneous echotexture compatible with diffuse fibrofatty infiltration. No gross mass is seen. Pancreas cannot be seen due to overlying bowel gas. The right kidney demonstrates no hydronephrosis, with a normal size of 11.6 cm in length. No free fluid is seen. IMPRESSION: Gallbladder sludge but no stones, wall thickening, pericholecystic fluid or evidence of biliary dilatation. Diffuse fibrofatty infiltration of the liver. <Electronically signed by Deven Peters > 03/04/20 1624 03/04/[address] chest performed without the use of intravenous contrast. Sagittal and coronal reconstruction images are performed. FINDINGS: Lungs: Clear, no infiltrate or nodule. Mediastinum: No gross adenopathy. Betina: No gross adenopathy. Axilla: No gross adenopathy. Pleura: No effusion. Heart: Not enlarged. Thoracic aorta: No aneurysm. Upper abdominal structures: Grossly unremarkable. IMPRESSION: Unremarkable noncontrast CT chest. <Electronically signed by Deven Peters > 03/04/20 1505 MICROBIOLOGY: Please see below. PROCEDURES: 03/06/20 EGD-DR CROOKS Findings: The examined esophagus was normal. Diffuse severe inflammation characterized by congestion (edema), erythema, friability and granularity was found in the gastric body and in the gastric antrum. Biopsies were taken with a cold forceps for histology. Biopsies were taken with a cold forceps for Helicobacter pylori testing. Verification of patient identification for the specimen was done by the physician and nurse using the patient's name, date and medical record number. Estimated blood loss was minimal. The duodenal bulb, second portion of the duodenum and third portion of the duodenum were normal. Biopsies for histology were taken with a cold forceps for evaluation of celiac disease. Impression: - Normal esophagus. - Gastritis. Biopsied. - Normal duodenal bulb, second portion of the duodenum and third portion of the duodenum. Biopsied. Recommendation: - Patient has a contact number available for emergencies. The signs and symptoms of potential delayed complications were discussed with the patient. Return to normal activities tomorrow. Written discharge instructions were provided to the patient. - High fiber diet. - Continue present medications. - Use Protonix (pantoprazole) 40 mg PO twice daily - to be taken in morning (1/2 hour before breakfast) and at bedtime ( atleast 3 hours after last meal) for 8 weeks. - Await pathology results. - If Biopsy shows H. pylori will need therapy with antibiotic course.. - Anti-acid reflux diet -- small meals, sit upright atleast 1 hour after meals, avoid fatty/ oily foods and avoid foods that cause reflux. - Return to primary care physician. TIME SPENT ON DISCHARGE: 30 MIN Vital Signs/I&Os Vital Signs Date Time Temp Pulse Resp B/P (MAP) Pulse Ox O2 Delivery O2 Flow Rate FiO2 03/07/20 06:00 97.5 80 17 151/92 (111) 98 Room Air I&O- Last 24 Hours up to 6 AM 03/07/20 06:00 Intake Total 1360 ml Output Total 0 ml Balance 1360 ml Laboratory Data Labs 24H Laboratory Tests 2 03/07/20 05:37: Nucleated Red Blood Cells % (auto) 0.0, Immature Platelet Fraction 4.3, Erythrocyte Sedimentation Rate 14, Fibrinogen 466H, D-Dimer, Quantitative 1764.48H, Anion Gap 6L, Glomerular Filtration Rate > 60.0, Calcium Level 8.4L, Magnesium Level 1.7L, Total Bilirubin 0.9, Aspartate Amino Transf (AST/SGOT) 103H, Alanine Aminotransferase (ALT/SGPT) 66, Alkaline Phosphatase 50, Lactate Dehydrogenase 347H, Total Creatine Kinase 1530H, Creatine Kinase MB 1.3, Creatine Kinase MB Relative Index 0.08, Troponin I < 0.02, C-Reactive Protein, Quantitative 1.99H, Total Protein 6.1L, Albumin 3.6, Albumin/Globulin Ratio 1.4, Lipase 336 CBC/BMP Laboratory Tests 03/07/20 05:37 Microbiology Microbiology 03/04/20 Gastrointestinal Tract Panel (PCR) - Final, Complete 03/04/20 Gram Stain - Final, Complete 03/04/20 Sputum Culture - Final, Complete 03/04/20 Respiratory Virus Panel (PCR) (STAN) - Final, Complete 03/04/20 Blood Culture - Preliminary, Resulted No Growth after 48 hours. All Specime... 03/04/20 Blood Culture - Preliminary, Resulted No Growth after 48 hours. All Specime... Discharge Medications Scheduled Calcium Carbonate (Calcium) 600 Mg Tablet, 600 MG PO BID, (Reported) Ciprofloxacin HCl (Cipro) 500 Mg Tablet, 500 MG PO BID Loratadine (Claritin) 10 Mg Tablet, 10 MG PO DAILY, (Reported) Metronidazole (Flagyl) 500 Mg Tablet, 500 MG PO Q8H FOR 10 DAYS Multivitamins (Thera M Plus Tablet) 1 Each Tablet, 1 TAB PO DAILY, (Reported) Pantoprazole Sodium (Protonix) 40 Mg Granpkt.dr, 40 MG PO BID Potassium Chloride (Potassium Chloride) 20 Meq Tablet.er, 40 MEQ PO BID Sucralfate (Sucralfate) 1 Gm Tablet, 1 GM PO ACHS, (Reported) Scheduled PRN Hydroxyzine HCl (Hydroxyzine HCl) 50 Mg Tablet, 50 MG PO QHS PRN for SLEEP, (Reported) Ondansetron (Ondansetron Odt) 4 Mg Tab.rapdis, 4 MG PO QID PRN for NAUSEA OR V OMITING, (Reported) Allergies Coded Allergies: latex (Verified Allergy, Mild, 03/04/20) desflurane (Verified Adverse Reaction, Severe, GENERAL ANESTHESIA- MALIGNANT HYPERTHERMIA, 03/04/20) EVELYN ZAVALETA MD Mar 07, 2020 11:23
[2020-03-07] MEDS ORDERED: METOCLOPRAMIDE 5 MG TAB PO SCH (12:00)
[2020-03-07 13:15] VITALS: BP 154/98
[2020-03-07 16:16] LABS: MAGNESIUM LEVEL 2.2 MG/DL (1.8-2.4); POTASSIUM SERUM 3.9 MEQ/L (3.5-5.1)
[2020-03-11 15:09] LABS: Chitobioside Carbohydrat (ACCA 25 units (0-90); Laminaribioside Carbohyd (ALCA 4 units (0-60); Mannobioside Carbohydrat (AMCA 14 units (0-100); Saccharomyces cerevisiae IgG A 11 units (0-50)
== END 2020-03-07 16:52 | disposition home or self-care (01) | DRG 241 ==
LOC: M ED 12:25 → M ED INP 15:51 → M MSPAV 20:54
PROVIDERS: ADMIT General Practice; ATTEND General Practice
PROC: 0DD68ZX Extraction of Stomach, Via Natural or Artificial Opening Endoscopic, Diagnostic (ICD-10-PCS; principal; 2020-03-06 14:30)
DX: K29.70 Gastritis, unspecified, without bleeding (principal); D69.6 Thrombocytopenia, unspecified; N17.9 Acute kidney failure, unspecified; E83.42 Hypomagnesemia; E83.51 Hypocalcemia; E86.0 Dehydration; R50.9 Fever, unspecified; R19.7 Diarrhea, unspecified; I10 Essential (primary) hypertension; J45.909 Unspecified asthma, uncomplicated; F10.10 Alcohol abuse, uncomplicated; E87.6 Hypokalemia; Z79.899 Other long term (current) drug therapy; Z91.040 Latex allergy status; Z88.8 Allergy status to other drugs, medicaments and biological substances; R11.15 Cyclical vomiting syndrome unrelated to migraine

== ENCOUNTER → 2020-03-13 | Outpatient (REF) | payer OTHER ==
[~2020-03-13] MED LIST changes: +CALC600T61 PO; +CIPR-249 PO; +CLAR10TA7 PO; +FLAG500T PO; +HM P99TA PO; +HYDR50TA70 PO; +PANT40TA29 PO; +PROTPAK PO; +SUCR1TAB56 PO; +VITMTA PO
[2020-03-13 17:31] LABS: ALBUMIN 4.4 GM/DL (3.2-5.2); ALT/SGPT 67 U/L (12-78); BILIRUBIN,TOTAL 0.4 MG/DL (0.2-1.0); BLOOD UREA NITROGEN 9 MG/DL (7-18); CALCIUM LEVEL 10.6 MG/DL (8.5-10.1); CARBON DIOXIDE LEVEL 27 MEQ/L (21-32); CHLORIDE LEVEL 102 MEQ/L (98-107); CREATININE FOR GFR 1.06 MG/DL (0.70-1.30); GLOMERULAR FILTRATION RATE > 60.0 (>56); GLUCOSE, FASTING 126 MG/DL (70-100); POTASSIUM SERUM 4.8 MEQ/L (3.5-5.1); SODIUM LEVEL 140 MEQ/L (136-145); TOTAL PROTEIN 7.3 GM/DL (6.4-8.2)
== END ==
LOC: M LAB REF 16:18
PROVIDERS: ATTEND Physician Assistant
DX: E87.6 Hypokalemia (principal)

== ENCOUNTER → 2020-03-17 | Outpatient (REF) | payer OTHER | LOC: M LAB REF 18:15 | PROVIDERS: ATTEND Physician Assistant | DX: E87.6 Hypokalemia (principal); E83.42 Hypomagnesemia ==

== ENCOUNTER → 2020-05-08 | Outpatient (CLI) | payer OTHER ==
[~2020-05-08] MED LIST changes: +POTA20TA6
[2020-05-08 13:57] LABS: BASO # 0.1 10^3/uL (0.0-0.2); BASO % 1.1 % (0.0-1.0); EOS # 0.1 10^3/uL (0.0-0.5); EOS % 1.3 % (0.0-3.0); HEMATOCRIT 42.6 % (42.0-52.0); HEMOGLOBIN 15.2 g/dl (13.5-17.5); LYMPH # 2.6 10^3/uL (1.5-5.0); LYMPH % 48.1 % (24.0-44.0); MEAN CORPUSCULAR HEMOGLOBIN 33.9 pg (27.0-33.0); MEAN CORPUSCULAR HGB CONC 35.7 g/dl (32.0-36.5); MEAN CORPUSCULAR VOLUME 94.9 fl (80.0-96.0); MONO # 0.7 10^3/uL (0.0-0.8); MONO % 13.4 % (2.0-8.0); NEUTROPHILS # 1.9 10^3/uL (1.5-8.5); NEUTROPHILS % 35.9 % (36.0-66.0); PLATELET COUNT, AUTOMATED 213 10^3/uL (150-450); PLTBLUE- EDTA FREE CALC 178 K/mm3 (172-450); RED BLOOD COUNT 4.49 10^6/uL (4.30-6.10); WHITE BLOOD COUNT 5.4 10^3/uL (4.0-10.0)
[2020-05-08 14:08] LABS: INR 0.88; PARTIAL THROMBOPLASTIN TIME 23.2 SECONDS (24.2-38.5); PROTHROMBIN TIME 12.1 SECONDS (12.5-14.3)
[2020-05-08 14:13] LABS: PLTBLUE- EDTA FREE MACHINE 162 10^3/uL (172-450)
[2020-05-08 14:33] LABS: ALBUMIN 4.5 GM/DL (3.2-5.2); BILIRUBIN,DIRECT 0.1 MG/DL (0.0-0.2); BILIRUBIN,TOTAL 0.2 MG/DL (0.2-1.0); TOTAL PROTEIN 7.8 GM/DL (6.4-8.2)
== END ==
LOC: M PLALAB 11:19
PROVIDERS: ATTEND Internal Medicine Gastroenterology
DX: R19.7 Diarrhea, unspecified (principal)

== ENCOUNTER 2020-09-15 19:07 | Inpatient (IN) | payer OTHER ==
[~2020-09-15] VITALS: Ht 167.6 cm; Wt 69.4 kg
[~2020-09-15 19:07] MED LIST changes: -HM P99TA PO; +POTA-151; -POTA20TA6; +POTA99TA14 PO
[2020-09-15 23:09] LABS: BASO # 0.1 10^3/uL (0.0-0.2); BASO % 0.9 % (0.0-1.0); EOS # 0.1 10^3/uL (0.0-0.5); EOS % 0.8 % (0.0-3.0); HEMATOCRIT 31.7 % (42.0-52.0); HEMOGLOBIN 11.3 g/dl (13.5-17.5); LYMPH # 1.2 10^3/uL (1.5-5.0); LYMPH % 9.5 % (24.0-44.0); MEAN CORPUSCULAR HEMOGLOBIN 35.6 pg (27.0-33.0); MEAN CORPUSCULAR HGB CONC 35.6 g/dl (32.0-36.5); MONO # 0.9 10^3/uL (0.0-0.8); MONO % 7.5 % (2.0-8.0); NEUTROPHILS % 80.7 % (36.0-66.0); PLATELET COUNT, AUTOMATED 151 10^3/uL (150-450); RED BLOOD COUNT 3.17 10^6/uL (4.30-6.10); WHITE BLOOD COUNT 12.4 10^3/uL (4.0-10.0)
[2020-09-15 23:24] LABS: INR 1.06; PROTHROMBIN TIME 14.2 SECONDS (12.7-14.5)
[2020-09-16 00:28] LABS: RSV AMPLIFICATION NEGATIVE (NEGATIVE)
[2020-09-16 00:42] LABS: ALBUMIN 2.1 GM/DL (3.2-5.2); ALT/SGPT 70 U/L (12-78); AMYLASE 81 U/L (25-115); BILIRUBIN,DIRECT 10.3 MG/DL (0.0-0.2); BILIRUBIN,TOTAL 12.5 MG/DL (0.2-1.0); BLOOD UREA NITROGEN 6 MG/DL (7-18); CALCIUM LEVEL 7.6 MG/DL (8.5-10.1); CARBON DIOXIDE LEVEL 29 MEQ/L (21-32); CHLORIDE LEVEL 92 MEQ/L (98-107); CK-MB VALUE MASS < 1.0 NG/ML (<3.6); CPK CREATINE PHOSPHOKINASE 73 U/L (39-308); CREATININE FOR GFR 0.56 MG/DL (0.70-1.30); ETHYL ALCOHOL (ETHANOL) < 0.003 % (0.000-0.010); GLOMERULAR FILTRATION RATE > 60.0 (>56); GLUCOSE, FASTING 83 MG/DL (70-100); HEPATITIS B CORE ANTIBODY IGM NEGATIVE (NEGATIVE); HEPATITIS B SURFACE ANTIGEN NEGATIVE (NEGATIVE); HEPATITIS C VIRUS ABY INDEX 0.1 INDEX (<0.8); LIPASE 729 U/L (73-393); MB/CK RELATIVE INDEX 1.37 (< OR =4); NT-PRO BNP 162 PG/ML (<125); POTASSIUM SERUM 2.6 MEQ/L (3.5-5.1); SODIUM LEVEL 130 MEQ/L (136-145); TOTAL PROTEIN 6.1 GM/DL (6.4-8.2); TROPONIN I < 0.02 NG/ML (< 0.10)
[2020-09-16] MEDS ORDERED: KCL 10MEQ/100ML SWI (KRUN) 10 MEQ in IV 1 EA IV ONE (00:45)
[2020-09-16] MEDS ORDERED: POTASSIUM CHLORIDE 10MEQ SR TABLET PO ONE ×2 (01:00→15:00)
[2020-09-16 01:20] LABS: MAGNESIUM LEVEL 1.4 MG/DL (1.8-2.4)
[2020-09-16] MEDS ORDERED: MAGNESIUM OXIDE 400MG TAB (MAG-OX) PO ONE (02:00)
[2020-09-16] MEDS ORDERED: MAG SULF 1GM/100ML (MAG RUN) 1 GM in IV 1 EA IV ONE (02:00)
[2020-09-16] MEDS ORDERED: HOME MED LIST COMPLETE! XX SCH (04:55)
[2020-09-16] MEDS ORDERED: POTA1TAB14 PO (04:55)
[2020-09-16] MEDS ORDERED: VITMTA PO (04:55)
[2020-09-16] MEDS ORDERED: LORA-674 PO (04:55)
[2020-09-16] MEDS ORDERED: ISOVUE-370 76% 100ML VIAL As Ordered ONE (05:44)
[2020-09-16 06:23] LABS: MONO REFLEX EBV COMP NEGATIVE (NEGATIVE)
[2020-09-16 06:38] LABS: FERRITIN 2741 NG/ML (26-388); IRON (FE) 128 UG/DL (65-175); PERCENT SATURATION 86.5 % (19.7-50.0); TOTAL IRON BINDING CAPACITY 148 UG/DL (250-450)
[2020-09-16 07:17] LABS: HEMATOCRIT 30.6 % (42.0-52.0); MEAN CORPUSCULAR HEMOGLOBIN 36.1 pg (27.0-33.0); MEAN CORPUSCULAR HGB CONC 35.9 g/dl (32.0-36.5); MEAN CORPUSCULAR VOLUME 100.3 fl (80.0-96.0); PLATELET COUNT, AUTOMATED 135 10^3/uL (150-450); RED BLOOD COUNT 3.05 10^6/uL (4.30-6.10); WHITE BLOOD COUNT 8.7 10^3/uL (4.0-10.0)
[2020-09-16 07:42] LABS: ALBUMIN 1.7 GM/DL (3.2-5.2); ALT/SGPT 56 U/L (12-78); BILIRUBIN,TOTAL 10.8 MG/DL (0.2-1.0); BLOOD UREA NITROGEN 4 MG/DL (7-18); CALCIUM LEVEL 7.3 MG/DL (8.5-10.1); CARBON DIOXIDE LEVEL 27 MEQ/L (21-32); CHLORIDE LEVEL 96 MEQ/L (98-107); CREATININE FOR GFR 0.44 MG/DL (0.70-1.30); GLOMERULAR FILTRATION RATE > 60.0 (>56); GLUCOSE, FASTING 76 MG/DL (70-100); MAGNESIUM LEVEL 1.8 MG/DL (1.8-2.4); SODIUM LEVEL 131 MEQ/L (136-145); TOTAL PROTEIN 5.2 GM/DL (6.4-8.2)
[2020-09-16 09:00] VITALS: BP 118/78
[2020-09-16] MEDS: FUROSEMIDE 20MG/2ML VIAL (J1940) IV SCH (09:06)
[2020-09-16] MEDS: POTASSIUM CHLORIDE 10MEQ SR TABLET PO SCH ×2 (09:06→21:35)
[2020-09-16 12:00] VITALS: BP 115/81
[2020-09-16] MEDS: HEPARIN SOD (PORCINE) 5000UNITS/ML 1ML VIAL/SYRINGE SC SCH ×2 (14:04→21:35)
[2020-09-16 14:36] VITALS: BP 130/83
[2020-09-16 20:00] VITALS: BP 122/78
[2020-09-16 22:34] LABS: MAGNESIUM LEVEL 1.8 MG/DL (1.8-2.4); POTASSIUM SERUM 3.3 MEQ/L (3.5-5.1)
[2020-09-17] VITALS: BP 101/63
[2020-09-17] MEDS: methocarbamoL 500 MG TAB PO PRN (01:37)
[2020-09-17 04:00] VITALS: BP 107/64
[2020-09-17] MEDS: HEPARIN SOD (PORCINE) 5000UNITS/ML 1ML VIAL/SYRINGE SC SCH ×3 (05:00→22:33)
[2020-09-17 05:52] LABS: HEMOGLOBIN 9.7 g/dl (13.5-17.5); MEAN CORPUSCULAR HEMOGLOBIN 35.8 pg (27.0-33.0); MEAN CORPUSCULAR HGB CONC 34.6 g/dl (32.0-36.5); MEAN CORPUSCULAR VOLUME 103.3 fl (80.0-96.0); PLATELET COUNT, AUTOMATED 126 10^3/uL (150-450); RED BLOOD COUNT 2.71 10^6/uL (4.30-6.10); WHITE BLOOD COUNT 9.2 10^3/uL (4.0-10.0)
[2020-09-17 06:15] LABS: ALBUMIN 1.6 GM/DL (3.2-5.2); ALT/SGPT 50 U/L (12-78); BILIRUBIN,TOTAL 9.6 MG/DL (0.2-1.0); BLOOD UREA NITROGEN 6 MG/DL (7-18); CALCIUM LEVEL 7.8 MG/DL (8.5-10.1); CARBON DIOXIDE LEVEL 28 MEQ/L (21-32); CHLORIDE LEVEL 100 MEQ/L (98-107); CREATININE FOR GFR 0.45 MG/DL (0.70-1.30); GLOMERULAR FILTRATION RATE > 60.0 (>56); GLUCOSE, FASTING 74 MG/DL (70-100); POTASSIUM SERUM 3.3 MEQ/L (3.5-5.1); SODIUM LEVEL 134 MEQ/L (136-145); TOTAL PROTEIN 5.4 GM/DL (6.4-8.2)
[2020-09-17 07:19] VITALS: BP 112/78
[2020-09-17] MEDS ORDERED: POTASSIUM CHLORIDE 10MEQ SR TABLET PO SCH ×2 (08:10→09:00)
[2020-09-17] MEDS ORDERED: LORazepam 2 MG TAB PO ONE (08:45)
[2020-09-17 09:24] LABS: LDH LACTATE DEHYDROGENASE 290 U/L (87-241)
[2020-09-17] MEDS: FUROSEMIDE 20MG/2ML VIAL (J1940) IV SCH (09:25)
[2020-09-17] MEDS: POTASSIUM CHLORIDE 10MEQ SR TABLET PO SCH ×2 (09:25→22:33)
[2020-09-17] MEDS ORDERED: SLF 3 ML SYR IV PRN (10:20)
[2020-09-17 11:41] VITALS: BP 109/72
[2020-09-17] MEDS: SLF 3 ML SYR IV SCH ×2 (14:00→22:32)
[2020-09-17] MEDS ORDERED: FUROSEMIDE injection 250 MG in D5W 225 ML IV ONE (15:20)
[2020-09-17] MEDS ORDERED: FUROSEMIDE 40MG/4ML VIAL (J1940) IV ONE (15:50)
[2020-09-17 16:00] VITALS: BP 119/80
[2020-09-17 17:08] LABS: EBV VIRAL CAPSID AG IgG 47.6 U/mL (0.0-17.9); EBV VIRAL CAPSID AG IgM <36.0 U/mL (0.0-35.9)
[2020-09-17 20:00] VITALS: BP 104/70
[2020-09-18] VITALS: BP 107/57
[2020-09-18 04:00] VITALS: BP 105/61
[2020-09-18 04:03] LABS: HEMATOCRIT 25.8 % (42.0-52.0); MEAN CORPUSCULAR HEMOGLOBIN 35.7 pg (27.0-33.0); MEAN CORPUSCULAR HGB CONC 34.9 g/dl (32.0-36.5); MEAN CORPUSCULAR VOLUME 102.4 fl (80.0-96.0); PLATELET COUNT, AUTOMATED 129 10^3/uL (150-450); RED BLOOD COUNT 2.52 10^6/uL (4.30-6.10); WHITE BLOOD COUNT 9.3 10^3/uL (4.0-10.0)
[2020-09-18] MEDS: methocarbamoL 500 MG TAB PO PRN (04:05)
[2020-09-18 04:24] LABS: ALBUMIN 1.5 GM/DL (3.2-5.2); ALT/SGPT 43 U/L (12-78); BILIRUBIN,TOTAL 8.3 MG/DL (0.2-1.0); BLOOD UREA NITROGEN 8 MG/DL (7-18); CALCIUM LEVEL 7.4 MG/DL (8.5-10.1); CARBON DIOXIDE LEVEL 26 MEQ/L (21-32); CHLORIDE LEVEL 100 MEQ/L (98-107); CREATININE FOR GFR 0.39 MG/DL (0.70-1.30); GLOMERULAR FILTRATION RATE > 60.0 (>56); GLUCOSE, FASTING 72 MG/DL (70-100); POTASSIUM SERUM 3.3 MEQ/L (3.5-5.1); SODIUM LEVEL 135 MEQ/L (136-145); TOTAL PROTEIN 4.7 GM/DL (6.4-8.2)
[2020-09-18] MEDS: HEPARIN SOD (PORCINE) 5000UNITS/ML 1ML VIAL/SYRINGE SC SCH (06:00)
[2020-09-18] MEDS: SLF 3 ML SYR IV SCH (06:04)
[2020-09-18] MEDS ORDERED: POTASSIUM CHLORIDE 10MEQ SR TABLET PO ONE (08:00)
[2020-09-18 08:10] VITALS: BP 102/63
[2020-09-18] MEDS: FUROSEMIDE 20MG/2ML VIAL (J1940) IV SCH (08:44)
[2020-09-18] MEDS: KCL 10MEQ/100ML SWI (KRUN) 10 MEQ in IV 1 EA IV SCH ×2 (08:51→10:36)
[2020-09-18] MEDS ORDERED: K-TA1TAB PO (09:32)
[2020-09-18] MEDS ORDERED: LASI40TA9 PO (09:32)
[2020-09-18 16:08] LABS: ANCA-ATYPICAL <1:20 titer (Neg:<1:20); ANTI-MITOCHONDRIAL ANTIBODY <20.0 Units (0.0-20.0); ANTINUCLEAR ANTIBODIES DIRECT Negative (Negative); CERULOPLASMIN 27.7 mg/dL (16.0-31.0); CYTOPLASMIC NEUTROP AB ANCA-C <1:20 titer (Neg:<1:20); LIVER-KIDNEY MICROSOMAL ABY <20.1 Units (0.0-20.0); PERINUCLEAR AB ANCA-P <1:20 titer (Neg:<1:20)
[2021-01-29] MEDS ORDERED: FOLI1TAB11 PO (08:08)
[2021-01-29] MEDS ORDERED: CLAR10CA3 PO (08:08)
[2021-01-29] MEDS ORDERED: B-1100TA2 PO (08:08)
[2021-01-29] MEDS ORDERED: LEVO25TA5 PO (08:08)
[2021-01-29] MEDS ORDERED: NEUR300C PO (08:08)
[2021-01-29] MEDS ORDERED: FURO20TA2 PO (08:08)
[2021-01-29] MEDS ORDERED: CENT1TAB PO (08:16)
[2021-01-29] MEDS ORDERED: PROAAER10 INH (08:28)
[2021-03-09] MEDS ORDERED: INCR1INH INH (08:47)
== END 2020-09-18 14:23 | disposition home or self-care (01) | DRG 58 ==
LOC: M ED 19:07 → M ED INP 19:08 → M PCU 09-16 14:30
PROVIDERS: ADMIT Family Medicine; ATTEND Family Medicine
DX: R25.2 Cramp and spasm (principal); E87.1 Hypo-osmolality and hyponatremia; K70.30 Alcoholic cirrhosis of liver without ascites; E83.42 Hypomagnesemia; K80.20 Calculus of gallbladder without cholecystitis without obstruction; E87.6 Hypokalemia; R74.01 Elevation of levels of liver transaminase levels; R60.1 Generalized edema; D53.9 Nutritional anemia, unspecified; F10.10 Alcohol abuse, uncomplicated; Z20.822 Contact with and (suspected) exposure to COVID-19; Z88.8 Allergy status to other drugs, medicaments and biological substances; Z91.040 Latex allergy status; K52.9 Noninfective gastroenteritis and colitis, unspecified; J45.909 Unspecified asthma, uncomplicated; R74.8 Abnormal levels of other serum enzymes; Z91.19 Patient's noncompliance with other medical treatment and regimen

== ENCOUNTER 2020-09-23 10:10 | Observation (INO) | payer OTHER ==
[~2020-09-23] VITALS: Ht 170.2 cm; Wt 73.6 kg
[~2020-09-23 10:10] MED LIST changes: +K-TA1TAB PO; +LASI40TA9 PO; +LORA-674 PO; -POTA-151; +POTA20TA6
[2020-09-23 12:19] LABS: BASO # 0.2 10^3/uL (0.0-0.2); BASO % 1.6 % (0.0-1.0); EOS # 0.1 10^3/uL (0.0-0.5); EOS % 1.4 % (0.0-3.0); HEMATOCRIT 33.3 % (42.0-52.0); HEMOGLOBIN 11.3 g/dl (13.5-17.5); LYMPH # 1.1 10^3/uL (1.5-5.0); LYMPH % 11.3 % (24.0-44.0); MEAN CORPUSCULAR HEMOGLOBIN 35.9 pg (27.0-33.0); MEAN CORPUSCULAR HGB CONC 33.9 g/dl (32.0-36.5); MEAN CORPUSCULAR VOLUME 105.7 fl (80.0-96.0); MONO # 1.1 10^3/uL (0.0-0.8); NEUTROPHILS # 7.4 10^3/uL (1.5-8.5); NEUTROPHILS % 73.6 % (36.0-66.0); PLATELET COUNT, AUTOMATED 226 10^3/uL (150-450); RED BLOOD COUNT 3.15 10^6/uL (4.30-6.10)
[2020-09-23 13:20] LABS: ALBUMIN 1.9 GM/DL (3.2-5.2); ALT/SGPT 45 U/L (12-78); BILIRUBIN,DIRECT 4.5 MG/DL (0.0-0.2); BILIRUBIN,TOTAL 6.6 MG/DL (0.2-1.0); BLOOD UREA NITROGEN 8 MG/DL (7-18); CALCIUM LEVEL 7.9 MG/DL (8.5-10.1); CARBON DIOXIDE LEVEL 20 MEQ/L (21-32); CHLORIDE LEVEL 104 MEQ/L (98-107); CREATININE FOR GFR 0.52 MG/DL (0.70-1.30); FREE T4 1.14 NG/DL (0.76-1.46); GLOMERULAR FILTRATION RATE > 60.0 (>56); GLUCOSE, FASTING 86 MG/DL (70-100); LIPASE 573 U/L (73-393); NT-PRO BNP 176 PG/ML (<125); POTASSIUM SERUM 4.8 MEQ/L (3.5-5.1); SODIUM LEVEL 131 MEQ/L (136-145); TOTAL PROTEIN 6.3 GM/DL (6.4-8.2)
--- NOTE | 2020-09-23 13:51 | REP ---
INDICATION: RUQ discomfort; jaundice. COMPARISON: 09/16/2020 TECHNIQUE: Real-time sonographic evaluation of the right upper quadrant FINDINGS: Once again, there is echogenic material seen in the gallbladder nearly filling the lumen but casting no acoustic shadows. There is mild gallbladder wall thickening but no pericholecystic edema. The common bile duct measures 5 mm. Once again, diffuse increased echoes are seen throughout the hepatic parenchyma with poor sonographic beam penetration. There is no evidence of intrahepatic ductal dilatation. The imaged portion of the pancreas and right kidney are again seen to be within normal limits. A mild amount of free fluid is seen in all 4 quadrants. IMPRESSION: 1. Echogenic material within the gallbladder as described above. Dense sludge versus possible mass. 2. There is free fluid. 3. There is diffuse fatty infiltration of the liver. Sign rib Accredited by the [employer] in General Ultrasound. <Electronically signed by Naga Gillette > 09/23/20 [id number]
[2020-09-23 14:01] LABS: INR 0.96; PROTHROMBIN TIME 13.2 SECONDS (12.7-14.5)
[2020-09-23 14:02] LABS: PARTIAL THROMBOPLASTIN TIME 28.9 SECONDS (25.9-37.0)
--- NOTE | 2020-09-23 14:53 | REP ---
INDICATION: SOB. COMPARISON: None. TECHNIQUE: AP portable FINDINGS: The lungs are clear. Heart not enlarged. No failure. No pleural effusion. No interval change. IMPRESSION: Negative chest x-ray. <Electronically signed by Lux Churchill > 09/23/20 [id number]
[2020-09-23] MEDS ORDERED: FURO40TA2 PO (15:40)
[2020-09-23] MEDS ORDERED: POTA1TAB14 PO (15:40)
[2020-09-23] MEDS ORDERED: HOME MED LIST COMPLETE! XX SCH (15:45)
[2020-09-23] MEDS ORDERED: FUROSEMIDE 40MG/4ML VIAL (J1940) IV ONE (16:20)
[2020-09-23] MEDS ORDERED: POTASSIUM CHLORIDE 10 MEQ SR TABLET PO ONE (16:25)
[2020-09-23 16:31] LABS: RSV AMPLIFICATION NEGATIVE (NEGATIVE)
[2020-09-23 20:00] VITALS: BP 137/87
[2020-09-24 06:00] VITALS: BP 116/70
[2020-09-24 06:15] LABS: HEMATOCRIT 31.5 % (42.0-52.0); HEMOGLOBIN 10.6 g/dl (13.5-17.5); MEAN CORPUSCULAR HEMOGLOBIN 35.9 pg (27.0-33.0); MEAN CORPUSCULAR HGB CONC 33.7 g/dl (32.0-36.5); MEAN CORPUSCULAR VOLUME 106.8 fl (80.0-96.0); PLATELET COUNT, AUTOMATED 226 10^3/uL (150-450); RED BLOOD COUNT 2.95 10^6/uL (4.30-6.10); WHITE BLOOD COUNT 8.7 10^3/uL (4.0-10.0)
[2020-09-24 06:46] LABS: ALBUMIN 1.7 GM/DL (3.2-5.2); ALT/SGPT 38 U/L (12-78); BILIRUBIN,TOTAL 6.1 MG/DL (0.2-1.0); BLOOD UREA NITROGEN 6 MG/DL (7-18); CALCIUM LEVEL 7.4 MG/DL (8.5-10.1); CARBON DIOXIDE LEVEL 23 MEQ/L (21-32); CHLORIDE LEVEL 105 MEQ/L (98-107); CREATININE FOR GFR 0.44 MG/DL (0.70-1.30); GLOMERULAR FILTRATION RATE > 60.0 (>56); GLUCOSE, FASTING 77 MG/DL (70-100); POTASSIUM SERUM 3.9 MEQ/L (3.5-5.1); SODIUM LEVEL 134 MEQ/L (136-145); TOTAL PROTEIN 4.9 GM/DL (6.4-8.2)
--- NOTE | 2020-09-24 06:52 | HPEPDOC ---
General Date of Admission 09/23/20 Date of Service: Sep 23, 2020 Chief Complaint The patient is a 50-year-old male admitted with a reason for visit of Jaundice. Source: Patient, RN/MD History of Present Illness 50-year-old male with history of alcoholic cirrhosis, ascites, portal hypertension, cholestatic jaundice who was recently admitted in our hospital from 09/15/2020 to 09/18/2020 for hypokalemia, cholestatic jaundice, decompensated cirrhosis, chronic diarrhea presents today and to the emergency room at the instruction of his primary care provider because PCP noted him to be jaundiced and noted him to have swelling of legs and ascites. Patient reported that he is jaundiced swelling of legs and swelling of the abdomen is not any worse from last week. He does report that he has noted a change in his bowel habits before he used to have chronic diarrhea for years but in the last couple weeks he is stool is more formed and sometimes he is constipated. He has not seen any blood in his stool. He reports he has been compliant with his dietary and fluid restrictions and in fact he is swelling in the legs are coming down slowly. Labs in the ED shows cholestatic jaundice with the total bilirubin of greater than 6 and with a direct of greater than 4 however these numbers are less than what it was last week. His electrolytes are okay his hemoglobin is stable. He was admitted for observation for decompensated liver cirrhosis Home Medications Scheduled Furosemide (Furosemide) 40 Mg Tablet, 40 MG PO QHS, (Reported) Multivitamins (Thera M Plus Tablet) 1 Each Tablet, 1 TAB PO DAILY, (Reported) Potassium Chloride (Potassium Chloride) 20 Meq Tablet.er, 40 MEQ PO DAILY, (Reported) Allergies Coded Allergies: latex (Verified Allergy, Mild, 04/03/20) desflurane (Verified Adverse Reaction, Severe, GENERAL ANESTHESIA- MALIGNANT HYPERTHERMIA, 04/03/20) Past Medical History Medical History Alcoholic Cirrhosis of liver, EGD in Feb 2020 no varices Ascites Cholestatic jaundice thrombocytopenia Portal hypertension chronic hypotension Hyponatremia Asthma peptic ulcer disease cholelithiasis and biliary sludge hernia repair x 3, malignant hyperthermia postop Family History Father: ETOH liver cirrhosis Mother: crohns sister: breast cancer Social History * Smoker: Denies Alcohol: Denies (h/o abuse before quit 6 years ago) A-FIB/CHADSVASC A-FIB History Current/History of A-Fib/PAF?: No Review of Systems Constitutional: Denies: Chills, Fever, Night Sweats Eyes: Denies: Pain, Vision change ENT: Denies: Head Aches, Ear Pain, Dysphagia Skin: Denies: Rash, Lesions, Breakdown Pulmonary: Denies: Dyspnea, Cough Cardiovascular: Denies: Chest Pain, Palpitations, Orthopnea, Paroxysmal Noc. Dyspnea, Lt Headedness Gastrointestinal: Reports: Constipation; Denies: Nausea, Vomiting, Abdominal Pain, Diarrhea Genitourinary: Denies: Dysuria, Frequency, Incontinence, Retention Hematologic: Denies: Bruising, Bleeding Excessively Musculoskeletal: Denies: Neck Pain, Back Pain, Joint Pain, Muscle Pain, Spasms Neurological: Denies: Weakness, Numbness, Change in speech, Confusion Psych: Reports: Mood Normal; Denies: Depression, Memory Issues Physical Examination General Exam: Positive: Alert, Cooperative, No Acute Distress Eye Exam: Positive: PERRLA, Conjunctiva & lids normal, Sclera icteric ENT Exam: Positive: Atraumatic, Mucous membr. moist/pink, Pharynx Normal Neck Exam: Positive: Supple; Negative: JVD, thyromegaly Chest Exam: Positive: Clear to auscultation, Normal air movement Heart Exam: Positive: Rate Normal, Regular Rhythm, Normal S1, Normal S2; Negative: Murmurs, Rubs Abdomen Exam: Positive: Normal bowel sounds, Soft, Other (Ascites present); Negative: Tenderness Extremity Exam: Positive: Edema (3+ edema bilaterally), Normal pulses; Negative: Clubbing, Cyanosis Skin Exam: Positive: Nl turgor and temperature; Negative: Breakdown, Lesion Neuro Exam: Positive: Normal Speech, Strength at 5/5 X4 ext, Normal Tone Psych Exam: Positive: Memory Intact, Oriented x 3 Vital Signs Vital Signs Date Time Temp Pulse Resp B/P (MAP) Pulse Ox O2 Delivery O2 Flow Rate FiO2 09/23/20 14:00 70 98/55 (69) 96 09/23/20 13:30 18 Room Air 09/23/20 10:43 99.6 Laboratory Data Labs 24H Laboratory Tests 2 09/23/20 12:02: Anion Gap 7L, Glomerular Filtration Rate > 60.0, Calcium Level 7.9L, Total Bilirubin 6.6H, Direct Bilirubin 4.5H, Aspartate Amino Transf (AST/SGOT) 141H, Alanine Aminotransferase (ALT/SGPT) 45, Alkaline Phosphatase 285H, BI-Yti-A-Type Natriuretic Peptide 176H, Total Protein 6.3L, Albumin 1.9L, Albumin/Globulin Ratio 0.4, Lipase 573H, Thyroid Stimulating Hormone (TSH) 5.230H, Free Thyroxine 1.14 09/23/20 12:03: Immature Granulocyte % (Auto) 1.1, Neutrophils (%) (Auto) 73.6H, Lymphocytes (%) (Auto) 11.3L, Monocytes (%) (Auto) 11.0H, Eosinophils (%) (Auto) 1.4, Basophils (%) (Auto) 1.6H, Neutrophils # (Auto) 7.4, Lymphocytes # (Auto) 1.1L, Monocytes # (Auto) 1.1H, Eosinophils # (Auto) 0.1, Basophils # (Auto) 0.2, Nucleated Red Blood Cells % (auto) 0.0 09/23/20 13:21: Prothrombin Time 13.2, Prothromb Time International Ratio 0.96, Activated Partial Thromboplast Time 28.9 CBC/BMP Laboratory Tests 09/23/20 12:02 09/23/20 12:03 Assessment/Plan 50-year-old male with history of alcoholic cirrhosis, ascites, portal hypertension, cholestatic jaundice who was recently admitted in our hospital from 09/15/2020 to 09/18/2020 for hypokalemia, cholestatic jaundice, decompensated cirrhosis, chronic diarrhea presents today and to the emergency room at the instruction of his primary care provider because PCP noted him to be jaundiced and noted him to have swelling of legs and ascites. Patient reported that he is jaundiced swelling of legs and swelling of the abdomen is not any worse from last week. He does report that he has noted a change in his bowel habits before he used to have chronic diarrhea for years but in the last couple weeks he is stool is more formed and sometimes he is constipated. He has not seen any blood in his stool. He reports he has been compliant with his dietary and fluid restrictions and in fact he is swelling in the legs are coming down slowly. Labs in the ED shows cholestatic jaundice with the total bilirubin of greater than 6 and with a direct of greater than 4 however these numbers are less than what it was last week. His electrolytes are okay his hemoglobin is stable. He was admitted for observation for decompensated liver cirrhosis. Decompensated alcoholic cirrhosis of liver with ascites, cholestatic jaundice Has high ferritin but there is no mutation hemochromatosis gene Patient has mild to moderate ascites and is not uncomfortable does not need tapping at this point Had EGD in February 2020 there was no varices but radiological studies in September do suggest portal hypertension No thrombocytopenia at present We will continue with Lasix and will start spironolactone Follow-up with GI as an outpatient Peptic ulcer disease No issues at this point No home medication Plan / VTE VTE Prophylaxis Ordered?: Yes BLAKE PALOMO MD Sep 23, 2020 15:42
[2020-09-24] MEDS ORDERED: ALDA25TA2 PO (08:11)
[2020-09-24] MEDS ORDERED: POTA1TAB14 PO (08:12)
--- NOTE | 2020-09-24 08:15 | IPNPDOC ---
Subjective Date Seen The patient was seen on 09/24/20. Subjective Chief Complaint/HPI Feels well no complaints. Patient reports that he likes to take his diuretics at night because he has noticed that if he takes them in the morning he goes to the bathroom more at night. If he takes it at night he does not wake up that much during the night but goes to the bathroom more during the day. Patient eager to go home and reports that he feels much better than last week. Objective Physical Examination General Exam: Positive: Alert, Cooperative, No Acute Distress Eye Exam: Positive: PERRLA, Conjunctiva & lids normal, Sclera icteric ENT Exam: Positive: Atraumatic, Mucous membr. moist/pink, Pharynx Normal Neck Exam: Positive: Supple; Negative: JVD, thyromegaly Chest Exam: Positive: Clear to auscultation, Normal air movement Heart Exam: Positive: Rate Normal, Regular Rhythm, Normal S1, Normal S2; Negative: Murmurs, Rubs Abdomen Exam: Positive: Normal bowel sounds, Soft, Other (Ascites present); Negative: Tenderness Extremity Exam: Positive: Edema (3+ edema bilaterally), Normal pulses; Negative: Clubbing, Cyanosis Skin Exam: Positive: Nl turgor and temperature; Negative: Breakdown, Lesion Neuro Exam: Positive: Normal Speech, Strength at 5/5 X4 ext, Normal Tone Psych Exam: Positive: Memory Intact, Oriented x 3 Assessment /Plan Assessment 50-year-old male with history of alcoholic cirrhosis, ascites, portal hypertension, cholestatic jaundice who was recently admitted in our hospital from 09/15/2020 to 09/18/2020 for hypokalemia, cholestatic jaundice, decompensated cirrhosis, chronic diarrhea presents today and to the emergency room at the instruction of his primary care provider because PCP noted him to be jaundiced and noted him to have swelling of legs and ascites. Patient reported that he is jaundiced swelling of legs and swelling of the abdomen is not any worse from last week. He does report that he has noted a change in his bowel habits before he used to have chronic diarrhea for years but in the last couple weeks he is stool is more formed and sometimes he is constipated. He has not seen any blood in his stool. He reports he has been compliant with his dietary and fluid restrictions and in fact he is swelling in the legs are coming down slowly. Labs in the ED shows cholestatic jaundice with the total bilirubin of greater than 6 and with a direct of greater than 4 however these numbers are less than what it was last week. His electrolytes are okay his hemoglobin is stable. He was admitted for observation for decompensated liver cirrhosis. Decompensated alcoholic cirrhosis of liver with ascites, cholestatic jaundice Has high ferritin but there is no mutation hemochromatosis gene Patient has mild to moderate ascites and is not uncomfortable does not need tapping at this point Had EGD in February 2020 there was no varices but radiological studies in September do suggest portal hypertension No thrombocytopenia at present We will continue with Lasix and will start spironolactone, continue potassium at reduced dose. Follow-up with GI as an outpatient Peptic ulcer disease No issues at this point No home medication Dispo: Home Plan/VTE VTE Prophylaxis Ordered?: Yes VS, I&O, 24H, Fishbone Vital Signs/I&O Vital Signs Date Time Temp Pulse Resp B/P (MAP) Pulse Ox O2 Delivery O2 Flow Rate FiO2 09/24/20 06:00 97.5 73 20 116/70 (85) 98 Room Air I&O- Last 24 Hours up to 6 AM 09/24/20 06:00 Intake Total 150 ml Balance 150 ml Laboratory Data 24H LABS Laboratory Tests 2 09/23/20 12:02: Anion Gap 7L, Glomerular Filtration Rate > 60.0, Calcium Level 7.9L, Total Bilirubin 6.6H, Direct Bilirubin 4.5H, Aspartate Amino Transf (AST/SGOT) 141H, Alanine Aminotransferase (ALT/SGPT) 45, Alkaline Phosphatase 285H, SU-Hub-H-Type Natriuretic Peptide 176H, Total Protein 6.3L, Albumin 1.9L, Albumin/Globulin Ratio 0.4, Lipase 573H, Thyroid Stimulating Hormone (TSH) 5.230H, Free Thyroxine 1.14 09/23/20 12:03: Immature Granulocyte % (Auto) 1.1, Neutrophils (%) (Auto) 73.6H, Lymphocytes (%) (Auto) 11.3L, Monocytes (%) (Auto) 11.0H, Eosinophils (%) (Auto) 1.4, Basophils (%) (Auto) 1.6H, Neutrophils # (Auto) 7.4, Lymphocytes # (Auto) 1.1L, Monocytes # (Auto) 1.1H, Eosinophils # (Auto) 0.1, Basophils # (Auto) 0.2, Nucleated Red Blood Cells % (auto) 0.0 09/23/20 13:21: Prothrombin Time 13.2, Prothromb Time International Ratio 0.96, Activated Partial Thromboplast Time 28.9 09/23/20 15:37: Coronavirus (COVID-19)(PCR) NEGATIVE, Influenza Type A (RT-PCR) NEGATIVE, Influenza Type B (RT-PCR) NEGATIVE, Respiratory Syncytial Virus (PCR) NEGATIVE 09/24/20 05:38: Nucleated Red Blood Cells % (auto) 0.0, Anion Gap 6L, Glomerular Filtration Rate > 60.0, Calcium Level 7.4L, Magnesium Level 2.0, Total Bilirubin 6.1H, Aspartate Amino Transf (AST/SGOT) 97H, Alanine Aminotransferase (ALT/SGPT) 38, Alkaline Phosphatase 221H, Total Protein 4.9#L, Albumin 1.7L, Albumin/Globulin Ratio 0.5 CBC/BMP Laboratory Tests 09/23/20 12:02 09/23/20 12:03 09/24/20 05:38 BLAKE PALOMO MD Sep 24, 2020 08:15
[2020-09-24] MEDS ORDERED: SPIRONOLACTONE 25 MG TAB PO SCH (09:00)
[2020-09-24] MEDS ORDERED: FUROSEMIDE 40MG/4ML VIAL (J1940) IV SCH (09:00)
[2020-09-24] MEDS ORDERED: POTASSIUM CHLORIDE 10 MEQ SR TABLET PO SCH (09:00)
[2020-09-24] MEDS ORDERED: MULTIVITAMINS/MINERALS THERAP 1 TAB PO SCH (09:00)
--- NOTE | 2020-09-26 13:48 | ED PDOC ---
Post-Departure Follow-Up radiology report faxed to jessica Calero Sarah MD Sep 26, 2020 13:48
== END 2020-09-24 11:15 | disposition home or self-care (01) ==
LOC: M ED 10:10 → EDBD 10:10 → M ED INP 16:20 → ENRESERV 17:13 → M MS5PR 21:37
PROVIDERS: ADMIT Internal Medicine Nephrology; ATTEND Internal Medicine Nephrology
DX: K70.31 Alcoholic cirrhosis of liver with ascites (principal); K71.0 Toxic liver disease with cholestasis; K76.6 Portal hypertension; E87.6 Hypokalemia; K27.9 Peptic ulcer, site unspecified, unspecified as acute or chronic, without hemorrhage or perforation; R60.9 Edema, unspecified; D69.6 Thrombocytopenia, unspecified; E87.1 Hypo-osmolality and hyponatremia; J45.909 Unspecified asthma, uncomplicated; K80.10 Calculus of gallbladder with chronic cholecystitis without obstruction; F10.11 Alcohol abuse, in remission; Z91.040 Latex allergy status; Z88.8 Allergy status to other drugs, medicaments and biological substances; Z79.899 Other long term (current) drug therapy
CPT/HCPCS: 36415; 71045; 76705; 80048; 80053; 80076; 83690; 83735; 83880; 84439; 84443; 85025; 85027; 85610; 85730; 87631; 93041; 96374; 96376; 99285; J1940

== ENCOUNTER → 2020-11-05 | Outpatient (CLI) | payer OTHER ==
[~2020-11-05] MED LIST changes: +ALDA25TA2 PO; +FURO40TA2 PO
[2020-11-05 13:17] LABS: HEMATOCRIT 41.5 % (42.0-52.0); HEMOGLOBIN 14.7 g/dl (13.5-17.5); MEAN CORPUSCULAR HEMOGLOBIN 33.9 pg (27.0-33.0); MEAN CORPUSCULAR HGB CONC 35.4 g/dl (32.0-36.5); MEAN CORPUSCULAR VOLUME 95.6 fl (80.0-96.0); PLATELET COUNT, AUTOMATED 251 10^3/uL (150-450); RED BLOOD COUNT 4.34 10^6/uL (4.30-6.10); WHITE BLOOD COUNT 6.1 10^3/uL (4.0-10.0)
[2020-11-05 13:31] LABS: INR 0.97; PROTHROMBIN TIME 13.3 SECONDS (12.7-14.5)
[2020-11-05 14:45] LABS: ALBUMIN 3.6 GM/DL (3.2-5.2); ALT/SGPT 39 U/L (12-78); BILIRUBIN,DIRECT 0.7 MG/DL (0.0-0.2); BILIRUBIN,TOTAL 1.1 MG/DL (0.2-1.0); BLOOD UREA NITROGEN 9 MG/DL (7-18); CALCIUM LEVEL 9.7 MG/DL (8.5-10.1); CARBON DIOXIDE LEVEL 21 MEQ/L (21-32); CHLORIDE LEVEL 106 MEQ/L (98-107); CREATININE FOR GFR 0.75 MG/DL (0.70-1.30); GLOMERULAR FILTRATION RATE > 60.0 (>56); GLUCOSE, FASTING 93 MG/DL (70-100); POTASSIUM SERUM 3.7 MEQ/L (3.5-5.1); SODIUM LEVEL 138 MEQ/L (136-145)
== END ==
LOC: M LAB 12:09
PROVIDERS: ATTEND Internal Medicine Gastroenterology
DX: K74.60 Unspecified cirrhosis of liver (principal)

== ENCOUNTER 2022-06-21 16:52 | Emergency (ER) | payer OTHER ==
[~2022-06-21] VITALS: Ht 167.6 cm; Wt 72.7 kg
[~2022-06-21 16:52] MED LIST changes: +B-1100TA2 PO; +CENT1TAB PO; +FOLI1TAB11 PO; +FURO20TA2 PO; +INCR1INH INH; +LEVO25TA5 PO; +NEUR300C PO; +POTA-151; +POTA-298 PO; -POTA1TAB14 PO; -POTA20TA6; +PROAAER10 INH
[2022-06-21 17:06] VITALS: BP 189/97
[2022-06-21] MEDS ORDERED: LIDOCAINE 2% W/EPINEPHRINE 20ML VIAL **PRES FREE INJ ONE (18:00)
[2022-06-21 18:17] LABS: BASO # 0.1 10^3/uL (0.0-0.2); BASO % 1.6 % (0.0-1.0); EOS # 0.1 10^3/uL (0.0-0.5); HEMATOCRIT 39.1 % (42.0-52.0); HEMOGLOBIN 13.5 g/dl (13.5-17.5); LYMPH # 3.1 10^3/uL (1.5-5.0); LYMPH % 51.6 % (24.0-44.0); MEAN CORPUSCULAR HEMOGLOBIN 33.1 pg (27.0-33.0); MEAN CORPUSCULAR HGB CONC 34.5 g/dl (32.0-36.5); MEAN CORPUSCULAR VOLUME 95.8 fl (80.0-96.0); MONO # 0.8 10^3/uL (0.0-0.8); MONO % 12.9 % (2.0-8.0); NEUTROPHILS # 1.9 10^3/uL (1.5-8.5); NEUTROPHILS % 31.6 % (36.0-66.0); PLATELET COUNT, AUTOMATED 119 10^3/uL (150-450); RED BLOOD COUNT 4.08 10^6/uL (4.30-6.10); WHITE BLOOD COUNT 6.1 10^3/uL (4.0-10.0)
[2022-06-21 18:32] LABS: INR 0.91; PROTHROMBIN TIME 12.4 SECONDS (12.5-14.5)
[2022-06-21 18:33] LABS: PARTIAL THROMBOPLASTIN TIME 24.7 SECONDS (24.8-34.2)
[2022-06-21 18:37] LABS: ACETAMINOPHEN LEVEL < 2.0 UG/ML (10.0-20.0)
[2022-06-21 18:38] LABS: BLOOD UREA NITROGEN 12 MG/DL (9-23); CALCIUM LEVEL 8.7 MG/DL (8.5-10.1); CARBON DIOXIDE LEVEL 20 MMOL/L (20-31); CHLORIDE LEVEL 111 MMOL/L (98-107); CREATININE FOR GFR 0.81 MG/DL (0.70-1.30); GLOMERULAR FILTRATION RATE > 60.0 (>56); GLUCOSE, FASTING 91 MG/DL (60-100); POTASSIUM SERUM 3.4 MMOL/L (3.5-5.1); SALICYLATE LEVEL < 3.0 MG/DL (<30); SODIUM LEVEL 143 MMOL/L (136-145)
[2022-06-21 18:50] LABS: ETHYL ALCOHOL (ETHANOL) 0.379 % (0.000-0.010)
== END 2022-06-21 18:29 | disposition left against medical advice (07) ==
LOC: M ED 16:52
DX: S01.01XA Laceration without foreign body of scalp, initial encounter (principal); S01.81XA Laceration without foreign body of other part of head, initial encounter; F10.129 Alcohol abuse with intoxication, unspecified; Z91.040 Latex allergy status; Z88.8 Allergy status to other drugs, medicaments and biological substances; Y04.0XXA Assault by unarmed brawl or fight, initial encounter; Z79.52 Long term (current) use of systemic steroids; Z79.810 Long term (current) use of selective estrogen receptor modulators (SERMs); Z79.899 Other long term (current) drug therapy; Z53.9 Procedure and treatment not carried out, unspecified reason

== ENCOUNTER 2022-08-24 11:38 | Inpatient (IN) | payer OTHER ==
[~2022-08-24] VITALS: Ht 167.6 cm; Wt 74.0 kg
[2022-08-24 12:27] LABS: BASO # 0.1 10^3/uL (0.0-0.2); BASO % 0.9 % (0.0-1.0); EOS % 0.2 % (0.0-3.0); HEMATOCRIT 38.9 % (42.0-52.0); HEMOGLOBIN 13.8 g/dl (13.5-17.5); LYMPH % 17.7 % (24.0-44.0); MEAN CORPUSCULAR HEMOGLOBIN 33.8 pg (27.0-33.0); MEAN CORPUSCULAR HGB CONC 35.5 g/dl (32.0-36.5); MEAN CORPUSCULAR VOLUME 95.3 fl (80.0-96.0); MONO # 0.8 10^3/uL (0.0-0.8); MONO % 13.1 % (2.0-8.0); NEUTROPHILS % 67.8 % (36.0-66.0); RED BLOOD COUNT 4.08 10^6/uL (4.30-6.10); WHITE BLOOD COUNT 5.9 10^3/uL (4.0-10.0)
[2022-08-24 12:46] LABS: CK-MB VALUE MASS < 1.0 NG/ML (<3.6)
[2022-08-24 12:49] LABS: ALBUMIN 4.6 G/DL (3.2-5.2); ALKALINE PHOSPHATASE 153 U/L (46-116); ALT/SGPT 158 U/L (7.0-40); AST/SGOT 273 U/L (<34); BILIRUBIN,DIRECT 1.4 MG/DL (<0.4); BILIRUBIN,TOTAL 3.3 MG/DL (0.3-1.2); BLOOD UREA NITROGEN 13 MG/DL (9-23); CALCIUM LEVEL 9.2 MG/DL (8.5-10.1); CARBON DIOXIDE LEVEL 18 MMOL/L (20-31); CHLORIDE LEVEL 97 MMOL/L (98-107); CPK CREATINE PHOSPHOKINASE 328 U/L (46-171); CREATININE FOR GFR 0.69 MG/DL (0.70-1.30); GLOMERULAR FILTRATION RATE > 60.0 (>56); GLUCOSE, FASTING 157 MG/DL (60-100); SODIUM LEVEL 139 MMOL/L (136-145); TOTAL PROTEIN 7.6 G/DL (5.7-8.2)
[2022-08-24 12:50] LABS: THYROID STIMULATING HORMONE 2.532 uIU/ML (0.55-4.78)
[2022-08-24 13:11] LABS: PLATELET COUNT, AUTOMATED 26 10^3/uL (150-450)
[2022-08-24] MEDS ORDERED: POTASSIUM CHLORIDE 10MEQ SR TABLET PO ONE (14:35)
[2022-08-24 14:46] LABS: MAGNESIUM LEVEL 1.8 MG/DL (1.8-2.4)
[2022-08-24] MEDS: POTASSIUM CHLORIDE 10MEQ SR TABLET PO SCH ×2 (14:52→16:58)
[2022-08-24 15:05] LABS: INR 1.06
[2022-08-24 16:06] LABS: ACETONE/KETONE 0.27 MMOL/L (0.02-0.27)
[2022-08-24 16:29] LABS: ABG BASE EXCESS 2.7 (-2.0-2.0); ABG HCO3 24.3 MMOL/L (22.0-26.0); ABG O2 SATURATION 97.2 % (95.0-99.0); ABG PARTIAL PRESSURE CO2 29.4 mmHg (35.0-45.0); ABG STANDARD HCO3 26.9 MMOL/L. (22.0-26.0); ABG TOTAL CO2 25.3 MMOL/L (22.0-29.0); ABG pH (ARTERIAL) 7.536 UNITS (7.350-7.450)
[2022-08-24] MEDS ORDERED: NS 1,000 ML IV ONE (16:50)
[2022-08-24] MEDS ORDERED: LORazepam 2 MG TAB PO PRN (17:30)
[2022-08-24] MEDS: THIAMINE 100 MG TAB PO SCH (19:15)
[2022-08-24] MEDS ORDERED: MED REC IN PROGRESS XX SCH (21:10)
[2022-08-24 21:53] LABS: RSV AMPLIFICATION NEGATIVE (NEGATIVE)
[2022-08-24] MEDS ORDERED: POTA-298 PO (22:53)
[2022-08-24] MEDS ORDERED: VITMTA PO (22:53)
[2022-08-24] MEDS ORDERED: LORA-674 PO (22:53)
[2022-08-24] MEDS ORDERED: ALBU8.5H INH (22:53)
[2022-08-24] MEDS ORDERED: HOME MED LIST COMPLETE! XX SCH (22:55)
[2022-08-24 23:14] VITALS: BP 148/94; TEMP 98.4; O2SAT 98
[2022-08-24 23:32] VITALS: BP 148/94
[2022-08-25] VITALS (9 sets, daily range): BP systolic 138–190; BP diastolic 85–110; TEMP 97.8–98.9; O2SAT 97–99
[2022-08-25 00:45] LABS: CK-MB VALUE MASS 5.8 NG/ML (<3.6)
[2022-08-25 01:15] LABS: MB/CK RELATIVE INDEX 0.72 (< OR =4)
[2022-08-25 08:20] LABS: HEMATOCRIT 36.9 % (42.0-52.0); HEMOGLOBIN 12.7 g/dl (13.5-17.5); MEAN CORPUSCULAR HEMOGLOBIN 33.2 pg (27.0-33.0); MEAN CORPUSCULAR HGB CONC 34.4 g/dl (32.0-36.5); MEAN CORPUSCULAR VOLUME 96.3 fl (80.0-96.0); RED BLOOD COUNT 3.83 10^6/uL (4.30-6.10); WHITE BLOOD COUNT 6.1 10^3/uL (4.0-10.0)
[2022-08-25 08:37] LABS: CK-MB VALUE MASS 4.2 NG/ML (<3.6)
[2022-08-25 08:39] LABS: ALBUMIN 4.2 G/DL (3.2-5.2); ALKALINE PHOSPHATASE 135 U/L (46-116); ALT/SGPT 142 U/L (7.0-40); AST/SGOT 226 U/L (<34); BILIRUBIN,TOTAL 2.8 MG/DL (0.3-1.2); BLOOD UREA NITROGEN 13 MG/DL (9-23); CALCIUM LEVEL 9.9 MG/DL (8.5-10.1); CARBON DIOXIDE LEVEL 22 MMOL/L (20-31); CHLORIDE LEVEL 100 MMOL/L (98-107); GLOMERULAR FILTRATION RATE > 60.0 (>56); GLUCOSE, FASTING 72 MG/DL (60-100); MAGNESIUM LEVEL 1.7 MG/DL (1.8-2.4); POTASSIUM SERUM 3.4 MMOL/L (3.5-5.1); SODIUM LEVEL 137 MMOL/L (136-145)
[2022-08-25 08:43] LABS: PLATELET COUNT, AUTOMATED 19 10^3/uL (150-450)
[2022-08-25 08:49] LABS: MB/CK RELATIVE INDEX 0.5 (< OR =4)
[2022-08-25] MEDS ORDERED: ENOXAPARIN 30MG/0.3ML SYRINGE (J1650 PER 10MG) SC SCH (09:00)
[2022-08-25] MEDS: THIAMINE 100 MG TAB PO SCH ×2 (09:07→20:01)
[2022-08-25] MEDS: MULTIVITAMINS/MINERALS THERAP 1 TAB PO SCH (09:07)
[2022-08-25] MEDS: FOLIC ACID 1MG TAB PO SCH (09:07)
[2022-08-25 09:52] LABS: HEPATITIS B SURFACE ANTIGEN NEGATIVE (NEGATIVE)
[2022-08-25 10:06] LABS: HIV 1&2 SCREEN NEGATIVE (NEGATIVE)
[2022-08-25 10:13] LABS: HEPATITIS C VIRUS ABY INDEX 0.07 INDEX (<0.8)
[2022-08-25 10:14] LABS: HEPATITIS B CORE ANTIBODY IGM NEGATIVE (NEGATIVE)
[2022-08-25] MEDS ORDERED: POTASSIUM CHLORIDE 10MEQ SR TABLET PO ONE (15:00)
[2022-08-25 17:11] LABS: CK-MB VALUE MASS 4.6 NG/ML (<3.6)
[2022-08-25 17:13] LABS: MB/CK RELATIVE INDEX 0.53 (< OR =4)
[2022-08-25] MEDS ORDERED: LORazepam 0.5 MG TAB PO ONE (19:55)
[2022-08-25] MEDS ORDERED: cloNIDine 0.1MG TABLET PO ONE (22:00)
[2022-08-26] VITALS (7 sets, daily range): BP systolic 123–188; BP diastolic 71–122; TEMP 98.7–98.8; O2SAT 99
[2022-08-26] MEDS ORDERED: LORazepam 0.5 MG TAB PO ONE (05:00)
[2022-08-26] MEDS ORDERED: cloNIDine 0.1MG TABLET PO ONE (06:00)
[2022-08-26 06:32] LABS: HEMATOCRIT 35.8 % (42.0-52.0); HEMOGLOBIN 12.3 g/dl (13.5-17.5); MEAN CORPUSCULAR HEMOGLOBIN 33.2 pg (27.0-33.0); MEAN CORPUSCULAR HGB CONC 34.4 g/dl (32.0-36.5); MEAN CORPUSCULAR VOLUME 96.8 fl (80.0-96.0); WHITE BLOOD COUNT 5.5 10^3/uL (4.0-10.0)
[2022-08-26 06:36] LABS: PLATELET COUNT, AUTOMATED 26 10^3/uL (150-450)
[2022-08-26 06:54] LABS: ALBUMIN 4.3 G/DL (3.2-5.2); ALKALINE PHOSPHATASE 140 U/L (46-116); ALT/SGPT 123 U/L (7.0-40); AST/SGOT 163 U/L (<34); BILIRUBIN,TOTAL 1.9 MG/DL (0.3-1.2); BLOOD UREA NITROGEN 13 MG/DL (9-23); CALCIUM LEVEL 8.8 MG/DL (8.5-10.1); CARBON DIOXIDE LEVEL 22 MMOL/L (20-31); CHLORIDE LEVEL 101 MMOL/L (98-107); CREATININE FOR GFR 0.59 MG/DL (0.70-1.30); GLOMERULAR FILTRATION RATE > 60.0 (>56); GLUCOSE, FASTING 75 MG/DL (60-100); MAGNESIUM LEVEL 1.6 MG/DL (1.8-2.4); POTASSIUM SERUM 3.2 MMOL/L (3.5-5.1); SODIUM LEVEL 135 MMOL/L (136-145); TOTAL PROTEIN 6.9 G/DL (5.7-8.2)
[2022-08-26] MEDS ORDERED: POTASSIUM CHLORIDE 10MEQ SR TABLET PO SCH (09:00)
[2022-08-26] MEDS: FOLIC ACID 1MG TAB PO SCH (09:58)
[2022-08-26] MEDS: MULTIVITAMINS/MINERALS THERAP 1 TAB PO SCH (09:58)
[2022-08-26] MEDS: THIAMINE 100 MG TAB PO SCH (09:58)
[2022-08-26] MEDS ORDERED: AMLO1TAB24 PO (10:12)
[2022-08-26 13:08] LABS: HEPATITIS C QUANTITATION HCV Not Detected IU/mL (.)
== END 2022-08-26 10:52 | disposition home or self-care (01) | DRG 661 ==
LOC: EDBD 11:38 → M ED 11:38 → M ED INP 17:27 → M MS4PR 23:25
PROVIDERS: ADMIT Family Medicine; ATTEND Family Medicine
DX: D69.6 Thrombocytopenia, unspecified (principal); E83.42 Hypomagnesemia; K70.30 Alcoholic cirrhosis of liver without ascites; R55 Syncope and collapse; J45.909 Unspecified asthma, uncomplicated; R19.7 Diarrhea, unspecified; D73.1 Hypersplenism; E87.6 Hypokalemia; I10 Essential (primary) hypertension; D53.9 Nutritional anemia, unspecified; Z91.040 Latex allergy status; Z88.8 Allergy status to other drugs, medicaments and biological substances; Z79.899 Other long term (current) drug therapy

== ENCOUNTER → 2022-09-08 | Outpatient (REF) | payer OTHER ==
[~2022-09-08] MED LIST changes: +ALBU8.5H INH; +AMLO1TAB24 PO; +EQL50TAB2 PO; +FOLI400T13 PO; +TRAZ-252
[2022-09-08 17:12] LABS: BASO # 0.1 10^3/uL (0.0-0.2); BASO % 2.4 % (0.0-1.0); EOS # 0.1 10^3/uL (0.0-0.5); EOS % 2.2 % (0.0-3.0); HEMATOCRIT 39.5 % (42.0-52.0); HEMOGLOBIN 13.1 g/dl (13.5-17.5); LYMPH # 1.6 10^3/uL (1.5-5.0); LYMPH % 26.5 % (24.0-44.0); MEAN CORPUSCULAR HEMOGLOBIN 33.4 pg (27.0-33.0); MEAN CORPUSCULAR HGB CONC 33.2 g/dl (32.0-36.5); MEAN CORPUSCULAR VOLUME 100.8 fl (80.0-96.0); MONO # 0.7 10^3/uL (0.0-0.8); MONO % 12.5 % (2.0-8.0); NEUTROPHILS # 3.3 10^3/uL (1.5-8.5); NEUTROPHILS % 56.1 % (36.0-66.0); PLATELET COUNT, AUTOMATED 316 10^3/uL (150-450); RED BLOOD COUNT 3.92 10^6/uL (4.30-6.10); WHITE BLOOD COUNT 5.9 10^3/uL (4.0-10.0)
[2022-09-08 17:39] LABS: THYROID STIMULATING HORMONE 2.674 uIU/ML (0.55-4.78)
[2022-09-08 17:40] LABS: ALBUMIN 4.1 G/DL (3.2-5.2); ALKALINE PHOSPHATASE 109 U/L (46-116); ALT/SGPT 59 U/L (7.0-40); AST/SGOT 46 U/L (<34); BILIRUBIN,TOTAL 0.5 MG/DL (0.3-1.2); BLOOD UREA NITROGEN 6 MG/DL (9-23); CALCIUM LEVEL 9.3 MG/DL (8.5-10.1); CARBON DIOXIDE LEVEL 23 MMOL/L (20-31); CHLORIDE LEVEL 107 MMOL/L (98-107); CREATININE FOR GFR 0.75 MG/DL (0.70-1.30); GLOMERULAR FILTRATION RATE > 60.0 (>56); GLUCOSE, FASTING 88 MG/DL (60-100); POTASSIUM SERUM 3.7 MMOL/L (3.5-5.1); SODIUM LEVEL 140 MMOL/L (136-145); TOTAL PROTEIN 6.7 G/DL (5.7-8.2)
== END ==
LOC: M LAB REF 16:17
PROVIDERS: ATTEND Pediatrics
DX: D69.6 Thrombocytopenia, unspecified (principal); E03.9 Hypothyroidism, unspecified; K74.60 Unspecified cirrhosis of liver

== ENCOUNTER 2023-04-02 06:09 | Inpatient (IN) | payer OTHER ==
[~2023-04-02] VITALS: Ht 167.6 cm; Wt 74.9 kg
[~2023-04-02 06:09] MED LIST changes: +LORA-1041 PO; -LORA-674 PO
[2023-04-02 06:47] LABS: BASO # 0.1 10^3/uL (0.0-0.2); BASO % 1.1 % (0.0-1.0); EOS # 0.1 10^3/uL (0.0-0.5); EOS % 0.9 % (0.0-3.0); HEMATOCRIT 38.1 % (42.0-52.0); HEMOGLOBIN 13.6 g/dl (13.5-17.5); LYMPH # 1.1 10^3/uL (1.5-5.0); LYMPH % 16.3 % (24.0-44.0); MEAN CORPUSCULAR HEMOGLOBIN 35.1 pg (27.0-33.0); MEAN CORPUSCULAR HGB CONC 35.7 g/dl (32.0-36.5); MEAN CORPUSCULAR VOLUME 98.4 fl (80.0-96.0); MONO % 14.6 % (2.0-8.0); NEUTROPHILS # 4.7 10^3/uL (1.5-8.5); NEUTROPHILS % 66.5 % (36.0-66.0); RED BLOOD COUNT 3.87 10^6/uL (4.30-6.10)
[2023-04-02 06:51] LABS: INR 1.33
[2023-04-02 06:52] LABS: PARTIAL THROMBOPLASTIN TIME 30.4 SECONDS (24.8-34.2)
[2023-04-02 07:07] LABS: CK-MB VALUE MASS < 1.0 NG/ML (<3.6)
[2023-04-02 07:09] LABS: BLOOD UREA NITROGEN 14 MG/DL (9-23); CALCIUM LEVEL 9.3 MG/DL (8.5-10.1); CARBON DIOXIDE LEVEL 14 MMOL/L (20-31); CHLORIDE LEVEL 97 MMOL/L (98-107); CREATININE FOR GFR 0.85 MG/DL (0.70-1.30); GLOMERULAR FILTRATION RATE > 60.0 (>56); GLUCOSE, FASTING 143 MG/DL (60-100); MAGNESIUM LEVEL 1.8 MG/DL (1.8-2.4); SODIUM LEVEL 135 MMOL/L (136-145)
[2023-04-02 07:10] LABS: THYROID STIMULATING HORMONE 3.483 uIU/ML (0.55-4.78)
[2023-04-02 07:11] LABS: FREE T4 1.25 NG/DL (0.89-1.76)
[2023-04-02 07:12] LABS: PLATELET COUNT, AUTOMATED 30 10^3/uL (150-450)
[2023-04-02 07:14] LABS: CPK CREATINE PHOSPHOKINASE 209 U/L (46-171); MB/CK RELATIVE INDEX 0.47 (< OR =4)
[2023-04-02] MEDS: KCL 10MEQ/100ML SWI (KRUN) 10 MEQ in IV 1 EA IV ONE (07:25)
[2023-04-02] MEDS ORDERED: ISOVUE-370 76% 100ML VIAL As Ordered ONE (07:35)
[2023-04-02 07:42] LABS: RSV AMPLIFICATION NEGATIVE (NEGATIVE)
[2023-04-02] MEDS: NS 1,000 ML IV ONE ×2 (07:42→09:31)
[2023-04-02 07:48] LABS: ETHYL ALCOHOL (ETHANOL) < 0.003 % (0.000-0.010)
[2023-04-02 07:49] LABS: SALICYLATE LEVEL < 3.0 MG/DL (<30)
[2023-04-02 07:52] LABS: ALBUMIN 4.3 G/DL (3.2-5.2); ALKALINE PHOSPHATASE 175 U/L (46-116); ALT/SGPT 116 U/L (7.0-40); AST/SGOT 259 U/L (<34); BILIRUBIN,DIRECT 4.9 MG/DL (<0.4); BILIRUBIN,TOTAL 7.7 MG/DL (0.3-1.2); LIPASE 61 U/L (12-53); TOTAL PROTEIN 7.4 G/DL (5.7-8.2)
[2023-04-02] MEDS: POTASSIUM CHLORIDE 10MEQ SR TABLET PO ONE (08:12)
[2023-04-02 08:23] LABS: CK-MB VALUE MASS < 1.0 NG/ML (<3.6)
[2023-04-02 08:24] LABS: CPK CREATINE PHOSPHOKINASE 210 U/L (46-171); MB/CK RELATIVE INDEX 0.47 (< OR =4)
[2023-04-02] MEDS: LACTULOSE 20GM/30ML SYRUP UDC PO ONE (09:30)
[2023-04-02] MEDS ORDERED: ACETYLCYSTEINE 11,250 MG in D5W 250 ML IV ONE (10:00)
[2023-04-02 10:14] LABS: AMPHETAMINES LEVEL URINE NEGATIVE (NEGATIVE); BARBITURATES URINE NEGATIVE (NEGATIVE); BENZODIAZEPINES URINE NEGATIVE (NEGATIVE); COCAINE METABOLITE URINE NEGATIVE (NEGATIVE); METHADONE URINE NEGATIVE (NEGATIVE); OPIATES URINE NEGATIVE (NEGATIVE); PHENCYCLIDINE URINE NEGATIVE (NEGATIVE)
[2023-04-02 10:16] LABS: CANNABINOIDS URINE POSITIVE (NEGATIVE)
[2023-04-02] MEDS ORDERED: MED REC IN PROGRESS XX SCH (10:30)
[2023-04-02] MEDS ORDERED: POTA-298 PO (11:16)
[2023-04-02] MEDS ORDERED: AMLO1TAB24 PO (11:16)
[2023-04-02] MEDS ORDERED: MULT-6 PO (11:16)
[2023-04-02] MEDS ORDERED: VITATAB73 PO (11:16)
[2023-04-02] MEDS: MULTIVITAMINS/MINERALS THERAP 1 TAB PO SCH (11:17)
[2023-04-02] MEDS: ACETYLCYSTEINE 11,250 MG in D5W 250 ML IV ONE (11:17)
[2023-04-02] MEDS: LORazepam 2 MG TAB PO PRN (11:17)
[2023-04-02] MEDS: FOLIC ACID 1MG TAB PO SCH (11:17)
[2023-04-02] MEDS: THIAMINE 100 MG TAB PO SCH ×2 (11:17→21:58)
[2023-04-02] MEDS ORDERED: HOME MED LIST COMPLETE! XX SCH (11:25)
[2023-04-02 11:36] LABS: ALBUMIN 4.3 G/DL (3.2-5.2); ALKALINE PHOSPHATASE 168 U/L (46-116); ALT/SGPT 114 U/L (7.0-40); AST/SGOT 242 U/L (<34); BILIRUBIN,DIRECT 5.8 MG/DL (<0.4); BILIRUBIN,TOTAL 8.9 MG/DL (0.3-1.2); BLOOD UREA NITROGEN 12 MG/DL (9-23); CALCIUM LEVEL 9.2 MG/DL (8.5-10.1); CARBON DIOXIDE LEVEL 21 MMOL/L (20-31); CHLORIDE LEVEL 102 MMOL/L (98-107); CREATININE FOR GFR 0.82 MG/DL (0.70-1.30); GLOMERULAR FILTRATION RATE > 60.0 (>56); GLUCOSE, FASTING 107 MG/DL (60-100); POTASSIUM SERUM 3.3 MMOL/L (3.5-5.1); SODIUM LEVEL 136 MMOL/L (136-145); TOTAL PROTEIN 7.4 G/DL (5.7-8.2)
[2023-04-02] MEDS: ACETYLCYSTEINE 3,750 MG in D5W 500 ML IV ONE (12:46)
[2023-04-02] MEDS: ONDANSETRON 4MG 2ML VIAL IV PRN (12:53)
[2023-04-02] MEDS ORDERED: ALBUTEROL SULFATE 2.5MG/0.5ML INH NEB SOLN INH PRN (12:55)
[2023-04-02 14:05] VITALS: BP 120/80; TEMP 98.7; O2SAT 94
[2023-04-02 14:30] VITALS: BP 120/80
[2023-04-02] MEDS: ALBUTEROL SULFATE 2.5MG/0.5ML INH NEB SOLN INH SCH (15:20)
[2023-04-02] MEDS: KCL 20MEQ IN D5/0.45NS 1000ML 1,000 ML IV SCH (15:39)
[2023-04-02] MEDS: amLODIPine 5 MG TAB PO SCH (15:46)
[2023-04-02 16:00] VITALS: BP 124/74; TEMP 97.4; O2SAT 96
[2023-04-02] MEDS: ACETYLCYSTEINE 7,500 MG in D5W 1,000 ML IV ONE (17:23)
[2023-04-02 20:00] VITALS: BP 140/72; TEMP 98; O2SAT 99
[2023-04-02 22:00] VITALS: BP_SYST 132; BP_SYST 134; BP_DIAS 80; TEMP 97.8; O2SAT 99
[2023-04-03] VITALS (13 sets, daily range): BP systolic 113–146; BP diastolic 60–88; TEMP 97.4–98.6; O2SAT 94–99
[2023-04-03] MEDS: LORazepam 2 MG TAB PO PRN (01:11)
[2023-04-03 05:49] LABS: INR 1.36; PROTHROMBIN TIME 16.3 SECONDS (12.5-14.5)
[2023-04-03 05:50] LABS: PARTIAL THROMBOPLASTIN TIME 31.9 SECONDS (24.8-34.2)
[2023-04-03 06:02] LABS: HEMOGLOBIN 12.3 g/dl (13.5-17.5); MEAN CORPUSCULAR HEMOGLOBIN 34.6 pg (27.0-33.0); MEAN CORPUSCULAR HGB CONC 36.2 g/dl (32.0-36.5); MEAN CORPUSCULAR VOLUME 95.8 fl (80.0-96.0); RED BLOOD COUNT 3.55 10^6/uL (4.30-6.10); WHITE BLOOD COUNT 5.7 10^3/uL (4.0-10.0)
[2023-04-03 06:08] LABS: PLATELET COUNT, AUTOMATED 21 10^3/uL (150-450)
[2023-04-03 06:25] LABS: ALBUMIN 3.4 G/DL (3.2-5.2); ALKALINE PHOSPHATASE 129 U/L (46-116); ALT/SGPT 94 U/L (7.0-40); AST/SGOT 196 U/L (<34); BILIRUBIN,TOTAL 7.1 MG/DL (0.3-1.2); BLOOD UREA NITROGEN < 5 MG/DL (9-23); CALCIUM LEVEL 8.2 MG/DL (8.5-10.1); CARBON DIOXIDE LEVEL 22 MMOL/L (20-31); CHLORIDE LEVEL 102 MMOL/L (98-107); CREATININE FOR GFR 0.59 MG/DL (0.70-1.30); GLOMERULAR FILTRATION RATE > 60.0 (>56); GLUCOSE, FASTING 107 MG/DL (60-100); MAGNESIUM LEVEL 1.4 MG/DL (1.8-2.4); SODIUM LEVEL 134 MMOL/L (136-145); TOTAL PROTEIN 6.3 G/DL (5.7-8.2)
[2023-04-03] MEDS: ACETYLCYSTEINE 7,500 MG in D5W 1,000 ML IV SCH (08:17)
[2023-04-03] MEDS: KCL 10MEQ/100ML SWI (KRUN) 10 MEQ in IV 1 EA IV SCH (08:19)
[2023-04-03] MEDS: MULTIVITAMINS/MINERALS THERAP 1 TAB PO SCH (09:29)
[2023-04-03] MEDS: FOLIC ACID 1MG TAB PO SCH (09:29)
[2023-04-03] MEDS: MAG SULF 1GM/100ML (MAG RUN) 1 GM in IV 1 EA IV ONE (16:42)
[2023-04-04] VITALS: BP 146/88
[2023-04-04 03:46] VITALS: BP 120/73; TEMP 97.3; O2SAT 98
[2023-04-04 04:00] VITALS: BP 120/73
[2023-04-04 05:17] LABS: HEMATOCRIT 32.7 % (42.0-52.0); HEMOGLOBIN 11.7 g/dl (13.5-17.5); MEAN CORPUSCULAR HEMOGLOBIN 34.9 pg (27.0-33.0); MEAN CORPUSCULAR HGB CONC 35.8 g/dl (32.0-36.5); MEAN CORPUSCULAR VOLUME 97.6 fl (80.0-96.0); RED BLOOD COUNT 3.35 10^6/uL (4.30-6.10); WHITE BLOOD COUNT 5.3 10^3/uL (4.0-10.0)
[2023-04-04 05:22] LABS: PLATELET COUNT, AUTOMATED 24 10^3/uL (150-450)
[2023-04-04 05:45] LABS: ALBUMIN 3.4 G/DL (3.2-5.2); ALKALINE PHOSPHATASE 123 U/L (46-116); ALT/SGPT 96 U/L (7.0-40); AST/SGOT 190 U/L (<34); BILIRUBIN,TOTAL 7.4 MG/DL (0.3-1.2); BLOOD UREA NITROGEN < 5 MG/DL (9-23); CALCIUM LEVEL 8.2 MG/DL (8.5-10.1); CARBON DIOXIDE LEVEL 22 MMOL/L (20-31); CHLORIDE LEVEL 104 MMOL/L (98-107); CREATININE FOR GFR 0.56 MG/DL (0.70-1.30); GLOMERULAR FILTRATION RATE > 60.0 (>56); GLUCOSE, FASTING 125 MG/DL (60-100); MAGNESIUM LEVEL 1.5 MG/DL (1.8-2.4); POTASSIUM SERUM 3.3 MMOL/L (3.5-5.1); SODIUM LEVEL 133 MMOL/L (136-145); TOTAL PROTEIN 6.1 G/DL (5.7-8.2)
[2023-04-04] MEDS: INFLUENZA QUADRIVALENT PF VACCINE 0.5ML SYRINGE IM.IMMUN ONE (09:50)
[2023-04-04] MEDS: MAG SULF 1GM/100ML (MAG RUN) 1 GM in IV 1 EA IV ONE (12:02)
[2023-04-04] MEDS: KCL 10MEQ/100ML SWI (KRUN) 10 MEQ in IV 1 EA IV SCH (13:09)
[2023-04-04 17:00] VITALS: BP 135/56; TEMP 97.3; O2SAT 98
== END 2023-04-04 17:24 | disposition left against medical advice (07) | DRG 770 ==
LOC: M ED 06:09 → EDBD 06:09 → M ED INP 12:54 → M PCU 14:04 → M MSPAV 04-04 16:00
PROVIDERS: ADMIT Family Medicine; ATTEND Family Medicine
DX: F10.239 Alcohol dependence with withdrawal, unspecified (principal); K76.6 Portal hypertension; D69.6 Thrombocytopenia, unspecified; E83.42 Hypomagnesemia; K70.30 Alcoholic cirrhosis of liver without ascites; D53.9 Nutritional anemia, unspecified; E80.6 Other disorders of bilirubin metabolism; E87.6 Hypokalemia; I10 Essential (primary) hypertension; J45.909 Unspecified asthma, uncomplicated; R55 Syncope and collapse; R74.01 Elevation of levels of liver transaminase levels; R94.5 Abnormal results of liver function studies; R19.7 Diarrhea, unspecified; R29.6 Repeated falls

== ENCOUNTER 2023-12-18 08:27 | Emergency (ER) | payer MEDICAID, OTHER ==
[~2023-12-18] VITALS: Ht 165.1 cm; Wt 72.7 kg
[~2023-12-18 08:27] MED LIST changes: +MULT-6 PO; +ONDA-282 PO; -ONDA4TAB6 PO; +VITATAB73 PO
[2023-12-18 09:15] LABS: VENOUS BASE EXCESS -3.2 (-2.0-2.0); VENOUS HCO3 22.1 MMOL/L (23.0-27.0); VENOUS O2 SATURATION 55.7 % (60.0-80.0); VENOUS PARTIAL PRESSURE CO2 40.8 mmHg (38.0-50.0); VENOUS PARTIAL PRESSURE O2 34.6 mmHg (30.0-50.0); VENOUS PH 7.352 UNITS (7.330-7.430); VENOUS TOTAL CO2 23.4 MMOL/L (24.0-28.0)
[2023-12-18 09:24] LABS: BASO # 0.2 10^3/uL (0.0-0.2); BASO % 3.2 % (0.0-1.0); EOS # 0.1 10^3/uL (0.0-0.5); EOS % 1.8 % (0.0-3.0); HEMATOCRIT 30.3 % (42.0-52.0); HEMOGLOBIN 10.2 g/dl (13.5-17.5); LYMPH % 33.6 % (24.0-44.0); MEAN CORPUSCULAR HEMOGLOBIN 36.3 pg (27.0-33.0); MEAN CORPUSCULAR HGB CONC 33.7 g/dl (32.0-36.5); MEAN CORPUSCULAR VOLUME 107.8 fl (80.0-96.0); MONO # 0.5 10^3/uL (0.0-0.8); MONO % 7.5 % (2.0-8.0); NEUTROPHILS # 3.2 10^3/uL (1.5-8.5); NEUTROPHILS % 53.2 % (36.0-66.0); RED BLOOD COUNT 2.81 10^6/uL (4.30-6.10)
[2023-12-18 09:32] LABS: PLATELET COUNT, AUTOMATED 26 10^3/uL (150-450)
[2023-12-18] MEDS: LORazepam 2 MG TAB PO PRN (09:35)
[2023-12-18] MEDS: FOLIC ACID 1MG TAB PO SCH (09:35)
[2023-12-18] MEDS: MULTIVITAMINS/MINERALS THERAP 1 TAB PO SCH (09:35)
[2023-12-18] MEDS: THIAMINE 100 MG TAB PO SCH (09:35)
[2023-12-18] MEDS: NS 500 ML IV ONE (09:35)
[2023-12-18] MEDS: BOOSTRIX VACCINE (TETANUS/DIPHTH/ACEL. PERTUSSIS) 0.5ML SYR IM.IMMUN ONE (09:36)
[2023-12-18 09:43] LABS: CK-MB VALUE MASS 15.5 NG/ML (<3.6)
[2023-12-18] MEDS: LIDOCAINE 2% W/EPINEPHRINE 20ML VIAL **PRES FREE INJ ONE (09:44)
[2023-12-18 09:45] LABS: CPK CREATINE PHOSPHOKINASE 615 U/L (46-171); MB/CK RELATIVE INDEX 2.52 (< OR =4); OSMOLALITY SERUM 408 MOSM/KG (275-295)
[2023-12-18 09:46] LABS: ALBUMIN 3.2 G/DL (3.2-5.2); ALKALINE PHOSPHATASE 184 U/L (40-129); ALT/SGPT 35 U/L (7.0-40); AST/SGOT 169 U/L (<34); BILIRUBIN,DIRECT 2.6 MG/DL (<0.4); BILIRUBIN,TOTAL 3.7 MG/DL (0.3-1.2); BLOOD UREA NITROGEN 8 MG/DL (9-23); CALCIUM LEVEL 10.3 MG/DL (8.5-10.1); CARBON DIOXIDE LEVEL 27 MMOL/L (20-31); CHLORIDE LEVEL 109 MMOL/L (98-107); CREATININE FOR GFR 0.83 MG/DL (0.70-1.30); GLOMERULAR FILTRATION RATE > 60.0 (>56); GLUCOSE, FASTING 152 MG/DL (60-100); MAGNESIUM LEVEL 1.2 MG/DL (1.8-2.4); POTASSIUM SERUM 3.2 MMOL/L (3.5-5.1); SALICYLATE LEVEL < 3.0 MG/DL (<30); SODIUM LEVEL 146 MMOL/L (136-145); TOTAL PROTEIN 7.3 G/DL (5.7-8.2)
[2023-12-18 09:47] LABS: THYROID STIMULATING HORMONE 2.897 uIU/ML (0.55-4.78)
[2023-12-18 10:01] LABS: ETHYL ALCOHOL (ETHANOL) 0.396 % (0.000-0.010)
[2023-12-18] MEDS: POTASSIUM CHLORIDE 10MEQ SR TABLET PO ONE (10:26)
[2023-12-18] MEDS: MAG SULF 1GM/100ML (MAG RUN) 1 GM in IV 1 EA IV ONE ×2 (10:27→11:24)
[2023-12-18 10:32] LABS: INR 1.28; PROTHROMBIN TIME 16.3 SECONDS (12.5-14.5)
[2023-12-18 10:37] LABS: CK-MB VALUE MASS 14.6 NG/ML (<3.6)
[2023-12-18 10:39] LABS: MB/CK RELATIVE INDEX 2.51 (< OR =4)
[2023-12-18] MEDS ORDERED: HOME MED LIST COMPLETE! XX SCH (11:05)
[2023-12-18 12:00] VITALS: TEMP 97.4
[2023-12-18 13:31] VITALS: BP 122/84; O2SAT 100
== END 2023-12-18 13:59 | disposition short-term general hospital (02) ==
LOC: M ED 08:27 → EDBD 08:27 → M ED 13:59
DX: R55 Syncope and collapse (principal); S01.419A Laceration without foreign body of unspecified cheek and temporomandibular area, initial encounter; E83.42 Hypomagnesemia; D69.6 Thrombocytopenia, unspecified; R00.0 Tachycardia, unspecified; J45.909 Unspecified asthma, uncomplicated; F10.10 Alcohol abuse, uncomplicated; I10 Essential (primary) hypertension; K74.60 Unspecified cirrhosis of liver; Z91.030 Bee allergy status; Z91.040 Latex allergy status; Z88.8 Allergy status to other drugs, medicaments and biological substances; Y92.009 Unspecified place in unspecified non-institutional (private) residence as the place of occurrence of the external cause; Y93.89 Activity, other specified; Y99.9 Unspecified external cause status
CPT/HCPCS: 12011; 70450; 70486; 71045; 72125; 80048; 80076; 80143; 82077; 82140; 82550; 82553; 82803; 83735; 83930; 84443; 84484; 85025; 85049; 85055; 85610; 90471; 90715; 93005; 93041; 94760; 96361; 96365; 96366; 99285; J3475

== ENCOUNTER 2024-01-02 07:09 | Inpatient (IN) | payer OTHER ==
[~2024-01-02] VITALS: Ht 170.2 cm; Wt 64.5 kg
[2024-01-02] VITALS (7 sets, daily range): BP systolic 103–137; BP diastolic 56–81; TEMP 97.7–98.8; O2SAT 95–99
[2024-01-02 08:32] LABS: ALBUMIN 2.5 G/DL (3.2-5.2); ALKALINE PHOSPHATASE 174 U/L (40-129); ALT/SGPT 37 U/L (7.0-40); AST/SGOT 241 U/L (<34); BILIRUBIN,DIRECT 9.1 MG/DL (<0.4); BILIRUBIN,TOTAL 12.2 MG/DL (0.3-1.2); BLOOD UREA NITROGEN 9 MG/DL (9-23); CALCIUM LEVEL 7.2 MG/DL (8.5-10.1); CARBON DIOXIDE LEVEL 21 MMOL/L (20-31); CHLORIDE LEVEL 104 MMOL/L (98-107); CREATININE FOR GFR 0.73 MG/DL (0.70-1.30); GLOMERULAR FILTRATION RATE > 60.0 (>56); GLUCOSE, FASTING 110 MG/DL (60-100); MAGNESIUM LEVEL 1.6 MG/DL (1.8-2.4); POTASSIUM SERUM 3.6 MMOL/L (3.5-5.1); SODIUM LEVEL 139 MMOL/L (136-145); TOTAL PROTEIN 6.3 G/DL (5.7-8.2)
[2024-01-02 09:16] LABS: BASO # 0.2 10^3/uL (0.0-0.2); BASO % 2.1 % (0.0-1.0); EOS # 0.1 10^3/uL (0.0-0.5); EOS % 0.9 % (0.0-3.0); HEMATOCRIT 24.7 % (42.0-52.0); HEMOGLOBIN 8.2 g/dl (13.5-17.5); LYMPH # 0.8 10^3/uL (1.5-5.0); LYMPH % 8.7 % (24.0-44.0); MEAN CORPUSCULAR HEMOGLOBIN 35.7 pg (27.0-33.0); MEAN CORPUSCULAR HGB CONC 33.2 g/dl (32.0-36.5); MEAN CORPUSCULAR VOLUME 107.4 fl (80.0-96.0); MONO % 10.9 % (2.0-8.0); NEUTROPHILS # 6.8 10^3/uL (1.5-8.5); NEUTROPHILS % 76.4 % (36.0-66.0)
[2024-01-02 09:17] LABS: PLATELET COUNT, AUTOMATED 50 10^3/uL (150-450)
[2024-01-02] MEDS ORDERED: ISOVUE-370 76% 100ML VIAL As Ordered ONE (09:20)
[2024-01-02 09:26] LABS: INR 1.41; PARTIAL THROMBOPLASTIN TIME 42.8 SECONDS (24.8-34.2); PROTHROMBIN TIME 17.5 SECONDS (12.5-14.5)
[2024-01-02] MEDS: PANTOPRAZOLE 40MG VIAL IV ONE (10:09)
[2024-01-02 11:17] LABS: APPEARANCE, URINE CLEAR (CLEAR); BACTERIA, URINE AUTO NEGATIVE (NEGATIVE); BILIRUBIN, URINE AUTO 2+ (NEGATIVE); BLOOD, URINE BLOOD NEGATIVE (NEGATIVE); COLOR, URINE AMBER (YELLOW); GLUCOSE, URINE (UA) AUTO NEGATIVE (NEGATIVE); KETONE, URINE AUTO NEGATIVE (NEGATIVE); LEUKOCYTE ESTERASE, URINE AUTO NEGATIVE (NEGATIVE); MUCUS, URINE SMALL (NEGATIVE); NITRITE, URINE AUTO NEGATIVE (NEGATIVE); PROTEIN, URINE AUTO NEGATIVE (NEGATIVE); RBC, URINE AUTO 1 /HPF (0-3); SQUAMOUS EPITHELIAL CELL UR AU 1 /HPF (0-6); WBC, URINE AUTO 1 /HPF (0-3)
[2024-01-02 11:26] LABS: SPECIFIC GRAVITY URINE AUTO >1.060 (1.002-1.035)
[2024-01-02] MEDS ORDERED: CETI-24 PO (12:14)
[2024-01-02] MEDS ORDERED: HOME MED LIST COMPLETE! XX SCH (12:15)
[2024-01-02 12:17] LABS: ETHYL ALCOHOL (ETHANOL) 0.315 % (0.000-0.010)
[2024-01-02 12:57] LABS: LIPASE 98 U/L (12-53)
[2024-01-02 13:12] LABS: IRON (FE) 40 UG/DL (65-175)
[2024-01-02] MEDS: MULTIVITAMINS/MINERALS THERAP 1 TAB PO SCH (13:40)
[2024-01-02] MEDS: THIAMINE 100 MG TAB PO SCH (13:41)
[2024-01-02] MEDS: PANTOPRAZOLE 40MG VIAL IV SCH (13:41)
[2024-01-02] MEDS: MAG SULF 1GM/100ML (MAG RUN) 1 GM in IV 1 EA IV ONE (13:41)
[2024-01-02] MEDS: FOLIC ACID 1MG TAB PO SCH (13:41)
[2024-01-02] MEDS: MAGNESIUM OXIDE 400MG TAB (MAG-OX) PO SCH (13:41)
[2024-01-02 13:46] LABS: CHOLESTEROL LEVEL 118 MG/DL (<200); CHOLESTEROL RISK RATIO 23 (<5); FERRITIN 124.5 NG/ML (10.5-307.3); FOLATE 6.68 NG/ML (>5.4); HDL CHOLESTEROL 4.99999 MG/DL (>40); LDL CHOLESTEROL 87.00001 MG/DL (<100); NON-HDL-C 113.00001 MG/DL; PERCENT SATURATION 17.3 % (19.7-50.0); TOTAL IRON BINDING CAPACITY 231 UG/DL (250-425); TRIGLYCERIDES LEVEL 130 MG/DL (<150); VITAMIN B12 LEVEL > 2000 PG/ML (211-911)
[2024-01-02] MEDS: prednisoLONE (PRELONE) 15MG/5ML SYRUP UDC PO SCH (15:15)
[2024-01-02] MEDS: ALBUTEROL SULFATE 2.5MG/0.5ML INH NEB SOLN NEB SCH (16:00)
[2024-01-02 19:35] LABS: HEMATOCRIT 27.2 % (42.0-52.0); HEMOGLOBIN 9.2 g/dl (13.5-17.5)
[2024-01-03] VITALS (11 sets, daily range): BP systolic 106–152; BP diastolic 56–94; TEMP 97.7–98.6; O2SAT 93–98
[2024-01-03 06:15] LABS: HEMATOCRIT 21.7 % (42.0-52.0); HEMOGLOBIN 7.6 g/dl (13.5-17.5); MEAN CORPUSCULAR HEMOGLOBIN 32.8 pg (27.0-33.0); MEAN CORPUSCULAR VOLUME 93.5 fl (80.0-96.0); PLATELET COUNT, AUTOMATED 41 10^3/uL (150-450); RED BLOOD COUNT 2.32 10^6/uL (4.30-6.10); WHITE BLOOD COUNT 7.3 10^3/uL (4.0-10.0)
[2024-01-03 06:23] LABS: INR 1.64; PROTHROMBIN TIME 19.6 SECONDS (12.5-14.5)
[2024-01-03 06:52] LABS: ALBUMIN 2.2 G/DL (3.2-5.2); ALKALINE PHOSPHATASE 150 U/L (40-129); ALT/SGPT 30 U/L (7.0-40); AST/SGOT 181 U/L (<34); BILIRUBIN,TOTAL 11.9 MG/DL (0.3-1.2); BLOOD UREA NITROGEN 8 MG/DL (9-23); CALCIUM LEVEL 6.7 MG/DL (8.5-10.1); CARBON DIOXIDE LEVEL 21 MMOL/L (20-31); CHLORIDE LEVEL 104 MMOL/L (98-107); GLOMERULAR FILTRATION RATE > 60.0 (>56); GLUCOSE, FASTING 99 MG/DL (60-100); MAGNESIUM LEVEL 1.6 MG/DL (1.8-2.4); POTASSIUM SERUM 3.2 MMOL/L (3.5-5.1); SODIUM LEVEL 135 MMOL/L (136-145); TOTAL PROTEIN 5.4 G/DL (5.7-8.2)
[2024-01-03] MEDS: MAG SULF 1GM/100ML (MAG RUN) 1 GM in IV 1 EA IV SCH (08:02)
[2024-01-03] MEDS: POTASSIUM CHLORIDE 10MEQ SR TABLET PO SCH (08:03)
[2024-01-03] MEDS: LORazepam 2 MG TAB PO PRN (08:14)
[2024-01-03 09:10] LABS: Hemoglobin A1c < 4.2 (<5.7)
[2024-01-03 15:46] LABS: BASO % 0.3 % (0.0-1.0); HEMATOCRIT 26.5 % (42.0-52.0); HEMOGLOBIN 9.2 g/dl (13.5-17.5); LYMPH # 0.4 10^3/uL (1.5-5.0); LYMPH % 4.9 % (24.0-44.0); MEAN CORPUSCULAR HEMOGLOBIN 32.2 pg (27.0-33.0); MEAN CORPUSCULAR HGB CONC 34.7 g/dl (32.0-36.5); MEAN CORPUSCULAR VOLUME 92.7 fl (80.0-96.0); MONO # 0.7 10^3/uL (0.0-0.8); NEUTROPHILS # 6.3 10^3/uL (1.5-8.5); NEUTROPHILS % 83.7 % (36.0-66.0); RED BLOOD COUNT 2.86 10^6/uL (4.30-6.10); WHITE BLOOD COUNT 7.6 10^3/uL (4.0-10.0)
[2024-01-03 16:09] LABS: BLOOD UREA NITROGEN 8 MG/DL (9-23); CALCIUM LEVEL 7.2 MG/DL (8.5-10.1); CARBON DIOXIDE LEVEL 21 MMOL/L (20-31); CHLORIDE LEVEL 104 MMOL/L (98-107); CREATININE FOR GFR 0.58 MG/DL (0.70-1.30); GLOMERULAR FILTRATION RATE > 60.0 (>56); GLUCOSE, FASTING 132 MG/DL (60-100); MAGNESIUM LEVEL 2.1 MG/DL (1.8-2.4); POTASSIUM SERUM 3.5 MMOL/L (3.5-5.1); SODIUM LEVEL 134 MMOL/L (136-145)
[2024-01-03 16:25] LABS: PLATELET COUNT, AUTOMATED 41 10^3/uL (150-450)
[2024-01-04] VITALS (14 sets, daily range): BP systolic 108–142; BP diastolic 52–89; TEMP 97.7–98.9; O2SAT 94–100
[2024-01-04 06:44] LABS: BASO % 0.3 % (0.0-1.0); EOS % 0.1 % (0.0-3.0); HEMATOCRIT 27.7 % (42.0-52.0); HEMOGLOBIN 9.6 g/dl (13.5-17.5); LYMPH % 9.4 % (24.0-44.0); MEAN CORPUSCULAR HEMOGLOBIN 32.3 pg (27.0-33.0); MEAN CORPUSCULAR HGB CONC 34.7 g/dl (32.0-36.5); MEAN CORPUSCULAR VOLUME 93.3 fl (80.0-96.0); MONO # 1.3 10^3/uL (0.0-0.8); NEUTROPHILS # 7.8 10^3/uL (1.5-8.5); NEUTROPHILS % 75.5 % (36.0-66.0); RED BLOOD COUNT 2.97 10^6/uL (4.30-6.10); WHITE BLOOD COUNT 10.3 10^3/uL (4.0-10.0)
[2024-01-04 06:59] LABS: PLATELET COUNT, AUTOMATED 51 10^3/uL (150-450)
[2024-01-04 07:27] LABS: ALBUMIN 2.3 G/DL (3.2-5.2); ALKALINE PHOSPHATASE 159 U/L (40-129); ALT/SGPT 31 U/L (7.0-40); AST/SGOT 159 U/L (<34); BILIRUBIN,TOTAL 14.3 MG/DL (0.3-1.2); BLOOD UREA NITROGEN 7 MG/DL (9-23); CALCIUM LEVEL 7.1 MG/DL (8.5-10.1); CARBON DIOXIDE LEVEL 18 MMOL/L (20-31); CHLORIDE LEVEL 106 MMOL/L (98-107); CREATININE FOR GFR 0.56 MG/DL (0.70-1.30); GLOMERULAR FILTRATION RATE > 60.0 (>56); GLUCOSE, FASTING 91 MG/DL (60-100); POTASSIUM SERUM 3.6 MMOL/L (3.5-5.1); SODIUM LEVEL 134 MMOL/L (136-145); TOTAL PROTEIN 5.7 G/DL (5.7-8.2)
[2024-01-04 07:53] LABS: Estimated Ave Glu(eAG) 4.2 mmol/L; Hemoglobin A1c 4.3 (<5.7)
[2024-01-04] MEDS: OXAZEPAM 10MG CAP PO ONE (13:04)
[2024-01-04] MEDS: OXAZEPAM 15MG CAP PO SCH (22:11)
[2024-01-05] VITALS (9 sets, daily range): BP systolic 115–128; BP diastolic 66–79; TEMP 97.5–97.7; O2SAT 94–99
[2024-01-05 06:21] LABS: BASO % 0.2 % (0.0-1.0); EOS % 0.1 % (0.0-3.0); HEMATOCRIT 28.5 % (42.0-52.0); HEMOGLOBIN 9.8 g/dl (13.5-17.5); LYMPH # 0.8 10^3/uL (1.5-5.0); LYMPH % 8.8 % (24.0-44.0); MEAN CORPUSCULAR HEMOGLOBIN 32.6 pg (27.0-33.0); MEAN CORPUSCULAR HGB CONC 34.4 g/dl (32.0-36.5); MEAN CORPUSCULAR VOLUME 94.7 fl (80.0-96.0); MONO # 1.2 10^3/uL (0.0-0.8); MONO % 13.4 % (2.0-8.0); NEUTROPHILS # 6.9 10^3/uL (1.5-8.5); NEUTROPHILS % 76.4 % (36.0-66.0); RED BLOOD COUNT 3.01 10^6/uL (4.30-6.10); WHITE BLOOD COUNT 9.1 10^3/uL (4.0-10.0)
[2024-01-05 06:23] LABS: PLATELET COUNT, AUTOMATED 75 10^3/uL (150-450)
[2024-01-05 06:51] LABS: ALBUMIN 2.3 G/DL (3.2-5.2); ALKALINE PHOSPHATASE 155 U/L (40-129); ALT/SGPT 34 U/L (7.0-40); AST/SGOT 141 U/L (<34); BILIRUBIN,TOTAL 14.8 MG/DL (0.3-1.2); BLOOD UREA NITROGEN 8 MG/DL (9-23); CALCIUM LEVEL 7.1 MG/DL (8.5-10.1); CARBON DIOXIDE LEVEL 20 MMOL/L (20-31); CHLORIDE LEVEL 109 MMOL/L (98-107); CREATININE FOR GFR 0.62 MG/DL (0.70-1.30); GLOMERULAR FILTRATION RATE > 60.0 (>56); GLUCOSE, FASTING 92 MG/DL (60-100); POTASSIUM SERUM 4.1 MMOL/L (3.5-5.1); SODIUM LEVEL 135 MMOL/L (136-145); TOTAL PROTEIN 5.7 G/DL (5.7-8.2)
[2024-01-06] VITALS (11 sets, daily range): BP systolic 92–125; BP diastolic 51–82; TEMP 97.5–98.1; O2SAT 98–100
[2024-01-06 05:28] LABS: BASO % 0.1 % (0.0-1.0); EOS % 0.2 % (0.0-3.0); HEMATOCRIT 29.6 % (42.0-52.0); LYMPH # 1.4 10^3/uL (1.5-5.0); LYMPH % 13.4 % (24.0-44.0); MEAN CORPUSCULAR HEMOGLOBIN 32.4 pg (27.0-33.0); MEAN CORPUSCULAR HGB CONC 33.8 g/dl (32.0-36.5); MEAN CORPUSCULAR VOLUME 95.8 fl (80.0-96.0); MONO # 1.4 10^3/uL (0.0-0.8); MONO % 13.2 % (2.0-8.0); NEUTROPHILS # 7.4 10^3/uL (1.5-8.5); NEUTROPHILS % 72.2 % (36.0-66.0); RED BLOOD COUNT 3.09 10^6/uL (4.30-6.10); WHITE BLOOD COUNT 10.2 10^3/uL (4.0-10.0)
[2024-01-06 05:30] LABS: PLATELET COUNT, AUTOMATED 96 10^3/uL (150-450)
[2024-01-06 06:02] LABS: ALBUMIN 2.3 G/DL (3.2-5.2); ALKALINE PHOSPHATASE 156 U/L (40-129); ALT/SGPT 39 U/L (7.0-40); AST/SGOT 129 U/L (<34); BILIRUBIN,TOTAL 15.4 MG/DL (0.3-1.2); BLOOD UREA NITROGEN 11 MG/DL (9-23); CALCIUM LEVEL 7.2 MG/DL (8.5-10.1); CARBON DIOXIDE LEVEL 20 MMOL/L (20-31); CHLORIDE LEVEL 106 MMOL/L (98-107); CREATININE FOR GFR 0.65 MG/DL (0.70-1.30); GLOMERULAR FILTRATION RATE > 60.0 (>56); GLUCOSE, FASTING 80 MG/DL (60-100); POTASSIUM SERUM 3.9 MMOL/L (3.5-5.1); SODIUM LEVEL 133 MMOL/L (136-145)
[2024-01-06] MEDS ORDERED: ALBUTEROL SULFATE 2.5MG/0.5ML INH NEB SOLN NEB PRN (11:35)
[2024-01-06] MEDS: LACTULOSE 20GM/30ML SYRUP UDC PO PRN (21:55)
[2024-01-07] VITALS (9 sets, daily range): BP systolic 98–125; BP diastolic 52–84; TEMP 97.7–97.9; O2SAT 97–98
[2024-01-07 06:01] LABS: BASO % 0.1 % (0.0-1.0); HEMATOCRIT 30.9 % (42.0-52.0); HEMOGLOBIN 10.6 g/dl (13.5-17.5); LYMPH # 0.8 10^3/uL (1.5-5.0); LYMPH % 7.6 % (24.0-44.0); MEAN CORPUSCULAR HEMOGLOBIN 33.2 pg (27.0-33.0); MEAN CORPUSCULAR HGB CONC 34.3 g/dl (32.0-36.5); MEAN CORPUSCULAR VOLUME 96.9 fl (80.0-96.0); MONO # 1.1 10^3/uL (0.0-0.8); MONO % 10.7 % (2.0-8.0); NEUTROPHILS # 8.2 10^3/uL (1.5-8.5); NEUTROPHILS % 80.7 % (36.0-66.0); PLATELET COUNT, AUTOMATED 115 10^3/uL (150-450); RED BLOOD COUNT 3.19 10^6/uL (4.30-6.10); WHITE BLOOD COUNT 10.2 10^3/uL (4.0-10.0)
[2024-01-07 06:14] LABS: INR 1.54; PROTHROMBIN TIME 18.7 SECONDS (12.5-14.5)
[2024-01-07 06:48] LABS: ALBUMIN 2.3 G/DL (3.2-5.2); ALKALINE PHOSPHATASE 182 U/L (40-129); ALT/SGPT 43 U/L (7.0-40); AST/SGOT 114 U/L (<34); BILIRUBIN,TOTAL 16.3 MG/DL (0.3-1.2); BLOOD UREA NITROGEN 10 MG/DL (9-23); CALCIUM LEVEL 7.7 MG/DL (8.5-10.1); CARBON DIOXIDE LEVEL 18 MMOL/L (20-31); CHLORIDE LEVEL 106 MMOL/L (98-107); CREATININE FOR GFR 0.58 MG/DL (0.70-1.30); GLOMERULAR FILTRATION RATE > 60.0 (>56); GLUCOSE, FASTING 146 MG/DL (60-100); POTASSIUM SERUM 3.3 MMOL/L (3.5-5.1); SODIUM LEVEL 135 MMOL/L (136-145); TOTAL PROTEIN 6.1 G/DL (5.7-8.2)
[2024-01-07] MEDS: SODIUM BICARBONATE 325 MG TAB PO SCH (08:32)
[2024-01-07] MEDS: POTASSIUM CHLORIDE 10MEQ SR TABLET PO SCH (13:19)
[2024-01-08] VITALS (8 sets, daily range): BP systolic 99–135; BP diastolic 54–75; TEMP 97.7–97.9; O2SAT 98
[2024-01-08 06:46] LABS: BASO % 0.2 % (0.0-1.0); EOS # 0.2 10^3/uL (0.0-0.5); EOS % 1.6 % (0.0-3.0); HEMATOCRIT 32.9 % (42.0-52.0); HEMOGLOBIN 10.9 g/dl (13.5-17.5); LYMPH # 1.4 10^3/uL (1.5-5.0); LYMPH % 13.5 % (24.0-44.0); MEAN CORPUSCULAR HEMOGLOBIN 32.3 pg (27.0-33.0); MEAN CORPUSCULAR HGB CONC 33.1 g/dl (32.0-36.5); MEAN CORPUSCULAR VOLUME 97.6 fl (80.0-96.0); MONO # 1.3 10^3/uL (0.0-0.8); MONO % 12.9 % (2.0-8.0); NEUTROPHILS # 7.3 10^3/uL (1.5-8.5); NEUTROPHILS % 70.9 % (36.0-66.0); PLATELET COUNT, AUTOMATED 125 10^3/uL (150-450); RED BLOOD COUNT 3.37 10^6/uL (4.30-6.10); WHITE BLOOD COUNT 10.2 10^3/uL (4.0-10.0)
[2024-01-08 07:22] LABS: CPK CREATINE PHOSPHOKINASE 171 U/L (46-171)
[2024-01-08 07:31] LABS: ALBUMIN 2.3 G/DL (3.2-5.2); ALKALINE PHOSPHATASE 194 U/L (40-129); ALT/SGPT 42 U/L (7.0-40); AST/SGOT 106 U/L (<34); BILIRUBIN,TOTAL 15.2 MG/DL (0.3-1.2); BLOOD UREA NITROGEN 10 MG/DL (9-23); CALCIUM LEVEL 7.5 MG/DL (8.5-10.1); CARBON DIOXIDE LEVEL 22 MMOL/L (20-31); CHLORIDE LEVEL 105 MMOL/L (98-107); CREATININE FOR GFR 0.69 MG/DL (0.70-1.30); GLOMERULAR FILTRATION RATE > 60.0 (>56); GLUCOSE, FASTING 89 MG/DL (60-100); POTASSIUM SERUM 3.5 MMOL/L (3.5-5.1); SODIUM LEVEL 135 MMOL/L (136-145); TOTAL PROTEIN 6.2 G/DL (5.7-8.2)
[2024-01-08 11:36] LABS: MAGNESIUM LEVEL 1.8 MG/DL (1.8-2.4); PHOSPHORUS LEVEL 1.4 MG/DL (2.5-4.9)
[2024-01-09] VITALS: BP 124/71
[2024-01-09 04:00] VITALS: BP 104/59
[2024-01-09 04:47] VITALS: BP 109/68; TEMP 97.7; O2SAT 98
[2024-01-09 06:05] LABS: BASO % 0.4 % (0.0-1.0); EOS # 0.2 10^3/uL (0.0-0.5); EOS % 2.7 % (0.0-3.0); HEMATOCRIT 29.2 % (42.0-52.0); HEMOGLOBIN 9.9 g/dl (13.5-17.5); LYMPH # 1.2 10^3/uL (1.5-5.0); LYMPH % 15.1 % (24.0-44.0); MEAN CORPUSCULAR HEMOGLOBIN 32.8 pg (27.0-33.0); MEAN CORPUSCULAR HGB CONC 33.9 g/dl (32.0-36.5); MEAN CORPUSCULAR VOLUME 96.7 fl (80.0-96.0); MONO # 1.2 10^3/uL (0.0-0.8); MONO % 15.9 % (2.0-8.0); PLATELET COUNT, AUTOMATED 108 10^3/uL (150-450); RED BLOOD COUNT 3.02 10^6/uL (4.30-6.10); WHITE BLOOD COUNT 7.7 10^3/uL (4.0-10.0)
[2024-01-09 06:39] LABS: ALKALINE PHOSPHATASE 173 U/L (40-129); ALT/SGPT 38 U/L (7.0-40); AST/SGOT 86 U/L (<34); BILIRUBIN,TOTAL 13.1 MG/DL (0.3-1.2); BLOOD UREA NITROGEN 10 MG/DL (9-23); CALCIUM LEVEL 7.3 MG/DL (8.5-10.1); CARBON DIOXIDE LEVEL 23 MMOL/L (20-31); CHLORIDE LEVEL 106 MMOL/L (98-107); CREATININE FOR GFR 0.69 MG/DL (0.70-1.30); GLOMERULAR FILTRATION RATE > 60.0 (>56); GLUCOSE, FASTING 78 MG/DL (60-100); POTASSIUM SERUM 3.6 MMOL/L (3.5-5.1); SODIUM LEVEL 136 MMOL/L (136-145); TOTAL PROTEIN 5.5 G/DL (5.7-8.2)
[2024-01-09 08:00] VITALS: BP 117/75
[2024-01-09] MEDS ORDERED: MORPHINE 10MG/0.5ML ORAL CONCENTRATE SOLUTION U/D SL PRN (11:20)
[2024-01-09] MEDS ORDERED: ONDANSETRON 4MG ORAL DISINTEGRATING TAB PO PRN (11:20)
[2024-01-09] MEDS: LORazepam 1 MG TAB PO PRN (21:38)
[2024-01-09] MEDS: diazePAM 5MG TABLET PO SCH (21:38)
[2024-01-10] MEDS: ONDANSETRON 4MG ORAL DISINTEGRATING TAB PO SCH (13:02)
[2024-01-12] MEDS: MORPHINE 10MG/0.5ML ORAL CONCENTRATE SOLUTION U/D SL PRN (19:36)
[2024-01-13 21:00] VITALS: BP 109/68; TEMP 97.7; O2SAT 98
[2024-01-14 10:30] VITALS: BP 109/68; TEMP 97.7; O2SAT 98
[2024-01-17] MEDS: MORPHINE 10MG/0.5ML ORAL CONCENTRATE SOLUTION U/D SL SCH (13:57)
[2024-01-17] MEDS ORDERED: diazePAM 10 MG TAB PO SCH (21:00)
[2024-01-17] MEDS: LORazepam 2 MG TAB PO SCH (21:12)
[2024-01-17] MEDS: diazePAM 5MG TABLET PO SCH (21:12)
[2024-01-20] MEDS: MORPHINE 10MG/0.5ML ORAL CONCENTRATE SOLUTION U/D SL SCH (16:46)
[2024-01-20] MEDS: MORPHINE 10MG/0.5ML ORAL CONCENTRATE SOLUTION U/D SL PRN (18:57)
[2024-01-22] MEDS: HYOSCYAMINE SULFATE 0.125 MG SUBL TABLET PO PRN (08:17)
[2024-01-22] MEDS: ATROPINE SULFATE 1% OPHTH SOLN 2ML BTL SL PRN (08:23)
[2024-01-22] MEDS: SCOPOLAMINE 1MG TRANSDERMAL PATCH TOP SCH (08:38)
[2024-01-25] MEDS: LORazepam 1 MG TAB PO PRN (13:30)
[2024-01-25] MEDS: MORPHINE 10MG/0.5ML ORAL CONCENTRATE SOLUTION U/D SL PRN (14:14)
[2024-01-25] MEDS: LORazepam 2 MG TAB PO SCH (16:30)
[2024-01-25] MEDS: MORPHINE 10MG/0.5ML ORAL CONCENTRATE SOLUTION U/D SL SCH (17:59)
[2024-01-26] MEDS: LORazepam 2 MG TAB PO PRN (11:36)
[2024-01-26] MEDS ORDERED: LORazepam 1 MG TAB PO PRN (14:00)
[2024-01-26] MEDS: LORazepam 1 MG TAB PO SCH (15:23)
[2024-01-26] MEDS: MORPHINE 10MG/0.5ML ORAL CONCENTRATE SOLUTION U/D SL PRN (16:05)
[2024-01-26] MEDS ORDERED: MORPHINE 10MG/0.5ML ORAL CONCENTRATE SOLUTION U/D SL SCH (17:00)
== END 2024-01-26 16:44 | disposition expired | DRG 663 ==
LOC: M ED 07:09 → EDBD 07:09 → M ED INP 12:09 → M MSPAV 13:27
PROVIDERS: ADMIT Internal Medicine; ATTEND Student in an Organized Health Care Education/Training Program
PROC: 30233N1 Transfusion of Nonautologous Red Blood Cells into Peripheral Vein, Percutaneous Approach (ICD-10-PCS; principal; 2024-01-02)
DX: D62 Acute posthemorrhagic anemia (principal); K72.01 Acute and subacute hepatic failure with coma; E43 Unspecified severe protein-calorie malnutrition; G93.41 Metabolic encephalopathy; F10.20 Alcohol dependence, uncomplicated; E72.20 Disorder of urea cycle metabolism, unspecified; D69.6 Thrombocytopenia, unspecified; C22.0 Liver cell carcinoma; K70.30 Alcoholic cirrhosis of liver without ascites; E83.42 Hypomagnesemia; K70.10 Alcoholic hepatitis without ascites; E87.6 Hypokalemia; F41.9 Anxiety disorder, unspecified; J45.909 Unspecified asthma, uncomplicated; M21.371 Foot drop, right foot; R58 Hemorrhage, not elsewhere classified; R29.6 Repeated falls; Z92.21 Personal history of antineoplastic chemotherapy; Z92.3 Personal history of irradiation; G40.909 Epilepsy, unspecified, not intractable, without status epilepticus; Z51.5 Encounter for palliative care; Z91.030 Bee allergy status; Z91.040 Latex allergy status; F17.220 Nicotine dependence, chewing tobacco, uncomplicated; Z66 Do not resuscitate; S01.81XD Laceration without foreign body of other part of head, subsequent encounter